=== PATIENT | male | born 1985 | race Two or more races ===

== ENCOUNTER 2021-06-04 03:35 | Emergency (ER) | payer OTHER, SELFPAY ==
--- NOTE | ~2021-06-04 | XR_ITS ---
EXAMINATION: XR CHEST CLINICAL INFORMATION: Chest pain COMPARISON: None TECHNIQUE: Frontal view of the chest was obtained. FINDINGS: Cardiac leads overlie the chest. The lungs are well expanded. There is no focal consolidation, edema, or effusion. No pneumothorax. The cardiomediastinal silhouette is within normal limits. No acute osseous abnormality. XR/XR chest 1V IMPRESSION: No acute pulmonary finding.
[2021-06-04 03:38] VITALS: BP 154/82; PULSE 133; RESP 20; TEMP 37.2; O2SAT 97; BMI 27.8
--- NOTE | 2021-06-04 03:41 | ECG_ITS ---
Test Reason : CP Blood Pressure : / mmHG Vent. Rate : 127 BPM Atrial Rate : 127 BPM P-R Int : 154 ms QRS Dur : 088 ms QT Int : 320 ms P-R-T Axes : 044 023 021 degrees QTc Int : 465 ms Sinus tachycardia Otherwise normal ECG No previous ECGs available Referred By: Generic ED Physician Electronically Signed By:JOHN TANNER MD
[2021-06-04 03:57] VITALS: BP 133/86; PULSE 133; RESP 15; O2SAT 97
[2021-06-04 04:02] LABS: MANUAL DIFF FLAG NO
[2021-06-04 04:03] LABS: Basophils Percent Auto 0.3 % (0-2); Eosinophils Percent Auto 0.1 % (0-4); Hematocrit 36.7 % (42-52); Hemoglobin 12.4 g/dl (14.0-18.0); Imm Gran Abs Auto 0.03 X10*3/uL (0.00-0.03); Imm Gran Pct Auto 0.3 % (0.0-0.4); Lymphocytes Absolute Auto 1.1 X10*3/uL (1.2-4.9); Lymphocytes Percent Auto 9.3 % (20-40); Mean Corpuscular HGB Conc 33.8 g/dl (31.0-36.0); Mean Corpuscular Volume 88.6 fL (80-98); Mean Platelet Volume 8.9 fL (9.4-12.4); Monocytes Absolute Auto 0.9 X10*3/uL (0.1-1.2); Monocytes Percent Auto 7.6 % (2-11); Neutrophils Absolute Auto 9.6 X10*3/uL (2.0-8.3); Neutrophils Percent Auto 82.4 % (45-73); Platelet Count 255 X10*3/uL (160-400); Red Blood Count 4.14 X10*6/uL (4.60-5.80); Red Cell Distribution Width 13.1 % (11.0-16.0); White Blood Count 11.6 X10*3/uL (4.8-10.8)
--- NOTE | 2021-06-04 04:11 | ED.CHESTPAIN ---
HPI - Chest Pain General Chief Complaint: Chest Pain Stated Complaint: Sharp pain when inhaling Time Seen by Provider: 06/04/21 03:55 Source: patient Mode of arrival: ambulatory Limitations: no limitations History of Present Illness HPI narrative: Patient no significant past medical history use cocaine occasionally notice pain in the left chest since 22:00 which is sharp in character get worse with movement use cocaine and midnight pain states same the secured to the hospital Related Data Allergies Allergy/AdvReac Type Severity Reaction Status Date / Time No Known Allergies Allergy Verified 06/04/21 03:41 [facility] Past Medical History Medical History (Updated 06/04/21 @ 04:52 by Mitch Ambriz MD) Asthma Social History Social History Advance Directives: No Advance Directives Information Provided: No Physical Exam Vital Signs: Vital Signs: Last Vital Signs Temp 98.9 F 06/04/21 03:38 Pulse 109 H 06/04/21 05:04 Resp 16 06/04/21 05:04 BP 137/77 06/04/21 05:04 Pulse Ox 98 06/04/21 05:04 Body Mass Index 27.8 Appearance: Alert. Oriented X3. No acute distress. Eyes: No pallor or icterus ENT: Pharynx normal. Oral Mucosa moist Neck: Normal inspection. Neck supple. CVS: Sinus tachycardia no murmur or gallop Pulses normal. Respiratory: No respiratory distress. Equal air entry bilateral, no wheezing/rales/rhonchi Abdomen: Soft and nontender. Bowel sounds are present, no mass palpable, no CVA tenderness Skin: Skin warm and dry. Normal skin color. Normal skin turgor. Extremities: No lower extremity edema. No calf tenderness Neuro: Oriented X 3 MDM - Chest Pain MDM Narrative Medical decision making narrative: Patient has atypical sharp pain for more than few hours with history of cocaine use no chest pain at this time EKG without any acute ischemic changes high sensitive troponin negative will discharge patient home Lab Data Attestation: I reviewed the patient's lab results. Result diagrams: 06/04/21 03:56 06/04/21 03:56 Labs: Lab Results 06/04/21 06/04/21 06/04/21 Range/Units 03:56 03:56 03:56 WBC 11.6 H (4.8-10.8) X10*3/uL RBC 4.14 L (4.60-5.80) X10*6/uL Hgb 12.4 L (14.0-18.0) g/dl Hct 36.7 L (42-52) % MCV 88.6 (80-98) fL MCH 30.0 (27.0-33.0) pg MCHC 33.8 (31.0-36.0) g/dl RDW 13.1 (11.0-16.0) % Plt Count 255 (160-400) X10*3/uL MPV 8.9 L (9.4-12.4) fL Immature Gran % (Auto) 0.3 (0.0-0.4) % Neut % (Auto) 82.4 H (45-73) % Lymph % (Auto) 9.3 L (20-40) % [place] % (Auto) 7.6 (2-11) % Eos % (Auto) 0.1 (0-4) % Baso % (Auto) 0.3 (0-2) % Lymph # (Auto) 1.1 L (1.2-4.9) X10*3/uL [place] # (Auto) 0.9 (0.1-1.2) X10*3/uL Eos # (Auto) 0.0 (0.0-0.4) X10*3/uL Baso # (Auto) 0.0 (0.0-0.2) X10*3/uL Abs Immat Gran (auto) 0.03 (0.00-0.03) X10*3/uL Absolute Neuts (auto) 9.6 H (2.0-8.3) X10*3/uL Absolute Nucleated RBC 0.000 (0.0-0.012) X10*3/uL Nucleated RBC % (auto) 0.0 (0.0-0.2) /100WBC Sodium 142 (135-145) mmol/L Potassium 4.1 (3.3-5.1) mmol/L Chloride 106 (96-108) mmol/L Carbon Dioxide 27 (22-29) mmol/L Anion Gap 13 (12-20) BUN 15 (9-16) mg/dL Creatinine 1.13 (0.5-1.4) mg/dL Estim Creat Clear Calc 98.2 Estimated GFR > 60 Random Glucose 121 H (60-115) mg/dL Calcium 9.4 (8.4-10.2) mg/dL Troponin I High Sens < 3.5 (<3.5-35.0) ng/L ECG Data ECG #1: Attestation: I personally reviewed and interpreted this ECG as follows: Interpretation: Sinus tachycardia with heart rate 127 beats per minute normal intervals normal axis no acute ST-T vision no acute ischemia Discharge Plan Discharge Clinical Impression: Chest pain Qualifiers: Chest pain type: chest pain on breathing Qualified Code(s): R07.1 - Chest pain on breathing Patient Disposition: Home, Self-Care Instructions: Chest Pain (ED) Additional Instructions: Your pain is likely musculoskeletal pain not from the heart. Do not use cocaine. Follow-up with PCP if chest pain continues or come to the ER Stand Alone Forms: Work/School Release Interventions: ED Discharge Assessment Last Done: 06/04/21 05:21 Discharge Date/Time: 06/04/21 05:22
[2021-06-04] MEDS: 0.9 % Sodium Chloride 1,000 ML 999 ML IVCONT (04:20)
[2021-06-04 04:26] LABS: Anion Gap 13 (12-20); Blood Urea Nitrogen 15 mg/dL (9-16); Calcium 9.4 mg/dL (8.4-10.2); Carbon Dioxide 27 mmol/L (22-29); Chloride 106 mmol/L (96-108); Creatinine Clr Calc Pharmacy 98.2; Estimated Glomerular Filt Rate > 60; Glucose Random 121 mg/dL (60-115); Potassium 4.1 mmol/L (3.3-5.1); Sodium 142 mmol/L (135-145)
[2021-06-04 04:27] LABS: Troponin-I High Sensitivity < 3.5 ng/L (<3.5-35.0)
[2021-06-04 05:04] VITALS: BP 137/77; PULSE 109; RESP 16; O2SAT 98
== END 2021-06-04 05:22 | disposition home or self-care (01) ==
PROVIDERS: Emergency Provider Internal Medicine; PCP Internal Medicine
DX: R07.1 Chest pain on breathing (principal); R00.0 Tachycardia, unspecified; F14.90 Cocaine use, unspecified, uncomplicated
CPT/HCPCS: 36415; 71045; 80048; 84484; 85025; 93005; 96360; 99284

== ENCOUNTER 2022-11-11 13:26 | Emergency (ER) | payer OTHER, SELFPAY ==
--- NOTE | ~2022-11-11 | XR_ITS ---
EXAMINATION: XR CHEST CLINICAL INFORMATION: Nausea and vomiting with cough and sputum. Exposed to fluid. COMPARISON: June 04, 2021 TECHNIQUE: 2 views of the chest were obtained. FINDINGS: No significant abnormality is noted involving the heart, lungs, mediastinum, bony thorax or soft tissues. XR/XR chest 2V IMPRESSION: No acute disease.
[2022-11-11 13:59] VITALS: BP 100/72; PULSE 78; RESP 19; TEMP 36.6; O2SAT 98; BMI 29.9
--- NOTE | 2022-11-11 13:59 | ED.GENADULT ---
HPI - General Adult General Chief complaint: Nausea/Vomiting/Diarrhea <AARON Vazquez - Last Filed: 11/11/22 14:01> Stated complaint: fever, coughing, chills ,not feeling well <AARON Vazquez - Last Filed: 11/11/22 14:01> Time Seen by Provider: 11/11/22 15:08 <AARON Vazquez - Last Filed: 11/11/22 14:01> Source: patient <AARON Sun - Last Filed: 11/11/22 17:17> Mode of arrival: ambulatory <AARON Sun Last Filed: 11/11/22 17:17> Limitations: no limitations <AARON Sun Last Filed: 11/11/22 17:17> History of Present Illness HPI narrative: 37-year-old male presents the ER for evaluation of 4 days of not feeling well. He states he has had body aches, chills, coughing, nausea and vomiting for the last few days. He has filled weak and tired. He reports his kids have similar symptoms. He has been unable to work this week. He states his kids had similar symptoms. He denies any chest pain, difficulty breathing, abdominal pain. He reports upset stomach and decreased appetite but no abdominal pain per se. No known COVID or flu exposures. <AARON Sun - Last Filed: 11/11/22 17:17> MD complaint: Chills, vomiting, body aches <AARON Sun Last Filed: 11/11/22 17:17> Onset (ago): day(s) (4) <AARON Sun - Last Filed: 11/11/22 17:17> Radiation: non-radiation <AARON Sun Last Filed: 11/11/22 17:17> Severity: moderate <AARON Sun Last Filed: 11/11/22 17:17> Severity scale (1-10): 6 <AARON Sun Last Filed: 11/11/22 17:17> Quality: aching <AARON Sun Last Filed: 11/11/22 17:17> Pain Consistency: intermittent <AARON Sun - Last Filed: 11/11/22 17:17> Relieving factors: none <AARON Sun Last Filed: 11/11/22 17:17> Exacerbating factors: none <AARON Sun - Last Filed: 11/11/22 17:17> Associated symptoms: cough, fever/chills, headaches, loss of appetite, malaise, nausea/vomiting and weakness <AARON Sun - Last Filed: 11/11/22 17:17> Treatments prior to arrival: none <AARON Sun - Last Filed: 11/11/22 17:17> Related Data Home medications: Previous Rx's Medication Instructions Recorded benzonatate 100 mg capsule 100 mg PO TID PRN cough #30 caps 11/11/22 ondansetron 4 mg disintegrating 4 mg PO Q8H PRN nausea and 11/11/22 tablet vomiting #7 tabs <AARON Vazquez - Last Filed: 11/11/22 14:01> Allergies/adverse reactions: Allergies Allergy/AdvReac Type Severity Reaction Status Date / Time No Known Allergies Allergy Verified 06/04/21 03:41 <AARON Vazquez - Last Filed: 11/11/22 14:01> Review of Systems Review of Systems: Yes all other systems are reviewed and are negative <AARON Sun - Last Filed: 11/11/22 17:17> [facility] Past Medical History Medical History: Medical History (Updated 11/11/22 @ 15:09 by AARON Sun) Asthma <AARON Vazquez - Last Filed: 11/11/22 14:01> Social History Social History: Social History Advance Directives: No <AARON Vazquez Last Filed: 11/11/22 14:01> Physical Exam ED Vital Signs: Vital Signs - 24 hr 11/11/22 13:59 11/11/22 14:58 Temperature 98 F 98.0 F Pulse Rate 78 101 H Respiratory Rate 19 20 Blood Pressure 100/72 103/74 Pulse Oximetry 98 96 Oxygen Delivery Method Room Air Room Air BMI result Body Mass Index 29.9 <AARON Vazquez Last Filed: 11/11/22 14:01> Vital Signs - 24 hr 11/11/22 13:59 11/11/22 14:58 Temperature 98 F 98.0 F Pulse Rate 78 101 H Respiratory Rate 19 20 Blood Pressure 100/72 103/74 Pulse Oximetry 98 96 Oxygen Delivery Method Room Air Room Air BMI result Body Mass Index 29.9 <AARON Sun Last Filed: 11/11/22 17:17> Appearance: Alert. Oriented X3. Pale Eyes: Pupils equal, round and reactive to light. ENT: Pharynx normal. Moist mucus membranes Neck: Normal inspection. Neck supple. CVS: Normal heart rate and rhythm. Pulses normal. Respiratory: No respiratory distress. Breath sounds normal. Abdomen: Soft and nontender. +BS x4 Skin: Skin warm and dry. Normal skin color. Normal skin turgor. No rashes. Extremities: No lower extremity edema. Neuro: Oriented X 3. Grossly normal, nonfocal, steady gait <AARON Sun Last Filed: 11/11/22 17:17> Course Course Course Narrative: RME-14PM 37yoM presenting to the ER with URI complaints which include fevers, chills, fatigue, malaise, nasal congestion rhinorrhea, cough with sputum production, nausea/vomiting since Tuesday worse today. Reports his kids also has similar symptoms or diagnosed with the flu negative for RSV and COVID. 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 Denies recent travel or any other symptoms complaints or concerns at this time. Plan: Will obtain labs, chest x-ray and COVID/RSV/flu swab. Patient will be seen in the ER. <AARON Vazquez - Last Filed: 11/11/22 14:01> Reevaluation(s) Reevaluation #1: Labs are unremarkable. Viral swabs are negative. Chest x-ray without pneumonia. Patient tolerating ice chips. Will discharge with Zofran and antitussive agent. Discussed management of viral illnesses. Stable for discharge home. <AARON Sun Last Filed: 11/11/22 17:17> Medical Decision Making Differential Diagnosis Differential Diagnoses: The differential diagnosis associated with the presentation includes <AARON Sun Last Filed: 11/11/22 17:17> Viral syndrome, COVID, flu, RSV, gastroenteritis, less likely UTI, appendicitis, cholecystitis, diverticulitis, rhabdomyolysis, bacterial infection <AARON Sun - Last Filed: 11/11/22 17:17> Lab Data [facility] Lab Attestation statement: I reviewed the patient's lab results. <AARON Sun - Last Filed: 11/11/22 17:17> Result Diagrams: 11/11/22 14:05 11/11/22 14:05 <AARON Vazquez - Last Filed: 11/11/22 14:01> Labs: Lab Results 11/11/22 11/11/22 11/11/22 Range/Units 14:03 14:05 14:05 WBC 9.7 (4.8-10.8) X10*3/uL RBC 4.67 (4.60-5.80) X10*6/uL Hgb 13.9 L (14.0-18.0) g/dl Hct 40.4 L (42.0-52.0) % MCV 86.5 (80.0-98.0) fL MCH 29.8 (27.0-33.0) pg MCHC 34.4 (31.0-36.0) g/dl RDW 13.2 (11.0-16.0) % Plt Count 379 (160-400) X10*3/uL MPV 8.8 L (9.4-12.4) fL Immature Gran % (Auto) 0.3 (0.0-0.4) % Neut % (Auto) 68.9 (45-73) % Lymph % (Auto) 22.1 (20-40) % [place] % (Auto) 8.4 (2-11) % Eos % (Auto) 0.1 (0-4) % Baso % (Auto) 0.2 (0-2) % Lymph # (Auto) 2.2 (1.2-4.9) X10*3/uL [place] # (Auto) 0.8 (0.1-1.2) X10*3/uL Eos # (Auto) 0.0 (0.0-0.4) X10*3/uL Baso # (Auto) 0.0 (0.0-0.2) X10*3/uL Abs Immat Gran (auto) 0.03 (0.00-0.03) X10*3/uL Absolute Neuts (auto) 6.7 (2.0-8.3) x10*3/uL Absolute Nucleated RBC 0.000 (0.0-0.012) X10*3/uL Nucleated RBC % (auto) 0.0 (0.0-0.2) /100WBC PT (10.0-13.1) SEC INR (0.9-1.1) Sodium 138 (135-145) mmol/L Potassium 3.3 (3.3-5.1) mmol/L Chloride 103 (96-108) mmol/L Carbon Dioxide 24 (22-29) mmol/L Anion Gap 14 (12-20) BUN 17 H (9-16) mg/dL Creatinine 1.02 (0.5-1.4) mg/dL Estim Creat Clear Calc 119.0 Estimated GFR > 60 Random Glucose 115 (60-115) mg/dL Calcium 9.5 (8.4-10.2) mg/dL Magnesium 2.2 (1.6-2.6) mg/dL Total Bilirubin 0.4 (0.0-1.0) mg/dL AST 13 (5-37) U/L ALT 16 (0-40) U/L Alkaline Phosphatase 103 (39-117) U/L Total Protein 8.5 H (6.5-8.0) g/dL Albumin 4.5 (3.5-5.0) g/dL Urine Color Urine Appearance Urine pH (5.0-9.0) Ur Specific [place] (1.005-1.025) Urine Protein (Neg-Trace) mg/dL Urine Glucose (UA) (Negative) mg/dL Urine Ketones (Negative) mg/dL Urine Blood (Negative) Urine Nitrite (Negative) Ur Leukocyte Esterase (Negative) Urine RBC (0-2) /HPF Urine WBC (0-5) /HPF Ur Squamous Epith Cells (0-2) /HPF Urine Bacteria (None Seen) Hyaline Casts (0-2) /LPF Influenza Type A (PCR) NEGATIVE (Negative) Influenza Type B (PCR) NEGATIVE (Negative) RSV RNA Qual (PCR) NEGATIVE (Negative) SARS-CoV-2 RNA (RT-PCR) NEGATIVE (Negative) 11/11/22 11/11/22 11/11/22 Range/Units 14:05 14:05 15:05 WBC (4.8-10.8) X10*3/uL RBC (4.60-5.80) X10*6/uL Hgb (14.0-18.0) g/dl Hct (42.0-52.0) % MCV (80.0-98.0) fL MCH (27.0-33.0) pg MCHC (31.0-36.0) g/dl RDW (11.0-16.0) % Plt Count (160-400) X10*3/uL MPV (9.4-12.4) fL Immature Gran % (Auto) (0.0-0.4) % Neut % (Auto) (45-73) % Lymph % (Auto) (20-40) % [place] % (Auto) (2-11) % Eos % (Auto) (0-4) % Baso % (Auto) (0-2) % Lymph # (Auto) (1.2-4.9) X10*3/uL [place] # (Auto) (0.1-1.2) X10*3/uL Eos # (Auto) (0.0-0.4) X10*3/uL Baso # (Auto) (0.0-0.2) X10*3/uL Abs Immat Gran (auto) (0.00-0.03) X10*3/uL Absolute Neuts (auto) (2.0-8.3) x10*3/uL Absolute Nucleated RBC (0.0-0.012) X10*3/uL Nucleated RBC % (auto) (0.0-0.2) /100WBC PT 14.7 H (10.0-13.1) SEC INR 1.3 H (0.9-1.1) Sodium (135-145) mmol/L Potassium (3.3-5.1) mmol/L Chloride (96-108) mmol/L Carbon Dioxide (22-29) mmol/L Anion Gap (12-20) BUN (9-16) mg/dL Creatinine (0.5-1.4) mg/dL Estim Creat Clear Calc Estimated GFR Random Glucose (60-115) mg/dL Calcium (8.4-10.2) mg/dL Magnesium Cancelled (1.6-2.6) mg/dL Total Bilirubin (0.0-1.0) mg/dL AST (5-37) U/L ALT (0-40) U/L Alkaline Phosphatase (39-117) U/L Total Protein (6.5-8.0) g/dL Albumin (3.5-5.0) g/dL Urine Color Dark Yellow Urine Appearance Cloudy Urine pH 6.0 (5.0-9.0) Ur Specific [place] >= 1.030 H (1.005-1.025) Urine Protein 100 (2+) H (Neg-Trace) mg/dL Urine Glucose (UA) Negative (Negative) mg/dL Urine Ketones 15 (Negative) mg/dL Urine Blood Negative (Negative) Urine Nitrite Negative (Negative) Ur Leukocyte Esterase Negative (Negative) Urine RBC 0-2 (0-2) /HPF Urine WBC 0-5 (0-5) /HPF Ur Squamous Epith Cells 6-10 (0-2) /HPF Urine Bacteria None Seen (None Seen) Hyaline Casts >20 (0-2) /LPF Influenza Type A (PCR) (Negative) Influenza Type B (PCR) (Negative) RSV RNA Qual (PCR) (Negative) SARS-CoV-2 RNA (RT-PCR) (Negative) <AARON Vazquez - Last Filed: 11/11/22 14:01> Lab Results 11/11/22 11/11/22 11/11/22 Range/Units 14:03 14:05 14:05 WBC 9.7 (4.8-10.8) X10*3/uL RBC 4.67 (4.60-5.80) X10*6/uL Hgb 13.9 L (14.0-18.0) g/dl Hct 40.4 L (42.0-52.0) % MCV 86.5 (80.0-98.0) fL MCH 29.8 (27.0-33.0) pg MCHC 34.4 (31.0-36.0) g/dl RDW 13.2 (11.0-16.0) % Plt Count 379 (160-400) X10*3/uL MPV 8.8 L (9.4-12.4) fL Immature Gran % (Auto) 0.3 (0.0-0.4) % Neut % (Auto) 68.9 (45-73) % Lymph % (Auto) 22.1 (20-40) % [place] % (Auto) 8.4 (2-11) % Eos % (Auto) 0.1 (0-4) % Baso % (Auto) 0.2 (0-2) % Lymph # (Auto) 2.2 (1.2-4.9) X10*3/uL [place] # (Auto) 0.8 (0.1-1.2) X10*3/uL Eos # (Auto) 0.0 (0.0-0.4) X10*3/uL Baso # (Auto) 0.0 (0.0-0.2) X10*3/uL Abs Immat Gran (auto) 0.03 (0.00-0.03) X10*3/uL Absolute Neuts (auto) 6.7 (2.0-8.3) x10*3/uL Absolute Nucleated RBC 0.000 (0.0-0.012) X10*3/uL Nucleated RBC % (auto) 0.0 (0.0-0.2) /100WBC PT (10.0-13.1) SEC INR (0.9-1.1) Sodium 138 (135-145) mmol/L Potassium 3.3 (3.3-5.1) mmol/L Chloride 103 (96-108) mmol/L Carbon Dioxide 24 (22-29) mmol/L Anion Gap 14 (12-20) BUN 17 H (9-16) mg/dL Creatinine 1.02 (0.5-1.4) mg/dL Estim Creat Clear Calc 119.0 Estimated GFR > 60 Random Glucose 115 (60-115) mg/dL Calcium 9.5 (8.4-10.2) mg/dL Magnesium 2.2 (1.6-2.6) mg/dL Total Bilirubin 0.4 (0.0-1.0) mg/dL AST 13 (5-37) U/L ALT 16 (0-40) U/L Alkaline Phosphatase 103 (39-117) U/L Total Protein 8.5 H (6.5-8.0) g/dL Albumin 4.5 (3.5-5.0) g/dL Urine Color Urine Appearance Urine pH (5.0-9.0) Ur Specific [place] (1.005-1.025) Urine Protein (Neg-Trace) mg/dL Urine Glucose (UA) (Negative) mg/dL Urine Ketones (Negative) mg/dL Urine Blood (Negative) Urine Nitrite (Negative) Ur Leukocyte Esterase (Negative) Urine RBC (0-2) /HPF Urine WBC (0-5) /HPF Ur Squamous Epith Cells (0-2) /HPF Urine Bacteria (None Seen) Hyaline Casts (0-2) /LPF Influenza Type A (PCR) NEGATIVE (Negative) Influenza Type B (PCR) NEGATIVE (Negative) RSV RNA Qual (PCR) NEGATIVE (Negative) SARS-CoV-2 RNA (RT-PCR) NEGATIVE (Negative) 11/11/22 11/11/22 11/11/22 Range/Units 14:05 14:05 15:05 WBC (4.8-10.8) X10*3/uL RBC (4.60-5.80) X10*6/uL Hgb (14.0-18.0) g/dl Hct (42.0-52.0) % MCV (80.0-98.0) fL MCH (27.0-33.0) pg MCHC (31.0-36.0) g/dl RDW (11.0-16.0) % Plt Count (160-400) X10*3/uL MPV (9.4-12.4) fL Immature Gran % (Auto) (0.0-0.4) % Neut % (Auto) (45-73) % Lymph % (Auto) (20-40) % [place] % (Auto) (2-11) % Eos % (Auto) (0-4) % Baso % (Auto) (0-2) % Lymph # (Auto) (1.2-4.9) X10*3/uL [place] # (Auto) (0.1-1.2) X10*3/uL Eos # (Auto) (0.0-0.4) X10*3/uL Baso # (Auto) (0.0-0.2) X10*3/uL Abs Immat Gran (auto) (0.00-0.03) X10*3/uL Absolute Neuts (auto) (2.0-8.3) x10*3/uL Absolute Nucleated RBC (0.0-0.012) X10*3/uL Nucleated RBC % (auto) (0.0-0.2) /100WBC PT 14.7 H (10.0-13.1) SEC INR 1.3 H (0.9-1.1) Sodium (135-145) mmol/L Potassium (3.3-5.1) mmol/L Chloride (96-108) mmol/L Carbon Dioxide (22-29) mmol/L Anion Gap (12-20) BUN (9-16) mg/dL Creatinine (0.5-1.4) mg/dL Estim Creat Clear Calc Estimated GFR Random Glucose (60-115) mg/dL Calcium (8.4-10.2) mg/dL Magnesium Cancelled (1.6-2.6) mg/dL Total Bilirubin (0.0-1.0) mg/dL AST (5-37) U/L ALT (0-40) U/L Alkaline Phosphatase (39-117) U/L Total Protein (6.5-8.0) g/dL Albumin (3.5-5.0) g/dL Urine Color Dark Yellow Urine Appearance Cloudy Urine pH 6.0 (5.0-9.0) Ur Specific [place] >= 1.030 H (1.005-1.025) Urine Protein 100 (2+) H (Neg-Trace) mg/dL Urine Glucose (UA) Negative (Negative) mg/dL Urine Ketones 15 (Negative) mg/dL Urine Blood Negative (Negative) Urine Nitrite Negative (Negative) Ur Leukocyte Esterase Negative (Negative) Urine RBC 0-2 (0-2) /HPF Urine WBC 0-5 (0-5) /HPF Ur Squamous Epith Cells 6-10 (0-2) /HPF Urine Bacteria None Seen (None Seen) Hyaline Casts >20 (0-2) /LPF Influenza Type A (PCR) (Negative) Influenza Type B (PCR) (Negative) RSV RNA Qual (PCR) (Negative) SARS-CoV-2 RNA (RT-PCR) (Negative) <AARON Sun - Last Filed: 11/11/22 17:17> Independent Interpretation I performed an independent interpretation of an: Plain X-Ray <AARON Sun - Last Filed: 11/11/22 17:17> Interpretation: Chest x-ray reviewed, no pneumonia, no effusion <AARON Sun - Last Filed: 11/11/22 17:17> Radiology Impression Discussion of test interpretation with radiology: I have reviewed the radiologist's reading. <AARON Sun - Last Filed: 11/11/22 17:17> Radiologist Impression: MPRESSION: No acute disease. <AARON Sun - Last Filed: 11/11/22 17:17> External Record Review External record reviewed: Outpatient record, Prior outpatient labs and Prior outpatient radiology <AARON Sun - Last Filed: 11/11/22 17:17> Prescription Management I considered prescription management with: Antibiotic <ARAON Sun - Last Filed: 11/11/22 17:17> no bacterial infection <AARON Sun - Last Filed: 11/11/22 17:17> Critical Care Time Critical Care Time Critical Care Time: No <AARON Sun - Last Filed: 11/11/22 17:17> Discharge Plan Discharge Clinical Impression: Acute viral syndrome <AARON Vazquez - Last Filed: 11/11/22 14:01> Patient Disposition: Home, Self-Care <AARON Vazquez - Last Filed: 11/11/22 14:01> Instructions: Viral Syndrome (ED) <AARON Vazquez Last Filed: 11/11/22 14:01> Additional Instructions: Your lab workup today was unremarkable. Your chest x-ray was normal. Your symptoms are most likely due to another viral illness. Treatment is rest and supportive care. Drink plenty of fluids. Rest. Drink plenty of fluids. Take over the counter cold/flu medications as needed for your symptoms. Take Tylenol and/or Motrin as needed for fevers and body aches. Follow up with your doctor next week. If you develop new or worsening symptoms call 911 or come back to the ER for further evaluation. <AARON Vazquez Last Filed: 11/11/22 14:01> Prescriptions: New ondansetron 4 mg tablet,disintegrating 4 mg PO Q8H PRN (Reason: nausea and vomiting) Qty: 7 0RF benzonatate 100 mg capsule 100 mg PO TID PRN (Reason: cough) Qty: 30 0RF <AARON Vazquez - Last Filed: 11/11/22 14:01> Stand Alone Forms: Work/School Release <AARON Vazquez - Last Filed: 11/11/22 14:01> Interventions: ED Discharge Assessment Last Done: 11/11/22 15:24 <AARON Vazquez - Last Filed: 11/11/22 14:01> Discharge Date/Time: 11/11/22 15:26 <AARON Vazquez - Last Filed: 11/11/22 14:01>
[2022-11-11 14:11] LABS: MANUAL DIFF FLAG NO
[2022-11-11 14:15] LABS: Basophils Percent Auto 0.2 % (0-2); Eosinophils Percent Auto 0.1 % (0-4); Hematocrit 40.4 % (42.0-52.0); Hemoglobin 13.9 g/dl (14.0-18.0); Imm Gran Abs Auto 0.03 X10*3/uL (0.00-0.03); Imm Gran Pct Auto 0.3 % (0.0-0.4); Lymphocytes Absolute Auto 2.2 X10*3/uL (1.2-4.9); Lymphocytes Percent Auto 22.1 % (20-40); Mean Corpuscular HGB Conc 34.4 g/dl (31.0-36.0); Mean Corpuscular Hemoglobin 29.8 pg (27.0-33.0); Mean Corpuscular Volume 86.5 fL (80.0-98.0); Mean Platelet Volume 8.8 fL (9.4-12.4); Monocytes Absolute Auto 0.8 X10*3/uL (0.1-1.2); Monocytes Percent Auto 8.4 % (2-11); Neutrophils Absolute Auto 6.7 x10*3/uL (2.0-8.3); Neutrophils Percent Auto 68.9 % (45-73); Platelet Count 379 X10*3/uL (160-400); Red Blood Count 4.67 X10*6/uL (4.60-5.80); Red Cell Distribution Width 13.2 % (11.0-16.0); White Blood Count 9.7 X10*3/uL (4.8-10.8)
[2022-11-11 14:32] LABS: INTERNATIONAL NORM RATIO 1.3 (0.9-1.1); Prothrombin Time 14.7 SEC (10.0-13.1)
[2022-11-11 14:36] LABS: Alanine Aminotransferase 16 U/L (0-40); Albumin Level 4.5 g/dL (3.5-5.0); Alkaline Phosphatase 103 U/L (39-117); Anion Gap 14 (12-20); Aspartate Amino Transferase 13 U/L (5-37); Bilirubin Total 0.4 mg/dL (0.0-1.0); Blood Urea Nitrogen 17 mg/dL (9-16); Calcium 9.5 mg/dL (8.4-10.2); Carbon Dioxide 24 mmol/L (22-29); Chloride 103 mmol/L (96-108); Estimated Glomerular Filt Rate > 60; Glucose Random 115 mg/dL (60-115); Magnesium 2.2 mg/dL (1.6-2.6); Potassium 3.3 mmol/L (3.3-5.1); Sodium 138 mmol/L (135-145); Total Protein 8.5 g/dL (6.5-8.0)
[2022-11-11 14:55] LABS: Influenza A PCR NEGATIVE (Negative); Influenza B PCR NEGATIVE (Negative); Resp Syncy Virus RNA Qual PCR NEGATIVE (Negative); SARS COV2 PCR INHOUSE NEGATIVE (Negative)
[2022-11-11 14:58] VITALS: BP 103/74; PULSE 101; RESP 20; TEMP 36.7; O2SAT 96
[2022-11-11 15:20] LABS: Appearance Urine Cloudy; Color Urine Dark Yellow; Glucose Urine UA Negative (Negative); Leukocyte Esterase Urine Negative (Negative); Nitrite Urine Negative (Negative); Specific Gravity - Urine >= 1.030 (1.005-1.025); UMIC TRIGGER UACC YES; Urine Blood Negative (Negative); Urine Ketones 15 mg/dL (Negative); Urine Protein 100 (2+) mg/dL (Neg-Trace)
[2022-11-11 15:32] LABS: Bacteria Urine None Seen (None Seen); Hyaline Casts Urine >20 /LPF (0-2); RBC Urine 0-2 /HPF (0-2); WBC Urine 0-5 /HPF (0-5)
== END 2022-11-11 15:26 | disposition home or self-care (01) ==
PROVIDERS: Physician Assistant Medical; Emergency Provider Emergency Medicine Emergency Medical Services; PCP Internal Medicine
DX: B34.9 Viral infection, unspecified (principal); R11.2 Nausea with vomiting, unspecified; M79.10 Myalgia, unspecified site; R05.9 Cough, unspecified; Z20.822 Contact with and (suspected) exposure to COVID-19; Z20.828 Contact with and (suspected) exposure to other viral communicable diseases; Z79.899 Other long term (current) drug therapy
CPT/HCPCS: 0241U; 36415; 71046; 80053; 81001; 83735; 85025; 85610; 99283

== ENCOUNTER 2022-11-15 16:12 | Emergency (ER) | payer OTHER, SELFPAY ==
--- NOTE | ~2022-11-15 | XR_ITS ---
EXAMINATION: XR CHEST CLINICAL INFORMATION: Syncope COMPARISON: Chest x-ray 11/11/2022 TECHNIQUE: Frontal view of the chest was obtained. FINDINGS: The lungs are clear. No airspace consolidation, pleural effusion, or pneumothorax. The cardiomediastinal silhouette is within normal limits. No acute osseous injury. XR/XR chest 1V IMPRESSION: No acute pulmonary process.
--- NOTE | ~2022-11-15 | CT_ITS ---
EXAMINATION: CT HEAD WITHOUT CONTRAST CLINICAL INFORMATION: Syncope and head strike COMPARISON: Head CT 08/14/2019 TECHNIQUE: Imaging was performed from the skull base to vertex without intravenous administration of contrast. This CT examination was performed using dose optimization techniques as appropriate, variously including the following: *Automated exposure control *Adjustment of mA and/or kV according to patient size (this includes techniques or standardized protocols for targeted exams where dose is matched to indication/reason for exam; i.e. extremities or head) *Use of iterative reconstruction technique Total exam dose length product: 746 mGy-cm FINDINGS: No intra or extra-axial fluid collection, hemorrhage, or mass. No ventriculomegaly. No midline shift or herniation. Basal cisterns are patent. Pappas-white matter differentiation is maintained. No territorial encephalomalacia. No significant volume loss. There is no abnormal attenuation within the brain parenchyma. No calvarial fracture or soft tissue abnormality. Prominent mucosal thickening of the right maxillary, right sphenoid and right greater than left ethmoid sinuses as well as along the right frontal sinus drainage pathway. No air-fluid levels. Mastoid air cells are normally aerated. CT/CT head/brain wo IV con IMPRESSION: 1. No acute intracranial pathology. 2. No calvarial fracture. 3. Paranasal sinus disease, as above.
--- NOTE | ~2022-11-15 | US_ITS ---
EXAMINATION: US VENOUS WITH DOPPLER UPPER EXTREMITY, LEFT CLINICAL INFORMATION: Left arm swelling and pain with syncope COMPARISON: None TECHNIQUE: Ultrasound of the upper extremity is performed using compression sonography and color and pulse Doppler flow with assessment of augmentation of flow. There is also imaging and Doppler assessment of the jugular and subclavian veins. Spectral analysis with color-flow imaging is performed. FINDINGS: Respiratory variation, normal compression, and augmented flow are noted throughout the upper extremity including the axillary, brachial, cubital, and radial and ulnar veins. There is normal flow in the internal jugular and subclavian veins. There is no visible deep or superficial thrombophlebitis. If the patient's symptoms progress, a followup ultrasound in 5 -7 days might be of value to exclude proximal propagation from a nonvisualized distal arm vein. US/US venous duplex UE LT IMPRESSION: No DVT demonstrated in the left upper extremity.
[2022-11-15 16:34] VITALS: BP 126/70; PULSE 84; RESP 16; TEMP 36.9; O2SAT 98; BMI 19.2
--- NOTE | 2022-11-15 16:35 | ECG_ITS ---
Test Reason : syncopee Blood Pressure : / mmHG Vent. Rate : 072 BPM Atrial Rate : 072 BPM P-R Int : 168 ms QRS Dur : 090 ms QT Int : 408 ms P-R-T Axes : 058 020 010 degrees QTc Int : 446 ms Normal sinus rhythm with sinus arrhythmia Normal ECG When compared with ECG of 04-JUN-2021 03:47, Vent. rate has decreased BY 55 BPM Referred By: Ana León Electronically Signed By:FALGUNI FERRIS
--- NOTE | 2022-11-15 16:35 | ED_ITS ---
HPI - Syncope General Chief Complaint: Syncope <AARON Sun - Last Filed: 11/15/22 16:38> Stated Complaint: swelling and pain in hands <AARON Sun - Last Filed: 11/15/22 16:38> Time Seen by Provider: 11/15/22 19:12 <AARON Sun - Last Filed: 11/15/22 16:38> Source: patient <Marcus Mitchell MD - Last Filed: 11/15/22 22:20> Limitations: no limitations <Marcus Mitchell MD - Last Filed: 11/15/22 22:20> History of Present Illness HPI narrative: This is a 37-year-old male who had been playing with his son today, when he had sudden loss of consciousness and he came to with his cradling his head. Patient denies any preceding symptoms. He does have a headache now, denies any history of a similar episode, denies any history of seizures. Patient has noted some swelling to his left hand for a few days with some throbbing pain but denies any trauma. He had been seen in the ED recently for viral syndrome but states the blood draw had been on his right arm not his left he did not have an IV in his left arm. He denies any chest pain or shortness of breath. Denies abdominal pain. Denies any black or bloody stool. He denies any other extremity swelling. <Marcus Mitchell MD - Last Filed: 11/15/22 22:20> Related Data Home Medications: Previous Rx's Medication Instructions Recorded benzonatate 100 mg capsule 100 mg PO TID PRN cough #30 caps 11/11/22 ondansetron 4 mg disintegrating 4 mg PO Q8H PRN nausea and 11/11/22 tablet vomiting #7 tabs <AARON Sun - Last Filed: 11/15/22 16:38> Allergies/Adverse Reactions: Allergies Allergy/AdvReac Type Severity Reaction Status Date / Time No Known Allergies Allergy Verified 11/15/22 16:36 <AARNO Sun - Last Filed: 11/15/22 16:38> Review of Systems Review of Systems: As per HPI <Marcus Mitchell MD - Last Filed: 11/15/22 22:20> [facility] Past Medical History Medical History: Medical History (Updated 11/15/22 @ 20:42 by Marcus Mitchell MD) Asthma <AARON Sun - Last Filed: 11/15/22 16:38> Social History Social History: Social History Smoked in Last 30 Days: No Use of substances other than those prescribed or required for medical reasons: Yes Substance Use Type: Marijuana Advance Directives: No Advance Directives Information Provided: No <AARON Sun - Last Filed: 11/15/22 16:38> Physical Exam Vital Signs: Vital Signs: Last Vital Signs Temp 97.7 F 11/15/22 21:20 Pulse 71 11/15/22 21:20 Resp 15 11/15/22 21:20 BP 135/72 11/15/22 21:20 Pulse Ox 95 11/15/22 21:38 O2 Del Method 11/15/22 21:38 BMI result Body Mass Index 19.2 <AARON Sun - Last Filed: 11/15/22 16:38> Vital Signs: Last Vital Signs Temp 97.7 F 11/15/22 21:20 Pulse 71 11/15/22 21:20 Resp 15 11/15/22 21:20 BP 135/72 11/15/22 21:20 Pulse Ox 95 11/15/22 21:38 O2 Del Method 11/15/22 21:38 BMI result Body Mass Index 19.2 <Marcus Mitchell MD - Last Filed: 11/15/22 22:20> Const: Other: PERRLA Conj [place] Mucous membranes moist Throat clear Neck supple Lungs CTA Heart RRR no murmurs rubs or gallops Abd soft, non tender, non distended. Rectal exam normal tone, scant material, heme-negative Extremities no pitting edema. Mild left hand swelling, note general swelling of the left arm, no erythema or ecchymosis Neuro alert and oriented x 3, non focal <Marcus Mitchell MD - Last Filed: 11/15/22 22:20> GI: Rectal Exam - Male: Yes visual inspection normal, Yes normal sphincter tone, Yes heme negative stool and No External hemorrhoid(s) present <Marcus Mitchell MD - Last Filed: 11/15/22 22:20> Course Course Course Narrative: RME - 37 y/o male hx cholecystectomy, no known medical problems who presents to the ER for evaluation after he had an unwitnessed syncopal episode at home 1 hour ago while playing with his 18 y/o son. No prodromal symptoms. Woke up with his partner holding up his head, unknown down time. Reports diffuse body aches, headache. He also reports bilateral hand swelling and numbness for the last 2 days. No history of syncope in the past. VSS in triage. CT scan, EKG and labs ordered. <AARON Sun - Last Filed: 11/15/22 16:38> Medical Decision Making Medical Decision Making [facility] Narrative: Patient with syncopal episode today, does have anemia compared to his previous values, had been here last week for a viral syndrome. Patient denied any other symptoms except swelling in his left hand. Stool was heme negative. Ultrasound was done to rule out DVT of the left upper extremity and was negative. D-dimer was negative. Patient did have a urine drug screen positive for cocaine as well as fentanyl, and marijuana. EKG did not show any concerning findings. Syncope of unclear etiology, possibly drug related. Anemia without evidence of acute blood loss. Left hand swelling of unclear etiology, no evidence of DVT, no trauma reported <Marcus Mitchell MD - Last Filed: 11/15/22 22:20> Differential Diagnosis Differential Diagnoses: The differential diagnosis associated with the presentation includes <Marcus Mitchell MD - Last Filed: 11/15/22 22:20> Lab Data [facility] Lab Attestation statement: I reviewed the patient's lab results. <Marcus Mitchell MD - Last Filed: 11/15/22 22:20> Result Diagrams: 11/15/22 16:51 11/15/22 16:51 <AARON Sun - Last Filed: 11/15/22 16:38> Labs: Lab Results 11/15/22 11/15/22 11/15/22 Range/Units 16:51 16:51 16:51 WBC 6.9 (4.8-10.8) X10*3/uL RBC 3.54 L D (4.60-5.80) X10*6/uL Hgb 10.6 L D (14.0-18.0) g/dl Hct 32.5 L (42.0-52.0) % MCV 91.8 D (80.0-98.0) fL MCH 29.9 (27.0-33.0) pg MCHC 32.6 (31.0-36.0) g/dl RDW 13.5 (11.0-16.0) % Plt Count 288 (160-400) X10*3/uL MPV 8.8 L (9.4-12.4) fL Immature Gran % (Auto) 0.1 (0.0-0.4) % Neut % (Auto) 55.0 (45-73) % Lymph % (Auto) 31.4 (20-40) % Mer[place] % (Auto) 10.4 (2-11) % Eos % (Auto) 2.7 (0-4) % Baso % (Auto) 0.4 (0-2) % Lymph # (Auto) 2.2 (1.2-4.9) X10*3/uL Merrick # (Auto) 0.7 (0.1-1.2) X10*3/uL Eos # (Auto) 0.2 (0.0-0.4) X10*3/uL Baso # (Auto) 0.0 (0.0-0.2) X10*3/uL Abs Immat Gran (auto) 0.01 (0.00-0.03) X10*3/uL Absolute Neuts (auto) 3.8 (2.0-8.3) x10*3/uL Absolute Nucleated RBC 0.000 (0.0-0.012) X10*3/uL Nucleated RBC % (auto) 0.0 (0.0-0.2) /100WBC D-Dimer High Sensitivty NG/ML Sodium 140 (135-145) mmol/L Potassium 3.7 (3.3-5.1) mmol/L Chloride 103 (96-108) mmol/L Carbon Dioxide 31 H (22-29) mmol/L Anion Gap 10 L (12-20) BUN 11 (9-16) mg/dL Creatinine 0.73 (0.5-1.4) mg/dL Estim Creat Clear Calc 113.3 Estimated GFR > 60 Random Glucose 90 (60-115) mg/dL Calcium 8.5 D (8.4-10.2) mg/dL Magnesium 1.9 (1.6-2.6) mg/dL Total Bilirubin 0.2 (0.0-1.0) mg/dL Direct Bilirubin < 0.2 (0.0-0.5) mg/dL AST 12 (5-37) U/L ALT 11 (0-40) U/L Alkaline Phosphatase 66 (39-117) U/L Troponin I High Sens < 3.5 (<3.5-35.0) ng/L Total Protein 6.5 (6.5-8.0) g/dL Albumin 3.7 (3.5-5.0) g/dL Urine Color Urine Appearance Urine pH (5.0-9.0) Ur Specific [place] (1.005-1.025) Urine Protein (Neg-Trace) mg/dL Urine Glucose (UA) (Negative) mg/dL Urine Ketones (Negative) mg/dL Urine Blood (Negative) Urine Nitrite (Negative) Ur Leukocyte Esterase (Negative) Stool Occult Blood (NEGATIVE) Urine Opiates Screen (Not Detect) Urine Fentanyl Screen (Not Detect) Ur Barbiturates Screen (Not Detect) Ur Phencyclidine Scrn (Not Detect) Ur Amphetamines Screen (Not Detect) U Benzodiazepines Scrn (Not Detect) Urine Cocaine Screen (Not Detect) U Marijuana (THC) Screen (Not Detect) 11/15/22 11/15/22 11/15/22 Range/Units 20:02 20:02 20:02 WBC (4.8-10.8) X10*3/uL RBC (4.60-5.80) X10*6/uL Hgb (14.0-18.0) g/dl Hct (42.0-52.0) % MCV (80.0-98.0) fL MCH (27.0-33.0) pg MCHC (31.0-36.0) g/dl RDW (11.0-16.0) % Plt Count (160-400) X10*3/uL MPV (9.4-12.4) fL Immature Gran % (Auto) (0.0-0.4) % Neut % (Auto) (45-73) % Lymph % (Auto) (20-40) % Merrick % (Auto) (2-11) % Eos % (Auto) (0-4) % Baso % (Auto) (0-2) % Lymph # (Auto) (1.2-4.9) X10*3/uL [place] # (Auto) (0.1-1.2) X10*3/uL Eos # (Auto) (0.0-0.4) X10*3/uL Baso # (Auto) (0.0-0.2) X10*3/uL Abs Immat Gran (auto) (0.00-0.03) X10*3/uL Absolute Neuts (auto) (2.0-8.3) x10*3/uL Absolute Nucleated RBC (0.0-0.012) X10*3/uL Nucleated RBC % (auto) (0.0-0.2) /100WBC D-Dimer High Sensitivty NG/ML Sodium (135-145) mmol/L Potassium (3.3-5.1) mmol/L Chloride (96-108) mmol/L Carbon Dioxide (22-29) mmol/L Anion Gap (12-20) BUN (9-16) mg/dL Creatinine (0.5-1.4) mg/dL Estim Creat Clear Calc Estimated GFR Random Glucose (60-115) mg/dL Calcium (8.4-10.2) mg/dL Magnesium (1.6-2.6) mg/dL Total Bilirubin (0.0-1.0) mg/dL Direct Bilirubin (0.0-0.5) mg/dL AST (5-37) U/L ALT (0-40) U/L Alkaline Phosphatase (39-117) U/L Troponin I High Sens (<3.5-35.0) ng/L Total Protein (6.5-8.0) g/dL Albumin (3.5-5.0) g/dL Urine Color Yellow Urine Appearance Clear Urine pH 5.5 (5.0-9.0) Ur Specific [place] 1.020 (1.005-1.025) Urine Protein Negative (Neg-Trace) mg/dL Urine Glucose (UA) Negative (Negative) mg/dL Urine Ketones Trace (Negative) mg/dL Urine Blood Negative (Negative) Urine Nitrite Negative (Negative) Ur Leukocyte Esterase Negative (Negative) Stool Occult Blood NEGATIVE (NEGATIVE) Urine Opiates Screen POSITIVE H (Not Detect) Urine Fentanyl Screen POSITIVE H (Not Detect) Ur Barbiturates Screen Not Detected (Not Detect) Ur Phencyclidine Scrn Not Detected (Not Detect) Ur Amphetamines Screen Not Detected (Not Detect) U Benzodiazepines Scrn Not Detected (Not Detect) Urine Cocaine Screen POSITIVE H (Not Detect) U Marijuana (THC) Screen POSITIVE H (Not Detect) 11/15/22 Range/Units 20:06 WBC (4.8-10.8) X10*3/uL RBC (4.60-5.80) X10*6/uL Hgb (14.0-18.0) g/dl Hct (42.0-52.0) % MCV (80.0-98.0) fL MCH (27.0-33.0) pg MCHC (31.0-36.0) g/dl RDW (11.0-16.0) % Plt Count (160-400) X10*3/uL MPV (9.4-12.4) fL Immature Gran % (Auto) (0.0-0.4) % Neut % (Auto) (45-73) % Lymph % (Auto) (20-40) % Merrick % (Auto) (2-11) % Eos % (Auto) (0-4) % Baso % (Auto) (0-2) % Lymph # (Auto) (1.2-4.9) X10*3/uL [place] # (Auto) (0.1-1.2) X10*3/uL Eos # (Auto) (0.0-0.4) X10*3/uL Baso # (Auto) (0.0-0.2) X10*3/uL Abs Immat Gran (auto) (0.00-0.03) X10*3/uL Absolute Neuts (auto) (2.0-8.3) x10*3/uL Absolute Nucleated RBC (0.0-0.012) X10*3/uL Nucleated RBC % (auto) (0.0-0.2) /100WBC D-Dimer High Sensitivty < 150 NG/ML Sodium (135-145) mmol/L Potassium (3.3-5.1) mmol/L Chloride (96-108) mmol/L Carbon Dioxide (22-29) mmol/L Anion Gap (12-20) BUN (9-16) mg/dL Creatinine (0.5-1.4) mg/dL Estim Creat Clear Calc Estimated GFR Random Glucose (60-115) mg/dL Calcium (8.4-10.2) mg/dL Magnesium (1.6-2.6) mg/dL Total Bilirubin (0.0-1.0) mg/dL Direct Bilirubin (0.0-0.5) mg/dL AST (5-37) U/L ALT (0-40) U/L Alkaline Phosphatase (39-117) U/L Troponin I High Sens (<3.5-35.0) ng/L Total Protein (6.5-8.0) g/dL Albumin (3.5-5.0) g/dL Urine Color Urine Appearance Urine pH (5.0-9.0) Ur Specific [place] (1.005-1.025) Urine Protein (Neg-Trace) mg/dL Urine Glucose (UA) (Negative) mg/dL Urine Ketones (Negative) mg/dL Urine Blood (Negative) Urine Nitrite (Negative) Ur Leukocyte Esterase (Negative) Stool Occult Blood (NEGATIVE) Urine Opiates Screen (Not Detect) Urine Fentanyl Screen (Not Detect) Ur Barbiturates Screen (Not Detect) Ur Phencyclidine Scrn (Not Detect) Ur Amphetamines Screen (Not Detect) U Benzodiazepines Scrn (Not Detect) Urine Cocaine Screen (Not Detect) U Marijuana (THC) Screen (Not Detect) <AARON Sun - Last Filed: 11/15/22 16:38> Lab Results 11/15/22 11/15/22 11/15/22 Range/Units 16:51 16:51 16:51 WBC 6.9 (4.8-10.8) X10*3/uL RBC 3.54 L D (4.60-5.80) X10*6/uL Hgb 10.6 L D (14.0-18.0) g/dl Hct 32.5 L (42.0-52.0) % MCV 91.8 D (80.0-98.0) fL MCH 29.9 (27.0-33.0) pg MCHC 32.6 (31.0-36.0) g/dl RDW 13.5 (11.0-16.0) % Plt Count 288 (160-400) X10*3/uL MPV 8.8 L (9.4-12.4) fL Immature Gran % (Auto) 0.1 (0.0-0.4) % Neut % (Auto) 55.0 (45-73) % Lymph % (Auto) 31.4 (20-40) % [place] % (Auto) 10.4 (2-11) % Eos % (Auto) 2.7 (0-4) % Baso % (Auto) 0.4 (0-2) % Lymph # (Auto) 2.2 (1.2-4.9) X10*3/uL [place] # (Auto) 0.7 (0.1-1.2) X10*3/uL Eos # (Auto) 0.2 (0.0-0.4) X10*3/uL Baso # (Auto) 0.0 (0.0-0.2) X10*3/uL Abs Immat Gran (auto) 0.01 (0.00-0.03) X10*3/uL Absolute Neuts (auto) 3.8 (2.0-8.3) x10*3/uL Absolute Nucleated RBC 0.000 (0.0-0.012) X10*3/uL Nucleated RBC % (auto) 0.0 (0.0-0.2) /100WBC D-Dimer High Sensitivty NG/ML Sodium 140 (135-145) mmol/L Potassium 3.7 (3.3-5.1) mmol/L Chloride 103 (96-108) mmol/L Carbon Dioxide 31 H (22-29) mmol/L Anion Gap 10 L (12-20) BUN 11 (9-16) mg/dL Creatinine 0.73 (0.5-1.4) mg/dL Estim Creat Clear Calc 113.3 Estimated GFR > 60 Random Glucose 90 (60-115) mg/dL Calcium 8.5 D (8.4-10.2) mg/dL Magnesium 1.9 (1.6-2.6) mg/dL Total Bilirubin 0.2 (0.0-1.0) mg/dL Direct Bilirubin < 0.2 (0.0-0.5) mg/dL AST 12 (5-37) U/L ALT 11 (0-40) U/L Alkaline Phosphatase 66 (39-117) U/L Troponin I High Sens < 3.5 (<3.5-35.0) ng/L Total Protein 6.5 (6.5-8.0) g/dL Albumin 3.7 (3.5-5.0) g/dL Urine Color Urine Appearance Urine pH (5.0-9.0) Ur Specific [place] (1.005-1.025) Urine Protein (Neg-Trace) mg/dL Urine Glucose (UA) (Negative) mg/dL Urine Ketones (Negative) mg/dL Urine Blood (Negative) Urine Nitrite (Negative) Ur Leukocyte Esterase (Negative) Stool Occult Blood (NEGATIVE) Urine Opiates Screen (Not Detect) Urine Fentanyl Screen (Not Detect) Ur Barbiturates Screen (Not Detect) Ur Phencyclidine Scrn (Not Detect) Ur Amphetamines Screen (Not Detect) U Benzodiazepines Scrn (Not Detect) Urine Cocaine Screen (Not Detect) U Marijuana (THC) Screen (Not Detect) 11/15/22 11/15/22 11/15/22 Range/Units 20:02 20:02 20:02 WBC (4.8-10.8) X10*3/uL RBC (4.60-5.80) X10*6/uL Hgb (14.0-18.0) g/dl Hct (42.0-52.0) % MCV (80.0-98.0) fL MCH (27.0-33.0) pg MCHC (31.0-36.0) g/dl RDW (11.0-16.0) % Plt Count (160-400) X10*3/uL MPV (9.4-12.4) fL Immature Gran % (Auto) (0.0-0.4) % Neut % (Auto) (45-73) % Lymph % (Auto) (20-40) % [place] % (Auto) (2-11) % Eos % (Auto) (0-4) % Baso % (Auto) (0-2) % Lymph # (Auto) (1.2-4.9) X10*3/uL [place] # (Auto) (0.1-1.2) X10*3/uL Eos # (Auto) (0.0-0.4) X10*3/uL Baso # (Auto) (0.0-0.2) X10*3/uL Abs Immat Gran (auto) (0.00-0.03) X10*3/uL Absolute Neuts (auto) (2.0-8.3) x10*3/uL Absolute Nucleated RBC (0.0-0.012) X10*3/uL Nucleated RBC % (auto) (0.0-0.2) /100WBC D-Dimer High Sensitivty NG/ML Sodium (135-145) mmol/L Potassium (3.3-5.1) mmol/L Chloride (96-108) mmol/L Carbon Dioxide (22-29) mmol/L Anion Gap (12-20) BUN (9-16) mg/dL Creatinine (0.5-1.4) mg/dL Estim Creat Clear Calc Estimated GFR Random Glucose (60-115) mg/dL Calcium (8.4-10.2) mg/dL Magnesium (1.6-2.6) mg/dL Total Bilirubin (0.0-1.0) mg/dL Direct Bilirubin (0.0-0.5) mg/dL AST (5-37) U/L ALT (0-40) U/L Alkaline Phosphatase (39-117) U/L Troponin I High Sens (<3.5-35.0) ng/L Total Protein (6.5-8.0) g/dL Albumin (3.5-5.0) g/dL Urine Color Yellow Urine Appearance Clear Urine pH 5.5 (5.0-9.0) Ur Specific [place] 1.020 (1.005-1.025) Urine Protein Negative (Neg-Trace) mg/dL Urine Glucose (UA) Negative (Negative) mg/dL Urine Ketones Trace (Negative) mg/dL Urine Blood Negative (Negative) Urine Nitrite Negative (Negative) Ur Leukocyte Esterase Negative (Negative) Stool Occult Blood NEGATIVE (NEGATIVE) Urine Opiates Screen POSITIVE H (Not Detect) Urine Fentanyl Screen POSITIVE H (Not Detect) Ur Barbiturates Screen Not Detected (Not Detect) Ur Phencyclidine Scrn Not Detected (Not Detect) Ur Amphetamines Screen Not Detected (Not Detect) U Benzodiazepines Scrn Not Detected (Not Detect) Urine Cocaine Screen POSITIVE H (Not Detect) U Marijuana (THC) Screen POSITIVE H (Not Detect) 11/15/22 Range/Units 20:06 WBC (4.8-10.8) X10*3/uL RBC (4.60-5.80) X10*6/uL Hgb (14.0-18.0) g/dl Hct (42.0-52.0) % MCV (80.0-98.0) fL MCH (27.0-33.0) pg MCHC (31.0-36.0) g/dl RDW (11.0-16.0) % Plt Count (160-400) X10*3/uL MPV (9.4-12.4) fL Immature Gran % (Auto) (0.0-0.4) % Neut % (Auto) (45-73) % Lymph % (Auto) (20-40) % [place] % (Auto) (2-11) % Eos % (Auto) (0-4) % Baso % (Auto) (0-2) % Lymph # (Auto) (1.2-4.9) X10*3/uL [place] # (Auto) (0.1-1.2) X10*3/uL Eos # (Auto) (0.0-0.4) X10*3/uL Baso # (Auto) (0.0-0.2) X10*3/uL Abs Immat Gran (auto) (0.00-0.03) X10*3/uL Absolute Neuts (auto) (2.0-8.3) x10*3/uL Absolute Nucleated RBC (0.0-0.012) X10*3/uL Nucleated RBC % (auto) (0.0-0.2) /100WBC D-Dimer High Sensitivty < 150 NG/ML Sodium (135-145) mmol/L Potassium (3.3-5.1) mmol/L Chloride (96-108) mmol/L Carbon Dioxide (22-29) mmol/L Anion Gap (12-20) BUN (9-16) mg/dL Creatinine (0.5-1.4) mg/dL Estim Creat Clear Calc Estimated GFR Random Glucose (60-115) mg/dL Calcium (8.4-10.2) mg/dL Magnesium (1.6-2.6) mg/dL Total Bilirubin (0.0-1.0) mg/dL Direct Bilirubin (0.0-0.5) mg/dL AST (5-37) U/L ALT (0-40) U/L Alkaline Phosphatase (39-117) U/L Troponin I High Sens (<3.5-35.0) ng/L Total Protein (6.5-8.0) g/dL Albumin (3.5-5.0) g/dL Urine Color Urine Appearance Urine pH (5.0-9.0) Ur Specific [place] (1.005-1.025) Urine Protein (Neg-Trace) mg/dL Urine Glucose (UA) (Negative) mg/dL Urine Ketones (Negative) mg/dL Urine Blood (Negative) Urine Nitrite (Negative) Ur Leukocyte Esterase (Negative) Stool Occult Blood (NEGATIVE) Urine Opiates Screen (Not Detect) Urine Fentanyl Screen (Not Detect) Ur Barbiturates Screen (Not Detect) Ur Phencyclidine Scrn (Not Detect) Ur Amphetamines Screen (Not Detect) U Benzodiazepines Scrn (Not Detect) Urine Cocaine Screen (Not Detect) U Marijuana (THC) Screen (Not Detect) <Marcus Mitchell MD - Last Filed: 11/15/22 22:20> Independent Interpretation I performed an independent interpretation of an: EKG <Marcus Mitchell MD - Last Filed: 11/15/22 22:20> Interpretation: Normal sinus rhythm with sinus arrhythmia, overall rate of 72. No ST el evation or depression. Normal QRS axis. <Marcus Mitchell MD - Last Filed: 0 11/15/22 22:20> Radiology Impression Discussion of test interpretation with radiology: I have reviewed the radiologist's reading. <Marcus Mitchell MD - Last Filed: 11/15/22 22:20> Radiologist Impression: CT brain: IMPRESSION: 1.? No acute intracranial pathology. 2.? No calvarial fracture. 3.? Paranasal sinus disease, as above. Chest x-ray: No acute pulmonary process Ultrasound left upper extremity: IMPRESSION: No DVT demonstrated in the left upper extremity. <Marcus Mitchell MD - Last Filed: 11/15/22 22:20> Discharge Plan Discharge Clinical Impression: Syncope, Anemia <AARON Snu - Last Filed: 11/15/22 16:38> Patient Disposition: Home, Self-Care <AARON Sun - Last Filed: 11/15/22 16:38> Instructions: Syncope (ED), Anemia (ED) <AARON Sun - Last Filed: 11/15/22 16:38> Additional Instructions: Drink plenty of fluids. Follow up with your primary care physician. Return for any new or worsened symptoms. <AARON Sun - Last Filed: 11/15/22 16:38> Prescriptions: No Action ondansetron 4 mg tablet,disintegrating 4 mg PO Q8H PRN (Reason: nausea and vomiting) Qty: 7 0RF benzonatate 100 mg capsule 100 mg PO TID PRN (Reason: cough) Qty: 30 0RF <AARON Sun - Last Filed: 11/15/22 16:38> Discharge Date/Time: 11/15/22 21:46 <AARON Sun - Last Filed: 11/15/22 16:38>
[2022-11-15 16:59] LABS: MANUAL DIFF FLAG NO
[2022-11-15 17:01] LABS: Basophils Percent Auto 0.4 % (0-2); Eosinophils Absolute Auto 0.2 X10*3/uL (0.0-0.4); Eosinophils Percent Auto 2.7 % (0-4); Hematocrit 32.5 % (42.0-52.0); Hemoglobin 10.6 g/dl (14.0-18.0); Imm Gran Abs Auto 0.01 X10*3/uL (0.00-0.03); Imm Gran Pct Auto 0.1 % (0.0-0.4); Lymphocytes Absolute Auto 2.2 X10*3/uL (1.2-4.9); Lymphocytes Percent Auto 31.4 % (20-40); Mean Corpuscular HGB Conc 32.6 g/dl (31.0-36.0); Mean Corpuscular Hemoglobin 29.9 pg (27.0-33.0); Mean Corpuscular Volume 91.8 fL (80.0-98.0); Mean Platelet Volume 8.8 fL (9.4-12.4); Monocytes Absolute Auto 0.7 X10*3/uL (0.1-1.2); Monocytes Percent Auto 10.4 % (2-11); Neutrophils Absolute Auto 3.8 x10*3/uL (2.0-8.3); Platelet Count 288 X10*3/uL (160-400); Red Blood Count 3.54 X10*6/uL (4.60-5.80); Red Cell Distribution Width 13.5 % (11.0-16.0); White Blood Count 6.9 X10*3/uL (4.8-10.8)
[2022-11-15 17:16] LABS: Alanine Aminotransferase 11 U/L (0-40); Albumin Level 3.7 g/dL (3.5-5.0); Alkaline Phosphatase 66 U/L (39-117); Anion Gap 10 (12-20); Aspartate Amino Transferase 12 U/L (5-37); Bilirubin Direct < 0.2 mg/dL (0.0-0.5); Bilirubin Total 0.2 mg/dL (0.0-1.0); Blood Urea Nitrogen 11 mg/dL (9-16); Calcium 8.5 mg/dL (8.4-10.2); Carbon Dioxide 31 mmol/L (22-29); Chloride 103 mmol/L (96-108); Creatinine Clr Calc Pharmacy 113.3; Estimated Glomerular Filt Rate > 60; Glucose Random 90 mg/dL (60-115); Magnesium 1.9 mg/dL (1.6-2.6); Potassium 3.7 mmol/L (3.3-5.1); Sodium 140 mmol/L (135-145); Total Protein 6.5 g/dL (6.5-8.0)
[2022-11-15 17:37] LABS: Troponin-I High Sensitivity < 3.5 ng/L (<3.5-35.0)
--- NOTE | 2022-11-15 19:25 | PC.NURSE ---
this rn assumed care of pt @ 1900. pt provided with urine collection cup for when able to provide a urine. dr zamorano at bedside at this time
[2022-11-15 19:51] VITALS: BP 122/73; PULSE 73; RESP 16; O2SAT 99
[2022-11-15 20:11] LABS: OBS Int Ctl Valid YES; OBS1 NEGATIVE (NEGATIVE)
[2022-11-15 20:12] LABS: Appearance Urine Clear; Color Urine Yellow; Glucose Urine UA Negative (Negative); Leukocyte Esterase Urine Negative (Negative); Nitrite Urine Negative (Negative); PH 5.5 (5.0-9.0); Urine Blood Negative (Negative); Urine Ketones Trace mg/dL (Negative); Urine Protein Negative (Neg-Trace)
[2022-11-15 20:19] LABS: D Dimer High Sensitivity < 150 NG/ML
[2022-11-15 20:27] LABS: Amphetamine Screen Urine Not Detected (Not Detect); Barbiturates, Urine Not Detected (Not Detect); Benzodiazepines Screen Urine Not Detected (Not Detect); Cannabinoid Screen Urine POSITIVE (Not Detect); Cocaine Screen Urine POSITIVE (Not Detect); Fentanyl, urine POSITIVE (Not Detect); Opiate Screen Urine POSITIVE (Not Detect); Phencyclidine Screen Urine Not Detected (Not Detect)
--- NOTE | 2022-11-15 20:43 | PC.NURSE ---
pt resting on back on stretcher. US tech performing scan at bedside at this time
[2022-11-15 21:20] VITALS: BP 135/72; PULSE 71; RESP 15; TEMP 36.5; O2SAT 95
[2022-11-15 21:38] VITALS: O2SAT 95
--- NOTE | 2022-11-15 21:44 | PC.NURSE ---
pt ambulatory at time of discharge. pt denies discomfort with standing. pt provided with discharge packet at this time. skin pwd. pt verbalized understanding of discharge plan
== END 2022-11-15 21:46 | disposition home or self-care (01) ==
PROVIDERS: Physician Assistant; Emergency Provider Emergency Medicine; PCP Internal Medicine
DX: R55 Syncope and collapse (principal); D64.9 Anemia, unspecified; M79.642 Pain in left hand; M79.89 Other specified soft tissue disorders; R20.0 Anesthesia of skin; F12.90 Cannabis use, unspecified, uncomplicated
CPT/HCPCS: 36415; 70450; 71045; 80048; 80076; 80307; 81003; 82272; 83735; 84484; 85025; 85379; 93005; 93971; 99284; 99285

== ENCOUNTER 2022-11-17 09:30 | Outpatient (REF) | payer OTHER, SELFPAY ==
--- NOTE | ~2022-11-17 | XR_ITS ---
EXAMINATION: BILATERAL HAND CLINICAL INFORMATION: Swelling in both hands. COMPARISON: None TECHNIQUE: 3 views each hand. FINDINGS: Right hand: No visible acute fracture, dislocation or subluxation seen. The soft tissues are unremarkable.. Left hand: There is no visible acute fracture, dislocation or subluxation. The soft tissues are unremarkable. XR/XR hand LT min 3V IMPRESSION: Unremarkable bilateral hand exam.
--- NOTE | ~2022-11-17 | XR_ITS ---
EXAMINATION: BILATERAL HAND CLINICAL INFORMATION: Swelling in both hands. COMPARISON: None TECHNIQUE: 3 views each hand. FINDINGS: Right hand: No visible acute fracture, dislocation or subluxation seen. The soft tissues are unremarkable.. Left hand: There is no visible acute fracture, dislocation or subluxation. The soft tissues are unremarkable. XR/XR hand RT min 3V IMPRESSION: Unremarkable bilateral hand exam.
[2022-11-17 09:41] LABS: MANUAL DIFF FLAG NO
[2022-11-17 10:34] LABS: Basophils Percent Auto 0.7 % (0-2); Eosinophils Absolute Auto 0.2 X10*3/uL (0.0-0.4); Eosinophils Percent Auto 3.6 % (0-4); Hematocrit 36.2 % (42.0-52.0); Hemoglobin 11.6 g/dl (14.0-18.0); Imm Gran Abs Auto 0.01 X10*3/uL (0.00-0.03); Imm Gran Pct Auto 0.2 % (0.0-0.4); Mean Corpuscular Hemoglobin 29.7 pg (27.0-33.0); Mean Corpuscular Volume 92.8 fL (80.0-98.0); Monocytes Absolute Auto 0.5 X10*3/uL (0.1-1.2); Monocytes Percent Auto 8.5 % (2-11); Neutrophils Absolute Auto 3.3 x10*3/uL (2.0-8.3); Platelet Count 358 X10*3/uL (160-400); Red Cell Distribution Width 13.4 % (11.0-16.0); White Blood Count 6.1 X10*3/uL (4.8-10.8)
[2022-11-17 11:19] LABS: Erythrocyte Sedimentation Rate 36 MM/HR (0-15)
[2022-11-17 11:30] LABS: Ferritin 141 ng/mL (20-250)
[2022-11-17 11:31] LABS: C Reactive Protein 0.53 mg/dL (< or = 0.50); Iron 51 mcg/dL (45-160); Percent Iron Saturation 26 % (15-50); Rheumatoid Factor < 13.0 IU/mL (<15.0); Total Iron Binding Capacity 199 mcg/dL (228-428); Unsaturated Iron Binding 148 ug/dL
[2022-11-17 11:47] LABS: Folate 6.5 ng/mL (> or = 4.0); Vitamin B12 1113 pg/mL (200-900)
== END 2022-11-17 09:31 | disposition home or self-care (01) ==
LOC: HO.LAB 09:30
PROVIDERS: PCP Internal Medicine; Visit Provider Internal Medicine
DX: L03.818 Cellulitis of other sites (principal)
CPT/HCPCS: 36415; 73130; 82607; 82728; 82746; 83540; 85025; 85652; 86140; 86431

== ENCOUNTER → 2022-12-01 13:03 | Outpatient (REF) | payer OTHER, SELFPAY ==
--- NOTE | 2022-12-01 13:07 | CA_ITS ---
Transthoracic Echocardiogram Patient (Last, First, Middle): Landon Sharp A Gender: Male Date of : 1985 Age: 37 Procedure Date: 12/01/2022 Procedure Type: Transthoracic Echocardiogram Location: OP Height: 182.88 cm Weight: 83.92 kg BSA: 2.06 m2 Heart Rate: bpm BP: 124 / 80 mmHg Setter Out: Referring MD: Harley Abad DO Vp Product Management: Conrad Ruiz MD Symptoms: R60.9 EDEMA Study Quality: Good ECG Rhythm: Sinus Conclusions: - Normal study Findings Left Ventricle Normal left ventricular size, thickness, and systolic function. The visually estimated ejection fraction is between 60-65%. Diastolic function is normal for age. Right Ventricle Normal right ventricular cavity size and systolic function. Atria Both atria are normal in size. There is no evidence of interatrial shunt. Aortic Valve Normal aortic valve structure and function. There is no aortic valve stenosis. There is no aortic valve regurgitation. Mitral Valve Normal mitral valve structure and function. There is trace mitral valve regurgitation. There is no mitral valve stenosis. Pulmonic Valve The pulmonic valve is likely normal. Tricuspid Valve Normal tricuspid valve structure. There is trace tricuspid valve regurgitation. The right ventricular systolic pressure is normal. The right ventricular systolic pressure is 28 mmHg. Normal right atrial pressure. There is no evidence of pulmonary hypertension. Great Vessels All visible segments of the aorta are normal in size. The visualized portions of the pulmonary artery and branches are normal. Venous The inferior vena cava is normal in size and collapses greater than 50% with inspiration. Pericardium/Pleural There is no evidence of pericardial effusion. Prior Study Comparison No prior study available for comparison. Measurements 2D Linear Measurements IVSd: 0.92 0.6-0.9/0.6-1.0 cm LVIDd: 5.11 3.9-5.3/4.2-5.9 cm LVIDd Index: 2.48 2.4-3.2/2.2-3.1 cm/m2 LVIDs: 3.14 2.0-3.6 cm LVPWd: 0.99 0.7-1.1 cm Ao Root: 3.40 2.1-3.5 cm LA Diam: 3.70 2.7-3.8/3.0-4.0 cm LAIDs Index: 1.80 1.5-2.3 cm/m2 LV Mass: 220.25 67-162/88-224 g LV Mass Index: 106.92 43-95/49-115 g/m2 LVOT Diam: 2.30 3.0+(-)1.3 cm Mitral Valve MV Pk E: 0.64 MV PK A: 0.49 MV Decel Time: 236.00 E/A: 1.30 E'Lateral: 12.70 E'Medial: 11.30 E/E' Med: 5.70 E/E' Lat: 5.10 Aortic Valve AoV Pk Nico: 1.45 AoV Mn Nico: 1.00 AoV VTI: 0.32 AoV Pk Grad: 8.00 Aov Mn Grad: 5.00 MARCUS Cont.VTI: 2.98 LVOT LVOT Pk Nico: 1.13 LVOT Mn Nico: 0.71 LVOT VTI: 0.23 LVOT Pk Grad: 5.00 LVOT Mn Grad: 2.00 LVOT Diam: 2.30 LVOT Area: 4.15 Diastolic Function MV Pk E: 0.64 MV Pk A: 0.49 E/A: 1.30 E'Medial: 11.30 E/E' Med: 5.70 E' Laterial: 12.70 E/E' Lat: 5.10 Right Ventricle TAPSE (mm): 26.00 TVS' Nico: 15.00 Tricuspid Valve TR Pk Nico: 2.50 TR Pk Grad: 25.00 RA Press: 3.00 RVSP: 28.00 Great Vessels Aorta Ao Root-2D: 3.40 2.0-3.7 cm Ao Asc: 3.30 2.1-3.4 cm Pulmonary Valve PV Pk Nico: 0.98 Peak PV Grad: 4.00 Updated in Other Vendor System with Status of Final Conrad Ruiz MD electronically signed on 12/02/2022 4:50:45 PM with status of Final
== END ==
LOC: HO.CARD 13:03
PROVIDERS: PCP Internal Medicine; Visit Provider Internal Medicine
DX: R60.9 Edema, unspecified (principal)
CPT/HCPCS: 93306

== ENCOUNTER 2023-01-03 15:45 | Emergency (ER) | payer OTHER, SELFPAY ==
--- NOTE | ~2023-01-03 | CT_ITS ---
EXAMINATION: CT ABDOMEN AND PELVIS WITH CONTRAST CLINICAL INFORMATION: Abdominal pain and diarrhea COMPARISON: CT abdomen pelvis 06/11/2018 TECHNIQUE: Multidetector volumetric images were obtained from the superior aspect of the liver through the pubic symphysis following administration 85 mL of Omnipaque 350 intravenous contrast. Sagittal and coronal reformatted images were obtained on the technologist's workstation. Oral contrast: No This CT examination was performed using dose optimization techniques as appropriate, variously including the following: *Automated exposure control *Adjustment of mA and/or kV according to patient size (this includes techniques or standardized protocols for targeted exams where dose is matched to indication/reason for exam; i.e. extremities or head) *Use of iterative reconstruction technique DLP: 492 mGy-cm FINDINGS: LUNG BASES: The visualized lung bases are unremarkable. There is a 3 mm left lower lobe pleural-based nodule is unchanged when compared to 2018. LIVER, GALLBLADDER, AND BILIARY TREE: The liver is normal in size, shape, and attenuation. No focal hepatic lesion or biliary ductal dilatation is present. The gallbladder is is not present. PANCREAS: Unremarkable. SPLEEN: Unremarkable. ADRENAL GLANDS: Unremarkable. KIDNEYS AND URETERS: The kidneys are normal in size, shape, and attenuation. Tiny subcentimeter cyst noted in the lower pole of the right kidney which needs no additional imaging or follow-up. No solid renal masses. No hydronephrosis, hydroureter, or calculi seen. No perinephric stranding. BLADDER: Nearly empty but unremarkable. GASTROINTESTINAL TRACT: The small and large bowel are unremarkable aside from a few scattered colonic diverticula without diverticulitis. The appendix is unremarkable. ABDOMINAL WALL: No significant hernia is appreciated. LYMPH NODES: No retroperitoneal lymphadenopathy. VASCULAR: Unremarkable. PELVIC VISCERA: The prostate and seminal vesicles are unremarkable. OSSEOUS STRUCTURES: Unremarkable. CT/CT abdomen pelvis w IV con IMPRESSION: No significant abnormality. A cause for the patient's abdominal pain and diarrhea has not been found. Fleischner guidelines were followed.
[2023-01-03 15:53] VITALS: BP 120/72; PULSE 95; RESP 18; TEMP 36.6; O2SAT 98; BMI 28.5
--- NOTE | 2023-01-03 15:53 | ED.ABDPAIN ---
HPI - Abdominal Pain General Chief Complaint: Nausea/Vomiting/Diarrhea Stated Complaint: dehydration,vomiting Time Seen by Provider: 01/03/23 19:39 Related Data Previous Rx's Medication Instructions Recorded benzonatate 100 mg capsule 100 mg PO TID PRN cough #30 caps 11/11/22 ondansetron 4 mg disintegrating 4 mg PO Q8H PRN nausea and 11/11/22 tablet vomiting #7 tabs ondansetron 4 mg disintegrating 4 mg PO BEDTIME PRN nausea and 01/04/23 tablet vomiting 4 days #10 tabs Allergies Allergy/AdvReac Type Severity Reaction Status Date / Time No Known Allergies Allergy Verified 01/03/23 15:53 PMFSH Past Medical History Medical History Asthma Social History Social History Substance Use Type: Marijuana Advance Directives: No Advance Directives Information Provided: Yes Physical Exam ED Vital Signs: BMI result Body Mass Index 28.5 Course Course Course Narrative: RME-15:53PM - 37yoM presenting to the ER with complaints of nausea/vomiting, generalized abdominal pain and diarrhea for the past 2 days worse today. Reports unable to eat for the past 5 days. Even throwing up water. 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 Reports he did have a fever which has resolved. Also reports a productive cough. Denies smoking history. Denies any sore throat, nasal congestion, chest pain or shortness of breath, urinary symptoms or any other symptoms complaints or concerns at this time. Plan: Labs, UA, covid/rsv/flu swab ordered. Pt sent back to Waiting room to be seen in ED Medical Decision Making Lab Data 01/03/23 16:06 01/03/23 16:06 Labs: Lab Results 01/03/23 01/03/23 01/03/23 Range/Units 16:06 16:06 16:06 WBC 6.6 (4.8-10.8) X10*3/uL RBC 5.17 D (4.60-5.80) X10*6/uL Hgb 15.3 D (14.0-18.0) g/dl Hct 44.9 D (42.0-52.0) % MCV 86.8 (80.0-98.0) fL MCH 29.6 (27.0-33.0) pg MCHC 34.1 (31.0-36.0) g/dl RDW 13.3 (11.0-16.0) % Plt Count 314 (160-400) X10*3/uL MPV 9.1 L (9.4-12.4) fL Immature Gran % (Auto) 0.2 (0.0-0.4) % Neut % (Auto) 54.9 (45-73) % Lymph % (Auto) 34.9 (20-40) % [place] % (Auto) 9.5 (2-11) % Eos % (Auto) 0.2 (0-4) % Baso % (Auto) 0.3 (0-2) % Lymph # (Auto) 2.3 (1.2-4.9) X10*3/uL [place] # (Auto) 0.6 (0.1-1.2) X10*3/uL Eos # (Auto) 0.0 (0.0-0.4) X10*3/uL Baso # (Auto) 0.0 (0.0-0.2) X10*3/uL Abs Immat Gran (auto) 0.01 (0.00-0.03) X10*3/uL Absolute Neuts (auto) 3.7 (2.0-8.3) x10*3/uL Absolute Nucleated RBC 0.000 (0.0-0.012) X10*3/uL Nucleated RBC % (auto) 0.0 (0.0-0.2) /100WBC Smear Tech's Comments VERIFIED PT 14.0 H (10.0-13.1) SEC INR 1.2 H (0.9-1.1) Sodium 139 (135-145) mmol/L Potassium 3.4 (3.3-5.1) mmol/L Chloride 105 (96-108) mmol/L Carbon Dioxide 22 (22-29) mmol/L Anion Gap 15 (12-20) BUN 19 H (9-16) mg/dL Creatinine 1.01 (0.5-1.4) mg/dL Estim Creat Clear Calc 117.5 Estimated GFR > 60 Random Glucose 110 (60-115) mg/dL Calcium 9.4 D (8.4-10.2) mg/dL Magnesium 2.1 (1.6-2.6) mg/dL Total Bilirubin 0.6 (0.0-1.0) mg/dL AST 14 (5-37) U/L ALT 12 (0-40) U/L Alkaline Phosphatase 75 (39-117) U/L Total Protein 8.5 H (6.5-8.0) g/dL Albumin 4.6 (3.5-5.0) g/dL Lipase 12 (8-78) U/L Ethyl Alcohol mg/dL Influenza Type A (PCR) (Negative) Influenza Type B (PCR) (Negative) RSV RNA Qual (PCR) (Negative) SARS-CoV-2 RNA (RT-PCR) (Negative) 01/03/23 01/03/23 Range/Units 16:06 16:06 WBC (4.8-10.8) X10*3/uL RBC (4.60-5.80) X10*6/uL Hgb (14.0-18.0) g/dl Hct (42.0-52.0) % MCV (80.0-98.0) fL MCH (27.0-33.0) pg MCHC (31.0-36.0) g/dl RDW (11.0-16.0) % Plt Count (160-400) X10*3/uL MPV (9.4-12.4) fL Immature Gran % (Auto) (0.0-0.4) % Neut % (Auto) (45-73) % Lymph % (Auto) (20-40) % [place] % (Auto) (2-11) % Eos % (Auto) (0-4) % Baso % (Auto) (0-2) % Lymph # (Auto) (1.2-4.9) X10*3/uL [place] # (Auto) (0.1-1.2) X10*3/uL Eos # (Auto) (0.0-0.4) X10*3/uL Baso # (Auto) (0.0-0.2) X10*3/uL Abs Immat Gran (auto) (0.00-0.03) X10*3/uL Absolute Neuts (auto) (2.0-8.3) x10*3/uL Absolute Nucleated RBC (0.0-0.012) X10*3/uL Nucleated RBC % (auto) (0.0-0.2) /100WBC Smear Tech's Comments PT (10.0-13.1) SEC INR (0.9-1.1) Sodium (135-145) mmol/L Potassium (3.3-5.1) mmol/L Chloride (96-108) mmol/L Carbon Dioxide (22-29) mmol/L Anion Gap (12-20) BUN (9-16) mg/dL Creatinine (0.5-1.4) mg/dL Estim Creat Clear Calc Estimated GFR Random Glucose (60-115) mg/dL Calcium (8.4-10.2) mg/dL Magnesium (1.6-2.6) mg/dL Total Bilirubin (0.0-1.0) mg/dL AST (5-37) U/L ALT (0-40) U/L Alkaline Phosphatase (39-117) U/L Total Protein (6.5-8.0) g/dL Albumin (3.5-5.0) g/dL Lipase (8-78) U/L Ethyl Alcohol < 10 mg/dL Influenza Type A (PCR) NEGATIVE (Negative) Influenza Type B (PCR) NEGATIVE (Negative) RSV RNA Qual (PCR) NEGATIVE (Negative) SARS-CoV-2 RNA (RT-PCR) NEGATIVE (Negative) Medications Administered Discontinued Medications Generic Name Dose Route Start Last Admin Trade Name Rickq PRN Reason Stop Dose Admin Sodium Chloride 1,000 mls @ 999 mls/hr 01/03/23 21:30 01/04/23 00:27 Ns IV 01/03/23 22:30 Infused .Q1H1M MICHELLE Infusion Sodium Chloride 1,000 mls @ 999 mls/hr 01/03/23 21:30 01/04/23 00:27 Ns IV 01/03/23 22:30 Infused .Q1H1M MICHELLE Infusion Iohexol 85 ml 01/03/23 23:14 01/03/23 23:15 Iohexol 350 Mg/Ml 100 Ml Infus..Btl IV 01/03/23 23:15 85 ml ONCE ONE Administration Discharge Plan Discharge Clinical Impression: Gastroenteritis Patient Disposition: Home, Self-Care Instructions: Gastroenteritis (ED) Prescriptions: New ondansetron 4 mg tablet,disintegrating 4 mg PO BEDTIME PRN (Reason: nausea and vomiting) 4 Days Qty: 10 0RF No Action ondansetron 4 mg tablet,disintegrating 4 mg PO Q8H PRN (Reason: nausea and vomiting) Qty: 7 0RF benzonatate 100 mg capsule 100 mg PO TID PRN (Reason: cough) Qty: 30 0RF Referrals: Harley Abad DO [Primary Care Provider] - Interventions: ED Discharge Assessment Last Done: 01/04/23 00:37 Discharge Date/Time: 01/04/23 00:37
[2023-01-03 16:15] LABS: Basophils Percent Auto 0.3 % (0-2); Hemoglobin 15.3 g/dl (14.0-18.0); SCAN SMEAR FLAG 1
[2023-01-03 16:18] LABS: INTERNATIONAL NORM RATIO 1.2 (0.9-1.1)
[2023-01-03 16:28] LABS: Ethanol < 10 mg/dL
[2023-01-03 16:30] LABS: Alanine Aminotransferase 12 U/L (0-40); Albumin Level 4.6 g/dL (3.5-5.0); Alkaline Phosphatase 75 U/L (39-117); Anion Gap 15 (12-20); Aspartate Amino Transferase 14 U/L (5-37); Bilirubin Total 0.6 mg/dL (0.0-1.0); Blood Urea Nitrogen 19 mg/dL (9-16); Calcium 9.4 mg/dL (8.4-10.2); Carbon Dioxide 22 mmol/L (22-29); Chloride 105 mmol/L (96-108); Creatinine Clr Calc Pharmacy 117.5; Estimated Glomerular Filt Rate > 60; Glucose Random 110 mg/dL (60-115); Lipase 12 U/L (8-78); Magnesium 2.1 mg/dL (1.6-2.6); Potassium 3.4 mmol/L (3.3-5.1); Sodium 139 mmol/L (135-145); Total Protein 8.5 g/dL (6.5-8.0)
[2023-01-03 16:39] LABS: Eosinophils Percent Auto 0.2 % (0-4); Hematocrit 44.9 % (42.0-52.0); Imm Gran Abs Auto 0.01 X10*3/uL (0.00-0.03); Imm Gran Pct Auto 0.2 % (0.0-0.4); Lymphocytes Absolute Auto 2.3 X10*3/uL (1.2-4.9); Lymphocytes Percent Auto 34.9 % (20-40); MANUAL DIFF FLAG SCAN; Mean Corpuscular HGB Conc 34.1 g/dl (31.0-36.0); Mean Corpuscular Hemoglobin 29.6 pg (27.0-33.0); Mean Corpuscular Volume 86.8 fL (80.0-98.0); Mean Platelet Volume 9.1 fL (9.4-12.4); Monocytes Absolute Auto 0.6 X10*3/uL (0.1-1.2); Monocytes Percent Auto 9.5 % (2-11); Neutrophils Absolute Auto 3.7 x10*3/uL (2.0-8.3); Neutrophils Percent Auto 54.9 % (45-73); Platelet Count 314 X10*3/uL (160-400); Red Blood Count 5.17 X10*6/uL (4.60-5.80); Red Cell Distribution Width 13.3 % (11.0-16.0); White Blood Count 6.6 X10*3/uL (4.8-10.8)
[2023-01-03 16:43] LABS: SLIDE REVIEW VERIFIED
[2023-01-03 16:51] LABS: Influenza A PCR NEGATIVE (Negative); Influenza B PCR NEGATIVE (Negative); Resp Syncy Virus RNA Qual PCR NEGATIVE (Negative); SARS COV2 PCR INHOUSE NEGATIVE (Negative)
--- NOTE | 2023-01-03 19:27 | PC.NURSE ---
AO x4. Pt reports while in the waiting bathroom feeling dizzy and lightheaded, falling and striking left side of head. No redness or swelling noted at this time. VSS. Pending physician evaluation. Will continue to monitor.
[2023-01-03 19:30] VITALS: BP 137/90; PULSE 89; RESP 14; TEMP 36.5; O2SAT 100
[2023-01-03 19:52] VITALS: BP 143/97; PULSE 82; RESP 17; TEMP 36.7; O2SAT 97
--- NOTE | 2023-01-03 19:52 | MHC.EDTECH ---
pt has a commode at the bedside he refused to do bedpan call french is at his side
--- NOTE | 2023-01-03 20:01 | MHC.EDTECH ---
pt used commode had large amount watery stool, and he vomited nuse aware
[2023-01-03] MEDS: 0.9 % Sodium Chloride 1,000 ML 999 ML IV ×2 (21:53→21:54)
[2023-01-03 22:00] VITALS: BP 137/90; PULSE 79; RESP 18; TEMP 36.7; O2SAT 94
--- NOTE | 2023-01-03 22:30 | MHC.EDTECH ---
pt vitals were taken and ice chips and saltines were also given to see if he can hold it down, he did eat a few crackers he said but did a little better with the ice chips
[2023-01-03] MEDS: iohexoL 350 MG/ML 100 ML INFUS..BTL 85 ML IV (23:15)
--- NOTE | 2023-01-04 00:18 | ED_ITS ---
HPI - Nausea/Vomiting/Diarrhea General Chief complaint: Nausea/Vomiting/Diarrhea Stated complaint: dehydration,vomiting Time Seen by Provider: 01/03/23 19:39 History of Present Illness HPI Narrative: Patient is a 37-year-old male presents today with having nausea vomiting diarrhea generalized malaise decreased p.o. intake. Vomiting mostly food. Diarrhea is brown in color. Cramping is diffuse over the entire abdomen. No history of abdominal surgery in the past. Patient unable to keep down any fluids. No recent antibiotics. No travel history. Related Data Previous Rx's Medication Instructions Recorded benzonatate 100 mg capsule 100 mg PO TID PRN cough #30 caps 11/11/22 ondansetron 4 mg disintegrating 4 mg PO Q8H PRN nausea and 11/11/22 tablet vomiting #7 tabs ondansetron 4 mg disintegrating 4 mg PO BEDTIME PRN nausea and 01/04/23 tablet vomiting 4 days #10 tabs Allergies Allergy/AdvReac Type Severity Reaction Status Date / Time No Known Allergies Allergy Verified 01/03/23 15:53 Review of Systems Review of Systems: Positive abdominal, nausea vomiting, diarrhea Yes all other systems are reviewed and are negative [facility] Past Medical History Attestation statement: The following information was validated with the patient. Medical History Asthma Social History Social History Substance Use Type: Marijuana Advance Directives: No Advance Directives Information Provided: Yes Physical Exam Vital Signs: Vital Signs: Last Vital Signs Temp 98.0 F 01/03/23 22:00 Pulse 79 01/03/23 22:00 Resp 18 01/03/23 22:00 BP 137/90 H 01/03/23 22:00 Pulse Ox 94 01/03/23 22:00 O2 Del Method 01/03/23 22:00 BMI result Body Mass Index 28.5 Appearance: Alert. Oriented X3. No acute distress. Eyes: Pupils equal, round and reactive to light. ENT: Pharynx normal. Neck: Normal inspection. Neck supple. No lymph nodes noted. No crepitus CVS: Normal heart rate and rhythm. Pulses normal. Normal S1 and S2 Respiratory: No respiratory distress. Breath sounds normal. No Wheezing. No rales Abdomen: Soft and nontender. No rigidity. No distention. good BS x4 Skin: Skin warm and dry. Normal skin color. Normal skin turgor. Extremities: No lower extremity edema. Neurovascular intact to all extremities. No Lacerations. No Rash Neuro: Oriented X 3. No motor deficit. No sensory deficit. Moving all ext ermities. No slurred speech Medications Administered Discontinued Medications Generic Name Dose Route Start Last Admin Trade Name Rickq PRN Reason Stop Dose Admin Sodium Chloride 1,000 mls @ 999 mls/hr 01/03/23 21:30 01/03/23 21:53 Ns IV 01/03/23 22:30 999 mls/hr .Q1H1M MICHELLE Administration Sodium Chloride 1,000 mls @ 999 mls/hr 01/03/23 21:30 01/03/23 21:54 Ns IV 01/03/23 22:30 999 mls/hr .Q1H1M MICHELLE Administration Iohexol 85 ml 01/03/23 23:14 01/03/23 23:15 Iohexol 350 Mg/Ml 100 Ml Infus..Btl IV 01/03/23 23:15 85 ml ONCE ONE Administration Medical Decision Making Medical Decision Making [facility] Narrative: Positive nausea vomiting diarrhea generalized malaise. Electrolytes are unr emarkable. Symptoms consistent with having gastroenteritis. CT scan of the abdomen pelvis ordered and rule out appendicitis, abscess, perforation, diverticulitis. CT scan of the abdomen was negative for any acute evidence of obstruction, diverticulitis, abscess. Patient's repeat abdominal exam is soft nontender. Will discharge patient home. Zofran for nausea in Differential Diagnosis Differential Diagnoses: The differential diagnosis associated with the presentation includes Appendicitis, diverticulitis, kidney stone, obstruction, abscess perforation, COVID/flu Lab Data [facility] Lab Attestation statement: I reviewed the patient's lab results. 01/03/23 16:06 01/03/23 16:06 Labs: Lab Results 01/03/23 01/03/23 01/03/23 Range/Units 16:06 16:06 16:06 WBC 6.6 (4.8-10.8) X10*3/uL RBC 5.17 D (4.60-5.80) X10*6/uL Hgb 15.3 D (14.0-18.0) g/dl Hct 44.9 D (42.0-52.0) % MCV 86.8 (80.0-98.0) fL MCH 29.6 (27.0-33.0) pg MCHC 34.1 (31.0-36.0) g/dl RDW 13.3 (11.0-16.0) % Plt Count 314 (160-400) X10*3/uL MPV 9.1 L (9.4-12.4) fL Immature Gran % (Auto) 0.2 (0.0-0.4) % Neut % (Auto) 54.9 (45-73) % Lymph % (Auto) 34.9 (20-40) % [place] % (Auto) 9.5 (2-11) % Eos % (Auto) 0.2 (0-4) % Baso % (Auto) 0.3 (0-2) % Lymph # (Auto) 2.3 (1.2-4.9) X10*3/uL [place] # (Auto) 0.6 (0.1-1.2) X10*3/uL Eos # (Auto) 0.0 (0.0-0.4) X10*3/uL Baso # (Auto) 0.0 (0.0-0.2) X10*3/uL Abs Immat Gran (auto) 0.01 (0.00-0.03) X10*3/uL Absolute Neuts (auto) 3.7 (2.0-8.3) x10*3/uL Absolute Nucleated RBC 0.000 (0.0-0.012) X10*3/uL Nucleated RBC % (auto) 0.0 (0.0-0.2) /100WBC Smear Tech's Comments VERIFIED PT 14.0 H (10.0-13.1) SEC INR 1.2 H (0.9-1.1) Sodium 139 (135-145) mmol/L Potassium 3.4 (3.3-5.1) mmol/L Chloride 105 (96-108) mmol/L Carbon Dioxide 22 (22-29) mmol/L Anion Gap 15 (12-20) BUN 19 H (9-16) mg/dL Creatinine 1.01 (0.5-1.4) mg/dL Estim Creat Clear Calc 117.5 Estimated GFR > 60 Random Glucose 110 (60-115) mg/dL Calcium 9.4 D (8.4-10.2) mg/dL Magnesium 2.1 (1.6-2.6) mg/dL Total Bilirubin 0.6 (0.0-1.0) mg/dL AST 14 (5-37) U/L ALT 12 (0-40) U/L Alkaline Phosphatase 75 (39-117) U/L Total Protein 8.5 H (6.5-8.0) g/dL Albumin 4.6 (3.5-5.0) g/dL Lipase 12 (8-78) U/L Ethyl Alcohol mg/dL Influenza Type A (PCR) (Negative) Influenza Type B (PCR) (Negative) RSV RNA Qual (PCR) (Negative) SARS-CoV-2 RNA (RT-PCR) (Negative) 01/03/23 01/03/23 Range/Units 16:06 16:06 WBC (4.8-10.8) X10*3/uL RBC (4.60-5.80) X10*6/uL Hgb (14.0-18.0) g/dl Hct (42.0-52.0) % MCV (80.0-98.0) fL MCH (27.0-33.0) pg MCHC (31.0-36.0) g/dl RDW (11.0-16.0) % Plt Count (160-400) X10*3/uL MPV (9.4-12.4) fL Immature Gran % (Auto) (0.0-0.4) % Neut % (Auto) (45-73) % Lymph % (Auto) (20-40) % [place] % (Auto) (2-11) % Eos % (Auto) (0-4) % Baso % (Auto) (0-2) % Lymph # (Auto) (1.2-4.9) X10*3/uL [place] # (Auto) (0.1-1.2) X10*3/uL Eos # (Auto) (0.0-0.4) X10*3/uL Baso # (Auto) (0.0-0.2) X10*3/uL Abs Immat Gran (auto) (0.00-0.03) X10*3/uL Absolute Neuts (auto) (2.0-8.3) x10*3/uL Absolute Nucleated RBC (0.0-0.012) X10*3/uL Nucleated RBC % (auto) (0.0-0.2) /100WBC Smear Tech's Comments PT (10.0-13.1) SEC INR (0.9-1.1) Sodium (135-145) mmol/L Potassium (3.3-5.1) mmol/L Chloride (96-108) mmol/L Carbon Dioxide (22-29) mmol/L Anion Gap (12-20) BUN (9-16) mg/dL Creatinine (0.5-1.4) mg/dL Estim Creat Clear Calc Estimated GFR Random Glucose (60-115) mg/dL Calcium (8.4-10.2) mg/dL Magnesium (1.6-2.6) mg/dL Total Bilirubin (0.0-1.0) mg/dL AST (5-37) U/L ALT (0-40) U/L Alkaline Phosphatase (39-117) U/L Total Protein (6.5-8.0) g/dL Albumin (3.5-5.0) g/dL Lipase (8-78) U/L Ethyl Alcohol < 10 mg/dL Influenza Type A (PCR) NEGATIVE (Negative) Influenza Type B (PCR) NEGATIVE (Negative) RSV RNA Qual (PCR) NEGATIVE (Negative) SARS-CoV-2 RNA (RT-PCR) NEGATIVE (Negative) Discharge Plan Discharge Clinical Impression: Gastroenteritis Patient Disposition: Home, Self-Care Instructions: Gastroenteritis (ED) Prescriptions: New ondansetron 4 mg tablet,disintegrating 4 mg PO BEDTIME PRN (Reason: nausea and vomiting) 4 Days Qty: 10 0RF No Action ondansetron 4 mg tablet,disintegrating 4 mg PO Q8H PRN (Reason: nausea and vomiting) Qty: 7 0RF benzonatate 100 mg capsule 100 mg PO TID PRN (Reason: cough) Qty: 30 0RF Referrals: Harley Abad DO [Primary Care Provider] -
[2023-01-04 00:32] VITALS: BP 136/91; PULSE 64; RESP 14; TEMP 36.6; O2SAT 98
--- NOTE | 2023-01-04 00:36 | PC.NURSE ---
IV line removed. Pt tolerated well. Discharge instructions reviewed with pt. Pt verbalizes understanding.
== END 2023-01-04 00:37 | disposition home or self-care (01) ==
PROVIDERS: Physician Assistant Medical; Emergency Provider Emergency Medicine Emergency Medical Services; PCP Internal Medicine
DX: K52.9 Noninfective gastroenteritis and colitis, unspecified (principal); R11.2 Nausea with vomiting, unspecified; E86.0 Dehydration; Z20.822 Contact with and (suspected) exposure to COVID-19; Z20.828 Contact with and (suspected) exposure to other viral communicable diseases; Z79.899 Other long term (current) drug therapy
CPT/HCPCS: 0241U; 36415; 74177; 80053; 82077; 83690; 83735; 85025; 85610; 96360; 96361; 99284; Q9967

== ENCOUNTER 2023-03-04 22:52 | Emergency (ER) | payer OTHER, SELFPAY ==
[2023-03-04 22:53] VITALS: BP 149/91; PULSE 103; RESP 18; TEMP 36.6; O2SAT 94; BMI 28.5
[2023-03-05 01:23] VITALS: BP 129/72; PULSE 85; RESP 14; TEMP 36.9; O2SAT 95
--- NOTE | 2023-03-05 02:56 | ED.WOUNDLAC ---
HPI - Wound/Laceration General Chief Complaint: Wound/Laceration Stated Complaint: r foot pain d/t wart Time Seen by Provider: 03/05/23 02:47 History of Present Illness HPI narrative: Patient is a 37-year-old male present today with having pain to the plantar surface of the right foot. Near the 4th metatarsal phalangeal area. There is a white spot there. Patient claimed initially was a black dot. He tried to use some wart medication. The spot cm of the bigger. Still has pain localized to the area. There is no discharge from the area. 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 Related Data Previous Rx's Medication Instructions Recorded benzonatate 100 mg capsule 100 mg PO TID PRN cough #30 caps 11/11/22 ondansetron 4 mg disintegrating 4 mg PO Q8H PRN nausea and 11/11/22 tablet vomiting #7 tabs ondansetron 4 mg disintegrating 4 mg PO BEDTIME PRN nausea and 01/04/23 tablet vomiting 4 days #10 tabs Allergies Allergy/AdvReac Type Severity Reaction Status Date / Time No Known Allergies Allergy Verified 03/04/23 22:56 Review of Systems Review of Systems: Positive pain to the right foot Yes all other systems are reviewed and are negative PMFSH Past Medical History Attestation statement: The following information was validated with the patient. Medical History Asthma Social History Social History Smoked in Last 30 Days: Yes Use of substances other than those prescribed or required for medical reasons: No Substance Use Type: Marijuana Advance Directives: No Advance Directives Information Provided: No Physical Exam Vital Signs: Vital Signs: Last Vital Signs Temp 98.4 F 03/05/23 01:23 Pulse 85 03/05/23 01:23 Resp 14 03/05/23 01:23 BP 129/72 03/05/23 01:23 Pulse Ox 95 03/05/23 01:23 O2 Del Method Room Air 03/05/23 01:23 BMI result Body Mass Index 28.5 Appearance: Alert. Oriented X3. No acute distress. Eyes: Pupils equal, round and reactive to light. ENT: Pharynx normal. Neck: Normal inspection. Neck supple. No lymph nodes noted. No crepitus CVS: Normal heart rate and rhythm. Pulses normal. Normal S1 and S2 Respiratory: No respiratory distress. Breath sounds normal. No Wheezing. No rales Abdomen: Soft and nontender. No rigidity. No distention. good BS x4 Skin: Examination of the sole of the right feet foot showed the lesion that is approximately 1 cm x 1 cm in size that is white. It is not fluctuant. Seems hard. Sensation over the foot intact. Pulse 2 +at dorsalis pedis. Capillary refill less than 2 seconds. Extremities: No lower extremity edema. Neurovascular intact to all extremities. No Lacerations. No Rash Neuro: Oriented X 3. No motor deficit. No sensory deficit. Moving all extermities. No slurred speech Medical Decision Making Medical Decision Making MDM Narrative: Patient had a what appears to be a callus type material at the plantar surface of his foot. An x-ray is going to be ordered to rule out the possibility of fracture. Tetanus is going to be updated. Considering given patient antibiotic. However patient eloped from the emergency department. He was in stable condition no distress. Discharge Plan Discharge Clinical Impression: Callus Patient Disposition: Elopement Prescriptions: No Action ondansetron 4 mg tablet,disintegrating 4 mg PO Q8H PRN (Reason: nausea and vomiting) Qty: 7 0RF benzonatate 100 mg capsule 100 mg PO TID PRN (Reason: cough) Qty: 30 0RF ondansetron 4 mg tablet,disintegrating 4 mg PO BEDTIME PRN (Reason: nausea and vomiting) 4 Days Qty: 10 0RF Discharge Date/Time: 03/05/23 03:07
--- NOTE | 2023-03-05 03:06 | PC.NURSE ---
Pt left without being seen. Not in the room.
== END 2023-03-05 03:07 | disposition left against medical advice (07) ==
PROVIDERS: Emergency Provider Emergency Medicine Emergency Medical Services; PCP Internal Medicine
DX: L84 Corns and callosities (principal); M79.671 Pain in right foot
CPT/HCPCS: 99282; 99284

== ENCOUNTER 2023-08-17 13:12 | Emergency (ER) | payer OTHER, SELFPAY ==
--- NOTE | ~2023-08-17 | XR_ITS ---
EXAMINATION: XR CHEST CLINICAL INFORMATION: Cough. COMPARISON: Chest x-ray November 15, 2022 TECHNIQUE: 2 views of the chest were obtained. FINDINGS: No significant abnormality is noted involving the heart, lungs, mediastinum, bony thorax or soft tissues. XR/XR chest 2V IMPRESSION: Unremarkable examination.
[2023-08-17 14:17] VITALS: BP 135/109; PULSE 98; RESP 18; TEMP 36.8; O2SAT 100; BMI 27.1
[2023-08-17 16:00] LABS: Influenza A PCR NEGATIVE (Negative); Influenza B PCR NEGATIVE (Negative); Resp Syncy Virus RNA Qual PCR NEGATIVE (Negative); SARS COV2 PCR INHOUSE NEGATIVE (Negative)
[2023-08-17] MEDS: Ondansetron ODT 4 MG TAB.RAPDIS TRANSLINGU (18:50)
--- NOTE | 2023-08-17 18:53 | ED_ITS ---
HPI - URI/Sore Throat General Chief Complaint: Upper Respiratory Symptoms Stated Complaint: Flu Like Symptoms Time Seen by Provider: 08/17/23 18:34 Source: patient Mode of arrival: ambulatory Limitations: no limitations History of Present Illness HPI Narrative: This is a 38-year-old male with no known medical history who presents to the ER with 3 days of cough, congestion, chills, nausea vomiting and diarrhea. No chest pain, shortness of breath, abdominal pain, fever, headache, neck pain or neck stiffness. No recent travel or sick contact. Related Data Previous Rx's Medication Instructions Recorded benzonatate 100 mg capsule 100 mg PO TID PRN cough #30 caps 11/11/22 ondansetron 4 mg disintegrating 4 mg PO Q8H PRN nausea and 11/11/22 tablet vomiting #7 tabs ondansetron 4 mg disintegrating 4 mg PO BEDTIME PRN nausea and 01/04/23 tablet vomiting 4 days #10 tabs benzonatate 200 mg capsule 200 mg PO TID PRN cough #20 caps 08/17/23 ondansetron 4 mg disintegrating 4 mg PO Q6H PRN nausea and 08/17/23 tablet vomiting #15 tabs Allergies Allergy/AdvReac Type Severity Reaction Status Date / Time No Known Allergies Allergy Verified 08/17/23 14:17 Review of Systems 2 Neurologic: Denies Abnormal speech present [facility] Past Medical History Medical History Asthma Social History Social History Substance Use Type: Marijuana Advance Directives: No Advance Directives Information Provided: No Physical Exam 2 Vital Signs: Vital Signs: Last Vital Signs Temp 98.2 F 08/17/23 14:17 Pulse 92 08/17/23 19:34 Resp 16 08/17/23 19:34 BP 135/109 H 08/17/23 14:17 Pulse Ox 98 08/17/23 19:34 O2 Del Method Room Air 08/17/23 19:34 BMI result Body Mass Index 27.1 Const: General: cooperative, healthy appearing, comfortable and no acute distress Orientation/consciousness: patient oriented x3 Limitations: no limitations HEENT: Head: Yes normal to inspection Ears: hearing grossly normal bilaterally and TM's normal bilaterally General nose exam: Normal external nose present Face and sinus: Yes normal facial exam Mouth: Normal oral and palatal mucosa present Throat: Yes posterior oropharynx normal, Yes tonsils normal and Yes uvula midline Eyes: General: appearance normal, both eyes and all related structures P upils: Equal, round and reactive pupils present Neck: Neck: Yes normal visual inspection, Yes full ROM, Yes no lymphadenopathy and Yes no meningeal signs Chest: Chest palpation & inspection: normal inspection of the chest Resp: Effort & Inspection: normal respiratory effort Auscultation: clear to auscultation bilaterally Cardio: Rate: regular rate Rhythm: regular rhythm Peripheral pulses: P eripheral pulses 2+ throughout GI: Inspection: Yes normal to inspection Palpation (GI): Soft to palpation and nontender Auscultation: normal bowel sounds Back/Spine/Pelvis: Thoracic/Lumbar Spine: thoracic and lumbar spine normal to inspection Skin: General skin exam: no rashes or lesions noted Neuro: General: patient oriented x3, no meningeal signs, no focal motor deficits and normal sensation to monofilament Cranial nerves: Yes Equal, round and reactive pupils present Cognition (Neuro): normal cognition S peech: No Abnormal speech present Gait exam (Neuro): Normal gait present M otor exam (neuro): 5/5 motor strength present throughout Extrem: General: Yes normal to inspection Course Course Course Narrative: 1939-patient unable to tolerate p.o.. Will place P IV and give IV fluids and antiemetic and reassess Reevaluation(s) Reevaluation #1: Patient now tolerating p.o.. Likely viral syndrome. Reviewed worrisome signs and symptoms of when to return to the emergency room. Comfortable plan for discharge home Medications Administered Generic Name Dose Route Start Last Admin Trade Name Freq PRN Reason Stop Dose Admin Sodium Chloride 2,000 mls @ 999 mls/hr 08/17/23 19:33 08/17/23 19:51 Ns IV 08/17/23 21:33 999 mls/hr .Q2H1M STA Administration Discontinued Medications Generic Name Dose Route Start Last Admin Trade Name Freq PRN Reason Stop Dose Admin Ondansetron HCl 4 mg 08/17/23 18:47 08/17/23 18:50 Ondansetron Odt 4 Mg Tab.Rapdis TRANSLINGU 08/17/23 18:48 4 mg ONCE ONE Administration Ondansetron HCl 4 mg 08/17/23 19:33 08/17/23 20:03 Ondansetron Hcl 4 Mg/2 Ml Vial IVPUSH 08/17/23 19:34 4 mg ONCE ONE Administration Medical Decision Making Medical Decision Making [facility] Narrative: This is a 38-year-old male with no known medical history who presents to the ER with 3 days of cough, congestion, chills, nausea vomiting and diarrhea. No chest pain, shortness of breath, abdominal pain, fever, headache, neck pain or neck stiffness. No recent travel or sick contact. Exam is benign. Vitals are stable. Patient reports unable to tolerate p.o. due to vomiting. He does not appear dehydrated. However we will give him sublingual Zofran and attempt a p.o. trial. Will review viral swabs, chest x-ray ordered from triage Differential Diagnosis Differential Diagnoses: The differential diagnosis associated with the presentation includes Low concern for pneumonia, PE with perc 0 Viral syndrome, gastroenteritis, influenza Admission/Observation Consideration of admission/observation: Escalation of care including admission/observation considered Lab Data [facility] Lab Attestation statement: I reviewed the patient's lab results. 08/17/23 19:50 08/17/23 19:50 Labs: Lab Results 08/17/23 08/17/23 Range/Units 14:40 19:50 WBC 8.4 (4.8-10.8) X10*3/uL RBC 4.79 (4.60-5.80) X10*6/uL Hgb 14.3 (14.0-18.0) g/dl Hct 43.1 (42.0-52.0) % MCV 90.0 (80.0-98.0) fL MCH 29.9 (27.0-33.0) pg MCHC 33.2 (31.0-36.0) g/dl RDW 13.4 (11.0-16.0) % Plt Count 331 (160-400) X10*3/uL MPV 8.6 L (9.4-12.4) fL Immature Gran % (Auto) 0.5 H (0.0-0.4) % Neut % (Auto) 73.6 H (45-73) % Lymph % (Auto) 18.4 L (20-40) % Delta % (Auto) 7.1 (2-11) % Eos % (Auto) 0.2 (0-4) % Baso % (Auto) 0.2 (0-2) % Lymph # (Auto) 1.5 (1.2-4.9) X10*3/uL Delta # (Auto) 0.6 (0.1-1.2) X10*3/uL Eos # (Auto) 0.0 (0.0-0.4) X10*3/uL Baso # (Auto) 0.0 (0.0-0.2) X10*3/uL Abs Immat Gran (auto) 0.04 H (0.00-0.03) X10*3/uL Absolute Neuts (auto) 6.2 (2.0-8.3) x10*3/uL Absolute Nucleated RBC 0.000 (0.0-0.012) X10*3/uL Nucleated RBC % (auto) 0.0 (0.0-0.2) /100WBC Sodium 138 (135-145) mmol/L Potassium 4.5 D (3.3-5.1) mmol/L Chloride 103 (96-108) mmol/L Carbon Dioxide 25 (22-29) mmol/L Anion Gap 15 (12-20) BUN 17 H (9-16) mg/dL Creatinine 0.83 (0.5-1.4) mg/dL Estim Creat Clear Calc 129.8 Estimated GFR > 60 Random Glucose 110 (60-115) mg/dL Calcium 10.1 D (8.4-10.2) mg/dL Total Bilirubin 0.4 (0.0-1.0) mg/dL Direct Bilirubin 0.1 (0.0-0.5) mg/dL AST 16 (5-37) U/L ALT 18 (0-40) U/L Alkaline Phosphatase 82 (39-117) U/L Total Protein 9.1 H (6.5-8.0) g/dL Albumin 4.6 (3.5-5.0) g/dL Influenza Type A (PCR) NEGATIVE (Negative) Influenza Type B (PCR) NEGATIVE (Negative) RSV RNA Qual (PCR) NEGATIVE (Negative) SARS-CoV-2 RNA (RT-PCR) NEGATIVE (Negative) Independent Interpretation I performed an independent interpretation of an: Plain X-Ray Interpretation: I independently reviewed the x-ray and agree with the radiology report Radiology Impression Discussion of test interpretation with radiology: I have reviewed the radiologist's reading. Radiologist Impression: [address] [address] XRay Report Signed Patient: Landon Sharp MR#: [id number] : 1985 Acct:[id number] Age/Sex: 38 / M ADM Date: 08/17/23 Loc: .ED Attending Dr: Ordering Physician: Generic ED Physician Date of Service: 08/17/23 Procedure(s): XR chest 2V Accession Number(s): [id number] cc: Harley Abad DO; Salomon ED Physician~ EXAMINATION: XR CHEST CLINICAL INFORMATION: Cough. COMPARISON: Chest x-ray November 15, 2022 TECHNIQUE: 2 views of the chest were obtained. FINDINGS: No significant abnormality is noted involving the heart, lungs, mediastinum, bony thorax or soft tissues. XR/XR chest 2V IMPRESSION: Unremarkable examination. Discharge Plan Discharge Clinical Impression: Viral infection Patient Disposition: Home, Self-Care Instructions: Viral Syndrome (ED) Additional Instructions: Your viral testing is negative. Your chest x-ray shows no signs of pneumonia. Please take medications as prescribed. Also alternate Motrin and Tylenol as needed for pain or fever Increase fluids, rest, return for any worsening symptoms Prescriptions: New benzonatate 200 mg capsule 200 mg PO TID PRN (Reason: cough) Qty: 20 0RF ondansetron 4 mg tablet,disintegrating 4 mg PO Q6H PRN (Reason: nausea and vomiting) Qty: 15 0RF No Action ondansetron 4 mg tablet,disintegrating 4 mg PO Q8H PRN (Reason: nausea and vomiting) Qty: 7 0RF benzonatate 100 mg capsule 100 mg PO TID PRN (Reason: cough) Qty: 30 0RF ondansetron 4 mg tablet,disintegrating 4 mg PO BEDTIME PRN (Reason: nausea and vomiting) 4 Days Qty: 10 0RF Referrals: Harley Abad DO [Primary Care Provider] - 1 week Stand Alone Forms: Work/School Release
--- NOTE | 2023-08-17 19:00 | PC.NURSE ---
Patient given Zofran PO as ordered for nausea/vomiting. To trial PO challenge per provider.
--- NOTE | 2023-08-17 19:30 | PC.NURSE ---
PO challenge unsuccessful. Pt vomited shortly after drinking small amount of jacques toan. Provider aware. Plan to insert IV and administer fluids and medications.
[2023-08-17 19:34] VITALS: PULSE 92; RESP 16; O2SAT 98
[2023-08-17] MEDS: 0.9 % Sodium Chloride 2,000 ML 999 ML IV (19:51)
[2023-08-17 19:58] LABS: MANUAL DIFF FLAG NO
[2023-08-17] MEDS: ondansetron HCL 4 MG/2 ML VIAL IVPUSH (20:03)
[2023-08-17 20:06] LABS: Basophils Percent Auto 0.2 % (0-2); Eosinophils Percent Auto 0.2 % (0-4); Hematocrit 43.1 % (42.0-52.0); Hemoglobin 14.3 g/dl (14.0-18.0); Imm Gran Abs Auto 0.04 X10*3/uL (0.00-0.03); Imm Gran Pct Auto 0.5 % (0.0-0.4); Lymphocytes Absolute Auto 1.5 X10*3/uL (1.2-4.9); Lymphocytes Percent Auto 18.4 % (20-40); Mean Corpuscular HGB Conc 33.2 g/dl (31.0-36.0); Mean Corpuscular Hemoglobin 29.9 pg (27.0-33.0); Mean Platelet Volume 8.6 fL (9.4-12.4); Monocytes Absolute Auto 0.6 X10*3/uL (0.1-1.2); Monocytes Percent Auto 7.1 % (2-11); Neutrophils Absolute Auto 6.2 x10*3/uL (2.0-8.3); Neutrophils Percent Auto 73.6 % (45-73); Platelet Count 331 X10*3/uL (160-400); Red Blood Count 4.79 X10*6/uL (4.60-5.80); Red Cell Distribution Width 13.4 % (11.0-16.0); White Blood Count 8.4 X10*3/uL (4.8-10.8)
--- NOTE | 2023-08-17 20:10 | PC.NURSE ---
pt medicated per MAR- 20G IV placed in R-AC
[2023-08-17 20:17] LABS: Alanine Aminotransferase 18 U/L (0-40); Albumin Level 4.6 g/dL (3.5-5.0); Alkaline Phosphatase 82 U/L (39-117); Anion Gap 15 (12-20); Aspartate Amino Transferase 16 U/L (5-37); Bilirubin Direct 0.1 mg/dL (0.0-0.5); Bilirubin Total 0.4 mg/dL (0.0-1.0); Blood Urea Nitrogen 17 mg/dL (9-16); Calcium 10.1 mg/dL (8.4-10.2); Carbon Dioxide 25 mmol/L (22-29); Chloride 103 mmol/L (96-108); Creatinine Clr Calc Pharmacy 129.8; Estimated Glomerular Filt Rate > 60; Glucose Random 110 mg/dL (60-115); Potassium 4.5 mmol/L (3.3-5.1); Sodium 138 mmol/L (135-145); Total Protein 9.1 g/dL (6.5-8.0)
== END 2023-08-17 22:05 | disposition home or self-care (01) ==
PROVIDERS: Nurse Practitioner Family; Emergency Provider Internal Medicine; PCP Internal Medicine
DX: B34.9 Viral infection, unspecified (principal); R05.9 Cough, unspecified; R11.2 Nausea with vomiting, unspecified; Z20.822 Contact with and (suspected) exposure to COVID-19; Z20.828 Contact with and (suspected) exposure to other viral communicable diseases; F12.90 Cannabis use, unspecified, uncomplicated; Z79.899 Other long term (current) drug therapy
CPT/HCPCS: 0241U; 36415; 71046; 80048; 80076; 85025; 96374; 99283; 99284; J2405

== ENCOUNTER 2023-10-30 08:12 | Emergency (ER) | payer OTHER, SELFPAY ==
[2023-10-30 08:15] VITALS: BP 142/91; PULSE 92; RESP 18; TEMP 36.2; O2SAT 97; BMI 27.1
--- NOTE | 2023-10-30 08:42 | ED.GENADULT ---
HPI - General Adult General Chief complaint: Extremity Injury, Lower Stated complaint: Swollen foot Time Seen by Provider: 10/30/23 08:26 Source: patient Mode of arrival: ambulatory Limitations: no limitations History of Present Illness HPI narrative: This is a 38 years old male presented to the emergency department complaining of right foot pain, he has duration in the plantar aspect right foot. Denies any injury denies any foreign body. To be noted he was seen on March 05 with the same complaints was diagnosed with a callus on the right foot Onset (ago): week(s) (1) Location: lower extremity (rt foot plantar aspect) Radiation: non-radiation Severity: mild Quality: burning Pain Consistency: constant Relieving factors: none Exacerbating factors: none Associated symptoms: denies other symptoms Related Data Previous Rx's Medication Instructions Recorded benzonatate 100 mg capsule 100 mg PO TID PRN cough #30 caps 11/11/22 ondansetron 4 mg disintegrating 4 mg PO Q8H PRN nausea and 11/11/22 tablet vomiting #7 tabs ondansetron 4 mg disintegrating 4 mg PO BEDTIME PRN nausea and 01/04/23 tablet vomiting 4 days #10 tabs benzonatate 200 mg capsule 200 mg PO TID PRN cough #20 caps 08/17/23 ondansetron 4 mg disintegrating 4 mg PO Q6H PRN nausea and 08/17/23 tablet vomiting #15 tabs cephalexin 500 mg capsule 500 mg PO Q8H 7 days #21 caps 10/30/23 naproxen 500 mg tablet (Naprosyn) 500 mg PO BID PRN PAIN #20 tabs 10/30/23 Allergies Allergy/AdvReac Type Severity Reaction Status Date / Time No Known Allergies Allergy Verified 10/30/23 08:17 Review of Systems Constitutional: Constitutional: Reports no additional constitutional complaints and Denies fever(s) Cardiovascular: Cardiovascular: Reports no additional cardiovascular complaints COUNTS INCLUDE 234 BEDS AT THE [facility] Past Medical History COUNTS INCLUDE 234 BEDS AT THE [facility] Narrative: substance abuse Onset Date is defined in the Problem List Problems that require an onset date and time if occurred within 24 hrs of arrival to the ED Aortic Dissection and Rupture; Neurologic impairment; Cardiopulmonary Arrest; Endotracheal Intubation; Insertion or Replacement of Mechanical Circulatory Assist Device Medical History Asthma Social History Social History Substance Use Type: Marijuana Advance Directives: No Advance Directives Information Provided: Yes Physical Exam ED Vital Signs: Vital Signs - 24 hr 10/30/23 08:15 Temperature 97.2 F Pulse Rate 92 Respiratory Rate 18 Blood Pressure 142/91 H Pulse Oximetry 97 Oxygen Delivery Method Room Air BMI result Body Mass Index 27.1 Const General: cooperative, comfortable, no acute distress, well developed, alert and awake Nutritional Appearance: well nourished Orientation/consciousness: patient oriented x3 Limitations: no limitations HENMT Head: Yes normal to inspection Ears: hearing grossly normal bilaterally General nose exam: Normal external nose present Face and sinus: Yes normal facial exam Mouth: Normal oral and palatal mucosa present Throat: Yes posterior oropharynx normal Neck Neck: Yes normal visual inspection and Yes full ROM Thyroid: Thyroid normal Chest Chest palpation & inspection: normal inspection of the chest Resp Effort & Inspection: normal respiratory effort Auscultation: clear to auscultation bilaterally Cardio Jugular venous distension: no JVD Rate: regular rate Rhythm: regular rhythm GI Inspection: Yes normal to inspection Skin Other: Neuro General: patient oriented x3 Extrem Other: plantar aspect rt foot there is a callus present (see picture) Medical Decision Making Medical Decision Making MDM Narrative: patient presented with right foot pain he has a Callus in the plantar aspect the of the right foot at the level of the 4th left 5th metatarsal head. Foot seems to be a little red wonder if he has superinfection. will get x-ray to rule out foreign body/stress fx's xray no foreign body no stress fx's ,I think pt can be d/c home on antiinflammatories I will give also AB for possible superinfection foot . I gave the number of manager management for follow up he will call in Am. He is comfortable with the plan of care. Differential Diagnosis Differential Diagnoses: The differential diagnosis associated with the presentation includes Callus/cellulitis/foreign body Admission/Observation Consideration of admission/observation: Escalation of care including admission/observation considered Independent Interpretation I performed an independent interpretation of an: Plain X-Ray Interpretation: Review and interpreted x-ray no foreign body no fracture Radiology Impression Discussion of test interpretation with radiology: I have reviewed the radiologist's reading. Radiologist Impression: CLINICAL INFORMATION: Foreign body COMPARISON: None available. TECHNIQUE: AP, lateral, and oblique views of the right foot. FINDINGS: The bones and soft tissues are normal. No fracture. Alignment is anatomic. Joint spaces are maintained. No radiopaque metallic foreign body seen. XR/XR foot RT min 3V IMPRESSION: No radiopaque metallic foreign body seen. There is small retrocalcaneal enthesophyte. Mild dorsal foot soft tissue swelling. Dictated By: Ambrose Singer MD Signed By: <Electronically signed by Ambrose Singer MD in OV> 10/30/23 0906 External Record Review External record reviewed: Inpatient record Prescription Management I considered prescription management with: Antibiotic Chronic Conditions Patient?s care impacted by: Other (substance abuse) Social Determinants Patient?s care significantly limited by Social Determinants of Health including: Other Social Determinant of Health substance abuse Discharge Plan Discharge Clinical Impression: Foot callus, Cellulitis of foot Patient Disposition: Home, Self-Care Instructions: Cellulitis (DC) Additional Instructions: Follow up with Professor Of Practice return if worse Prescriptions: New naproxen [Naprosyn] 500 mg tablet 500 mg PO BID PRN (Reason: PAIN) Qty: 20 0RF cephalexin 500 mg capsule 500 mg PO Q8H 7 Days Qty: 21 0RF No Action ondansetron 4 mg tablet,disintegrating 4 mg PO Q8H PRN (Reason: nausea and vomiting) Qty: 7 0RF benzonatate 100 mg capsule 100 mg PO TID PRN (Reason: cough) Qty: 30 0RF ondansetron 4 mg tablet,disintegrating 4 mg PO BEDTIME PRN (Reason: nausea and vomiting) 4 Days Qty: 10 0RF benzonatate 200 mg capsule 200 mg PO TID PRN (Reason: cough) Qty: 20 0RF ondansetron 4 mg tablet,disintegrating 4 mg PO Q6H PRN (Reason: nausea and vomiting) Qty: 15 0RF Referrals: Dante Sheffield DPM [Physician] - 2 days Discharge Date/Time: 10/30/23 09:15
== END 2023-10-30 09:15 | disposition home or self-care (01) ==
PROVIDERS: Emergency Provider Emergency Medicine; PCP Internal Medicine
DX: L03.115 Cellulitis of right lower limb (principal); L84 Corns and callosities; M79.671 Pain in right foot
CPT/HCPCS: 73630; 99281; 99283

== ENCOUNTER 2023-11-05 15:42 | Emergency (ER) | payer OTHER, SELFPAY ==
--- NOTE | ~2023-11-05 | XR_ITS ---
EXAMINATION: XR SHOULDER, RIGHT CLINICAL INFORMATION: Right shoulder pain, right posterior shoulder hematoma COMPARISON: None available. TECHNIQUE: AP external rotation, Grashey, scapular Y, and axillary views of the right shoulder. FINDINGS: No evidence of acute fracture or malalignment. Glenohumeral joint space is well-preserved. Acromioclavicular joint is unremarkable. Coracoclavicular distance is normal. Soft tissues are unremarkable. XR/XR shoulder RT min 2V IMPRESSION: Normal right shoulder radiographs.
[2023-11-05 17:38] VITALS: BP 167/91; PULSE 88; RESP 18; TEMP 36.7; O2SAT 96; BMI 27.8
--- NOTE | 2023-11-05 17:38 | ED_ITS ---
HPI - Extremity Injury (Upper) General Chief Complaint: Extremity Injury, Upper Stated Complaint: Rt should swollen/bruised/unknown why Time Seen by Provider: 11/05/23 19:22 Source: patient and RN notes reviewed Mode of arrival: ambulatory Limitations: no limitations History of Present Illness HPI narrative: This is a 38-lzbs-aht-male, with no known medical problems, presenting to the emergency department complaints of right shoulder pain and ecchymosis. Patient states that he has had ongoing right shoulder pain and problems for many years. He states that on Tuesday he played tackle football, and he also played basketball this week. He denies any known injury or trauma to his shoulder. He states that while using the locker room today his friend noticed an area of bruising to his right upper back. He is unsure where this bruising had come from. He does not drink alcohol. No other complaints or concerns at this time. MD complaint: injury to: right and shoulder Onset (ago): day(s) Other injuries: none Handedness: right Place: home Relieving factors: none Exacerbating factors: none Associated symptoms: denies other symptoms Related Data Previous Rx's Medication Instructions Recorded benzonatate 100 mg capsule 100 mg PO TID PRN cough #30 caps 11/11/22 ondansetron 4 mg disintegrating 4 mg PO Q8H PRN nausea and 11/11/22 tablet vomiting #7 tabs ondansetron 4 mg disintegrating 4 mg PO BEDTIME PRN nausea and 01/04/23 tablet vomiting 4 days #10 tabs benzonatate 200 mg capsule 200 mg PO TID PRN cough #20 caps 08/17/23 ondansetron 4 mg disintegrating 4 mg PO Q6H PRN nausea and 08/17/23 tablet vomiting #15 tabs cephalexin 500 mg capsule 500 mg PO Q8H 7 days #21 caps 10/30/23 naproxen 500 mg tablet (Naprosyn) 500 mg PO BID PRN PAIN #20 tabs 10/30/23 acetaminophen 500 mg tablet 500 mg PO Q6H PRN pain #30 tabs 11/05/23 (Tylenol Extra Strength) ibuprofen 600 mg tablet 600 mg PO Q6H PRN pain #30 tabs 11/05/23 lidocaine 5 % topical patch 1 patch topical DAILY #30 ea 11/05/23 (Lidoderm) Allergies Allergy/AdvReac Type Severity Reaction Status Date / Time No Known Allergies Allergy Verified 10/30/23 08:17 Review of Systems 2 Review of Systems: Yes all other systems are reviewed and are negative Constitutional: Constitutional: Reports as per [facility] Past Medical History Attestation statement: The following information was validated with the patient. Onset Date is defined in the Problem List Problems that require an onset date and time if occurred within 24 hrs of arrival to the ED Aortic Dissection and Rupture; Neurologic impairment; Cardiopulmonary Arrest; Endotracheal Intubation; Insertion or Replacement of Mechanical Circulatory Assist Device Medical History Asthma Social History Social History Substance Use Type: Marijuana Advance Directives: No Advance Directives Information Provided: Yes Physical Exam 2 Vital Signs: Vital Signs: Last Vital Signs Temp 98.1 F 11/05/23 17:38 Pulse 88 11/05/23 17:38 Resp 18 11/05/23 17:38 BP 167/91 H 11/05/23 17:38 Pulse Ox 96 11/05/23 17:38 O2 Del Method Room Air 11/05/23 17:38 BMI result Body Mass Index 27.8 Const: General: cooperative, comfortable and no acute distress O rientation/consciousness: patient oriented x3 Limitations: no limitations HEENT: Head: Yes normal to inspection, Yes normocephalic and Yes atraumatic Ears: hearing grossly normal bilaterally General nose exam: Normal external nose present Face and sinus: Yes normal facial exam Mouth: Normal oral and palatal mucosa present, oropharynx normal and moist mucous membranes Throat: Yes posterior oropharynx normal Eyes: General: appearance normal, both eyes and all related structures E yelids: Yes eyelids normal Conjunctivae: conjunctivae normal Sclerae: s clerae normal Pupils: Equal, round and reactive pupils present EOM: EOMs intact bilaterally Neck: Neck: Yes normal visual inspection, Yes full ROM and Yes no lymphadenopathy Lymphatic: no lymphadenopathy noted Chest: Chest palpation & inspection: normal inspection of the chest Resp: Effort & Inspection: normal respiratory effort and able to speak in complete sentences Auscultation: clear to auscultation bilaterally, no crackles, no rales, no rhonchi and no wheezes Cardio: Rate: regular rate Rhythm: regular rhythm Heart sounds: S1 normal heart sound present and S2 normal heart sound present GI: Inspection: Yes normal to inspection Skin: General skin exam: no rashes or lesions noted Trauma: no lacerations or abrasions Wounds: no wounds Neuro: General: patient oriented x3 and moves all extremities Cranial nerves: Yes Equal, round and reactive pupils present Extrem: Other: Right posterior shoulder with 4 x 4 cm ecchymotic/hematoma region that is tender to palpation not indurated no surrounding warmth or erythema. Right shoulder, no bony step-off or deformity range of motion, negative empty can test, negative lift-off test General: Yes normal to inspection Right upper extremity: normal to inspection Left upper extremity: normal to inspection Right lower extremity: normal to inspection Left lower extremity: normal to inspection Medical Decision Making Medical Decision Making [facility] Narrative: This is a 38-year-old male, with no known medical problems, presenting to the emergency department complaints of right shoulder pain and bruising. He has a history of chronic right shoulder pain. Circular hematoma ecchymotic region with central later ecchymotic region noted to the right shoulder, see photo for further image. I reviewed case with my attending physician, Dr. Ambriz. Labs were ordered, mild leukopenia at 3.9, H&H 11.7/35.8, normocytic anemia noted. He has a history of this. Normal platelets. Right shoulder x-ray obtained and was unremarkable. Patient has full range of motion of the right shoulder. I discussed workup with patient, advised to follow-up with primary care physician in 1 week to have repeat blood work. Advised to closely monitor region and to return if any new or worsening symptoms occur, patient understands and agrees with plan. Stable for discharge Differential Diagnosis Differential Diagnoses: The differential diagnosis associated with the presentation includes Hematoma, contusion, abscess, thrombocytopenia Lab Data [facility] Lab Attestation statement: I reviewed the patient's lab results. See MDM 11/05/23 17:58 11/05/23 17:58 Labs: Lab Results 11/05/23 Range/Units 17:58 WBC 3.9 L (4.8-10.8) X10*3/uL RBC 3.94 L (4.60-5.80) X10*6/uL Hgb 11.7 L (14.0-18.0) g/dl Hct 35.8 L (42.0-52.0) % MCV 90.9 (80.0-98.0) fL MCH 29.7 (27.0-33.0) pg MCHC 32.7 (31.0-36.0) g/dl RDW 13.7 (11.0-16.0) % Plt Count 276 (160-400) X10*3/uL MPV 8.6 L (9.4-12.4) fL Immature Gran % (Auto) 0.3 (0.0-0.4) % Neut % (Auto) 46.8 (45-73) % Lymph % (Auto) 40.6 H (20-40) % Wythe % (Auto) 8.4 (2-11) % Eos % (Auto) 3.6 (0-4) % Baso % (Auto) 0.3 (0-2) % Lymph # (Auto) 1.6 (1.2-4.9) X10*3/uL Wythe # (Auto) 0.3 (0.1-1.2) X10*3/uL Eos # (Auto) 0.1 (0.0-0.4) X10*3/uL Baso # (Auto) 0.0 (0.0-0.2) X10*3/uL Abs Immat Gran (auto) 0.01 (0.00-0.03) X10*3/uL Absolute Neuts (auto) 1.9 L (2.0-8.3) x10*3/uL Absolute Nucleated RBC 0.000 (0.0-0.012) X10*3/uL Nucleated RBC % (auto) 0.0 (0.0-0.2) /100WBC PT 10.6 L (11.1-13.3) SEC INR 0.9 (0.9-1.1) APTT 31.8 (26.0-36.4) SEC Sodium 141 (135-145) mmol/L Potassium 3.8 (3.3-5.1) mmol/L Chloride 105 (96-108) mmol/L Carbon Dioxide 29 (22-29) mmol/L Anion Gap 11 L (12-20) BUN 16 (9-16) mg/dL Creatinine 0.92 (0.5-1.4) mg/dL Estim Creat Clear Calc 117.1 Estimated GFR > 60 Random Glucose 98 (60-115) mg/dL Calcium 9.0 D (8.4-10.2) mg/dL Total Bilirubin 0.1 (0.0-1.0) mg/dL AST 13 (5-37) U/L ALT 13 (0-40) U/L Alkaline Phosphatase 73 (39-117) U/L Total Protein 7.6 (6.5-8.0) g/dL Albumin 4.0 (3.5-5.0) g/dL Radiology Impression Discussion of test interpretation with radiology: I have reviewed the radiologist's reading. Radiologist Impression: EXAMINATION: XR SHOULDER, RIGHT CLINICAL INFORMATION: Right shoulder pain, right posterior shoulder hematoma COMPARISON: None available. TECHNIQUE: AP external rotation, Grashey, scapular Y, and axillary views of the right shoulder. FINDINGS: No evidence of acute fracture or malalignment. Glenohumeral joint space is well-preserved. Acromioclavicular joint is unremarkable. Coracoclavicular distance is normal. Soft tissues are unremarkable. XR/XR shoulder RT min 2V IMPRESSION: Normal right shoulder radiographs. Dictated By: Bruno Colon MD Discharge Plan Discharge Clinical Impression: Hematoma of shoulder Leukopenia Qualifiers: Neutropenia type: unspecified Clinical Impression: (Ruled Out): Fracture of humerus Patient Disposition: Home, Self-Care Instructions: Contusion in Adults (ED) Additional Instructions: You were seen in the emergency department due to discoloration to your right shoulder. It is unclear what cause you to have this discoloration, however it does appear to be a bruise like you injured it on something. Please rest, ice, gentle range of motion and massage can also help with your symptoms. Take ibuprofen and/or Tylenol as directed for pain and symptoms. Please follow-up with your primary care physician. Your blood work does show mild leukopenia, this is a low white blood cell count, please follow-up with your primary care physician next week to have a repeat blood draw. If any new or worsening symptoms occur including but not limited chest pain, shortness of breath, worsening pain please report to nearest emergency room. Prescriptions: New ibuprofen 600 mg tablet 600 mg PO Q6H PRN (Reason: pain) Qty: 30 0RF acetaminophen [Tylenol Extra Strength] 500 mg tablet 500 mg PO Q6H PRN (Reason: pain) Qty: 30 0RF lidocaine [Lidoderm] 5 % adhesive patch,medicated 1 patch topical DAILY Qty: 30 0RF Rx Instructions: leave on most painful area for up to 12 hrs No Action ondansetron 4 mg tablet,disintegrating 4 mg PO Q8H PRN (Reason: nausea and vomiting) Qty: 7 0RF benzonatate 100 mg capsule 100 mg PO TID PRN (Reason: cough) Qty: 30 0RF ondansetron 4 mg tablet,disintegrating 4 mg PO BEDTIME PRN (Reason: nausea and vomiting) 4 Days Qty: 10 0RF naproxen [Naprosyn] 500 mg tablet 500 mg PO BID PRN (Reason: PAIN) Qty: 20 0RF cephalexin 500 mg capsule 500 mg PO Q8H 7 Days Qty: 21 0RF benzonatate 200 mg capsule 200 mg PO TID PRN (Reason: cough) Qty: 20 0RF ondansetron 4 mg tablet,disintegrating 4 mg PO Q6H PRN (Reason: nausea and vomiting) Qty: 15 0RF
[2023-11-05 18:01] LABS: MANUAL DIFF FLAG NO
[2023-11-05 18:03] LABS: Basophils Percent Auto 0.3 % (0-2); Eosinophils Absolute Auto 0.1 X10*3/uL (0.0-0.4); Eosinophils Percent Auto 3.6 % (0-4); Hematocrit 35.8 % (42.0-52.0); Hemoglobin 11.7 g/dl (14.0-18.0); Imm Gran Abs Auto 0.01 X10*3/uL (0.00-0.03); Imm Gran Pct Auto 0.3 % (0.0-0.4); Lymphocytes Absolute Auto 1.6 X10*3/uL (1.2-4.9); Lymphocytes Percent Auto 40.6 % (20-40); Mean Corpuscular HGB Conc 32.7 g/dl (31.0-36.0); Mean Corpuscular Hemoglobin 29.7 pg (27.0-33.0); Mean Corpuscular Volume 90.9 fL (80.0-98.0); Mean Platelet Volume 8.6 fL (9.4-12.4); Monocytes Absolute Auto 0.3 X10*3/uL (0.1-1.2); Monocytes Percent Auto 8.4 % (2-11); Neutrophils Absolute Auto 1.9 x10*3/uL (2.0-8.3); Neutrophils Percent Auto 46.8 % (45-73); Platelet Count 276 X10*3/uL (160-400); Red Blood Count 3.94 X10*6/uL (4.60-5.80); Red Cell Distribution Width 13.7 % (11.0-16.0); White Blood Count 3.9 X10*3/uL (4.8-10.8)
[2023-11-05 18:09] LABS: INTERNATIONAL NORM RATIO 0.9 (0.9-1.1); Prothrombin Time 10.6 SEC (11.1-13.3)
[2023-11-05 18:12] LABS: Partial Thromboplastin Time 31.8 SEC (26.0-36.4)
[2023-11-05 18:17] LABS: Alanine Aminotransferase 13 U/L (0-40); Alkaline Phosphatase 73 U/L (39-117); Anion Gap 11 (12-20); Aspartate Amino Transferase 13 U/L (5-37); Bilirubin Total 0.1 mg/dL (0.0-1.0); Blood Urea Nitrogen 16 mg/dL (9-16); Carbon Dioxide 29 mmol/L (22-29); Chloride 105 mmol/L (96-108); Creatinine Clr Calc Pharmacy 117.1; Estimated Glomerular Filt Rate > 60; Glucose Random 98 mg/dL (60-115); Potassium 3.8 mmol/L (3.3-5.1); Sodium 141 mmol/L (135-145); Total Protein 7.6 g/dL (6.5-8.0)
== END 2023-11-05 20:51 | disposition home or self-care (01) ==
PROVIDERS: Physician Assistant Medical; Emergency Provider Internal Medicine; PCP Internal Medicine
DX: M79.81 Nontraumatic hematoma of soft tissue (principal); D72.819 Decreased white blood cell count, unspecified; D64.9 Anemia, unspecified; M25.511 Pain in right shoulder
CPT/HCPCS: 36415; 73030; 80053; 85025; 85610; 85730; 99282; 99283

== ENCOUNTER 2023-11-24 19:46 | Emergency (ER) | payer OTHER, SELFPAY ==
[2023-11-24 19:53] VITALS: BP 130/98; PULSE 105; RESP 20; TEMP 36.2; O2SAT 96; BMI 27.1
--- NOTE | 2023-11-24 21:56 | ED_ITS ---
HPI - Wound/Laceration General Chief Complaint: Wound/Laceration Stated Complaint: joinery patternmaker to foot, still bleedin Time Seen by Provider: 11/24/23 21:18 Source: patient Mode of arrival: ambulatory Limitations: no limitations History of Present Illness HPI narrative: Patient is a 38-year-old male who presents emergency department for evaluation of a laceration to the sole of his left foot along the heel. He states his children were supposed to clean up a mess in the kitchen, however they left the Internal blade to the joinery patternmaker/mixer on the floor and he did not see it. When attempting to brain picker the bag of trash he cut his foot on the blade. Denies numbness tingling or cold sensation to the foot. Reports his last tetanus vaccination was 20 years ago. Requesting repair with butterfly stitches Related Data Previous Rx's Medication Instructions Recorded benzonatate 100 mg capsule 100 mg PO TID PRN cough #30 caps 11/11/22 ondansetron 4 mg disintegrating 4 mg PO Q8H PRN nausea and 11/11/22 tablet vomiting #7 tabs ondansetron 4 mg disintegrating 4 mg PO BEDTIME PRN nausea and 01/04/23 tablet vomiting 4 days #10 tabs benzonatate 200 mg capsule 200 mg PO TID PRN cough #20 caps 08/17/23 ondansetron 4 mg disintegrating 4 mg PO Q6H PRN nausea and 08/17/23 tablet vomiting #15 tabs cephalexin 500 mg capsule 500 mg PO Q8H 7 days #21 caps 10/30/23 naproxen 500 mg tablet (Naprosyn) 500 mg PO BID PRN PAIN #20 tabs 10/30/23 acetaminophen 500 mg tablet 500 mg PO Q6H PRN pain #30 tabs 11/05/23 (Tylenol Extra Strength) ibuprofen 600 mg tablet 600 mg PO Q6H PRN pain #30 tabs 11/05/23 lidocaine 5 % topical patch 1 patch topical DAILY #30 ea 11/05/23 (Lidoderm) Allergies Allergy/AdvReac Type Severity Reaction Status Date / Time No Known Allergies Allergy Verified 10/30/23 08:17 Review of Systems Review of Systems: Yes all other systems are reviewed and are negative PMFSH Past Medical History Attestation statement: The following information was validated with the patient. Source: old records reviewed Medical History Asthma Social History Social History Substance Use Type: Marijuana Advance Directives: No Advance Directives Information Provided: No Physical Exam Vital Signs: Vital Signs: Last Vital Signs Temp 97.2 F 11/24/23 19:53 Pulse 105 H 11/24/23 19:53 Resp 20 11/24/23 19:53 BP 130/98 H 11/24/23 19:53 Pulse Ox 96 11/24/23 19:53 O2 Del Method Room Air 11/24/23 19:53 BMI result Body Mass Index 27.1 Appearance: Alert.?Oriented to person, place and time. No acute distress.?Normal affect. Eyes: Pupils equal, round and reactive to light.? ENT: Pharynx normal.?? Neck: Normal inspection.? Neck supple.?? CVS: Heart sounds normal. Normal heart rate and rhythm.? Pulses normal.?? Respiratory: No respiratory distress.? Lung sounds clear to auscultation bilaterally?? Skin: Skin warm and dry.? Normal skin color.? 6 cm linear laceration to the heel of the right foot, superficial, no active bleeding, Extremities: No lower extremity edema. Neuro: Moves all extremities spontaneously. Sensation intact bilaterally. Ambulates with normal steady gait. Medical Decision Making Medical Decision Making [facility] Narrative: Patient is a 38 year old male presents emergency department for evaluation of a laceration to the left foot as per HPI. No active bleeding. Superficial laceration edges well-approximated, amenable to repair with skin adhesive and Steri-Strips after cleansing with Betadine/normal saline. Tdap updated. Full AROM to the foot, sensation intact Differential Diagnosis Differential Diagnoses: The differential diagnosis associated with the presentation includes (Laceration, less likely retained foreign body/ cellulitis. No evidence of neurovascular compromise or uncontrolled bleeding.) External Record Review External record reviewed: Outpatient record Prescription Management I considered prescription management with: Pain Medication (Acetaminophen/ibuprofen) Discharge Plan Discharge Clinical Impression: Laceration Patient Disposition: Home, Self-Care Instructions: Laceration (ED), Skin Adhesive Care (ED) Prescriptions: No Action ondansetron 4 mg tablet,disintegrating 4 mg PO Q8H PRN (Reason: nausea and vomiting) Qty: 7 0RF benzonatate 100 mg capsule 100 mg PO TID PRN (Reason: cough) Qty: 30 0RF ondansetron 4 mg tablet,disintegrating 4 mg PO BEDTIME PRN (Reason: nausea and vomiting) 4 Days Qty: 10 0RF naproxen [Naprosyn] 500 mg tablet 500 mg PO BID PRN (Reason: PAIN) Qty: 20 0RF cephalexin 500 mg capsule 500 mg PO Q8H 7 Days Qty: 21 0RF benzonatate 200 mg capsule 200 mg PO TID PRN (Reason: cough) Qty: 20 0RF ondansetron 4 mg tablet,disintegrating 4 mg PO Q6H PRN (Reason: nausea and vomiting) Qty: 15 0RF ibuprofen 600 mg tablet 600 mg PO Q6H PRN (Reason: pain) Qty: 30 0RF acetaminophen [Tylenol Extra Strength] 500 mg tablet 500 mg PO Q6H PRN (Reason: pain) Qty: 30 0RF lidocaine [Lidoderm] 5 % adhesive patch,medicated 1 patch topical DAILY Qty: 30 0RF Rx Instructions: leave on most painful area for up to 12 hrs Referrals: Harley Abad DO [Primary Care Provider] -
[2023-11-24] MEDS: Diphth,Pertus(ACell),Tet Adult 0.5 ML SYRINGE IM (22:17)
== END 2023-11-24 22:53 | disposition home or self-care (01) ==
PROVIDERS: Emergency Provider Student in an Organized Health Care Education/Training Program; PCP Internal Medicine
DX: S91.312A Laceration without foreign body, left foot, initial encounter (principal); W26.8XXA Contact with other sharp object(s), not elsewhere classified, initial encounter; Y93.E9 Activity, other interior property and clothing maintenance; Y92.019 Unspecified place in single-family (private) house as the place of occurrence of the external cause; Y99.9 Unspecified external cause status; Z23 Encounter for immunization
CPT/HCPCS: 12002; 90471; 90715; 99282; 99284

== ENCOUNTER 2024-03-20 15:25 | Emergency (ER) | payer OTHER, SELFPAY ==
--- NOTE | ~2024-03-20 | XR_ITS ---
EXAMINATION: XR CHEST CLINICAL INFORMATION: Chest pain COMPARISON: Chest x-ray August 17, 2023 TECHNIQUE: 2 views of the chest were obtained. FINDINGS: No significant abnormality is noted involving the heart, lungs, mediastinum, bony thorax or soft tissues. XR/XR chest 2V IMPRESSION: Unremarkable examination.
[2024-03-20 15:34] VITALS: BP 139/92; PULSE 85; RESP 18; TEMP 36.6; O2SAT 99; BMI 23.6
--- NOTE | 2024-03-20 15:34 | ED_ITS ---
HPI - General Adult General Chief complaint: Chest Pain Stated complaint: substance abuse Time Seen by Provider: 03/20/24 17:57 Source: patient Mode of arrival: ambulatory Limitations: no limitations History of Present Illness ED Provider: Roya Brown PA-C HPI narrative: Patient is a 38 year old assigned male at with no reported medical history presenting to the emergency department today with heart palpitations. Patient states that over the last 4 days he has been partying with cocaine and heroin. Patient states that he hasn't been able to sleep well because of it and is having palpitations. Patient denies any dizziness, lightheadedness, abdominal pain, nausea, vomiting, fever, chills, blurry vision, double vision, loss of vision, chest pain, difficulty breathing, shortness of breath, back pain, night sweats, pain with urination, increased urinary frequency, increased urinary urgency, blood in his urine or stool, syncope or a near syncopal episode, recent trauma or falls, bowel incontinence, bladder incontinence, bowel retention, bladder retention, or any other complaints at this time. Onset (ago): day(s) () Relieving factors: none Exacerbating factors: none Associated symptoms: denies other symptoms Treatments prior to arrival: none Related Data Previous Rx's ?Medication ?Instructions ?Recorded benzonatate 100 mg capsule 100 mg PO TID PRN cough #30 caps 11/11/22 ondansetron 4 mg disintegrating 4 mg PO Q8H PRN nausea and 11/11/22 tablet vomiting #7 tabs ondansetron 4 mg disintegrating 4 mg PO BEDTIME PRN nausea and 01/04/23 tablet vomiting 4 days #10 tabs benzonatate 200 mg capsule 200 mg PO TID PRN cough #20 caps 08/17/23 ondansetron 4 mg disintegrating 4 mg PO Q6H PRN nausea and 08/17/23 tablet vomiting #15 tabs cephalexin 500 mg capsule 500 mg PO Q8H 7 days #21 caps 10/30/23 naproxen 500 mg tablet (Naprosyn) 500 mg PO BID PRN PAIN #20 tabs 10/30/23 acetaminophen 500 mg tablet 500 mg PO Q6H PRN pain #30 tabs 11/05/23 (Tylenol Extra Strength) ibuprofen 600 mg tablet 600 mg PO Q6H PRN pain #30 tabs 11/05/23 lidocaine 5 % topical patch 1 patch topical DAILY #30 ea 11/05/23 (Lidoderm) Allergies Allergy/AdvReac Type Severity Reaction Status Date / Time No Known Allergies Allergy Verified 03/20/24 15:36 Review of Systems 2 Constitutional: Constitutional: Reports no additional constitutional complaints, Denies chills, Denies fever(s) and Denies night sweats Eyes: Eyes: Reports no additional eye complaints, Denies blurry vision, Denies change in vision, Denies diplopia, Denies eye discharge, Denies loss of vision and Denies eye pain ENT: Denies dizziness Cardiovascular: Cardiovascular: Reports no additional cardiovascular complaints, Denies chest pain, Denies lightheadedness, Denies Loss of Consciousness, Reports palpitations and Denies dyspnea Respiratory: Respiratory: Reports no additional respiratory complaints and Denies dyspnea Gastrointestinal: Gastrointestinal: Reports no additional gastrointestinal complaints, Denies abdominal pain, Denies melena, Denies hematochezia, Denies change in bowel habits and Denies change in stool character Genitourinary: Genitourinary: Reports no additional male genitourinary complaints, Denies hematuria, Denies oliguria, Denies difficulty urinating, Denies dysuria, Denies urinary frequency, Denies urinary hesitancy, Denies urinary incontinence and Denies urinary urgency Musculoskeletal: Musculoskeletal: Reports no additional musculoskeletal complaints, Denies numbness and Denies tingling Neurologic: Denies dizziness, Denies loss of vision, Denies numbness and Denies tingling Psychiatric: Psychiatric: Reports no additional psychiatric complaints Endocrine: Endocrine: Reports no additional endocrine complaints and Reports palpitations Hematologic/Lymphatic: Hematologic/Lymphatic: Reports no additional hematologic/lymphatic complaints Allergic/Immunologic: Allergic/Immunologic: Reports no additional allergic/immunologic complaints [facility] Past Medical History Attestation statement: The following information was validated with the patient. Source: old records reviewed and nursing notes reviewed Medical History Asthma Social History Social History Substance Use Type: Marijuana Advance Directives: No Advance Directives Information Provided: No Do you have a plan to hurt others: No Plan Physical Exam ED Vital Signs: Vital Signs - 24 hr 03/20/24 15:34 Temperature 97.9 F Pulse Rate 85 Respiratory Rate 18 Blood Pressure 139/92 H Pulse Oximetry 99 Oxygen Delivery Method Room Air BMI result Body Mass Index 23.6 Const General: cooperative, no acute distress, alert and awake Nutritional Appearance: well nourished Orientation/consciousness: patient oriented x3 Limitations: no limitations HENMT Head: Yes normal to inspection and Yes atraumatic Ears: hearing grossly normal bilaterally and external ears normal General nose exam: Normal external nose present, no nasal discharge noted and no epistaxis Face and sinus: Yes normal facial exam, No abrasion and No laceration Mouth: Normal oral and palatal mucosa present, no drooling and no muffled voice Eyes General: appearance normal, both eyes and all related structures Periorbital: periorbital findings normal Eyelids: Yes eyelids normal Conjunctivae: conjunctivae normal Pupils: Equal, round and reactive pupils present EOM: EOMs intact bilaterally Neck Neck: Yes normal visual inspection, Yes full ROM and Yes no lymphadenopathy Chest Chest palpation & inspection: normal inspection of the chest Resp Effort & Inspection: normal respiratory effort and able to speak in complete sentences GI Inspection: Yes normal to inspection Neuro General: patient oriented x3 and moves all extremities Cranial nerves: Yes Equal, round and reactive pupils present Cognition (Neuro): normal cognition Motor exam (neuro): 5/5 motor strength present throughout Sensory Exam: Normal double simultaneous stimulation for sensation Coordination: [id number] test normal Extrem General: Yes normal to inspection, Yes full ROM and Yes capillary refill normal Psych Appearance: grossly normal Mental Status: mental status grossly normal Affect: normal affect Attitude: cooperative Thought process: Normal thought process present Thought content: Normal thought content present Insight: Good insight present (Psych) Course Course Course Narrative: RME performed by Roya Brown PA-C. Patient is a 38 year old assigned male at presenting to the emergency department with palpitations. Patient states that he was using cocaine and heroin while partying over the last few days and now he is feeling generally unwell with palpitations. Detailed physical exam and review of systems are deferred to the manager primary care. EKG, labs, imaging, and swabs ordered. Patient placed back in the waiting room pending room availability and results. Medical Decision Making Medical Decision Making MDM Narrative: Patient is a 38 year old assigned male at with no reported medical history presenting to the emergency department today with palpitations. Patient's limited physical exam performed in triage was unremarkable. Patient's blood work was unremarkable. Patient's EKG was unremarkable. Patient's chest x-ray showed no acute process. Patient left the department without completing treatment. Patient left the department before myself or any of the other emergency department clinicians could explain to or review with the patient; physical exam findings, test results, need or lack there of for additional testing, need or lack there of for a procedure to be performed, need or lack there of for hospital admission / transfer, need or lack there of for prescription medication, treatment options, or a treatment plan. Differential Diagnosis Differential Diagnoses: The differential diagnosis associated with the presentation includes Palpitations Drug use Polysubstance abuse Anxiety Admission/Observation Consideration of admission/observation: Escalation of care including admission/observation considered Patient would have been admitted to the hospital had he completed his work up and it had any findings where hospital admission was appropriate, his clinical presentation warranted hospital admission, had myself or any other emergency supervisor fabrication department had the ability to discuss need or lack there of for hospital admission, and the patient hadn't left the department without completing treatment. Lab Data [facility] Lab Attestation statement: I reviewed the patient's lab results. My interpretation of these results are in the [facility] Rationale portion of this note. 03/20/24 15:45 03/20/24 15:45 Labs: Lab Results 03/20/24 Range/Units 15:45 WBC 7.1 (4.8-10.8) X10*3/uL RBC 4.63 (4.60-5.80) X10*6/uL Hgb 14.3 D (14.0-18.0) g/dl Hct 41.1 L (42.0-52.0) % MCV 88.8 (80.0-98.0) fL MCH 30.9 (27.0-33.0) pg MCHC 34.8 (31.0-36.0) g/dl RDW 13.9 (11.0-16.0) % Plt Count 352 D (160-400) X10*3/uL MPV 8.9 L (9.4-12.4) fL Immature Gran % (Auto) 0.3 (0.0-0.4) % Neut % (Auto) 72.9 (45-73) % Lymph % (Auto) 19.3 L (20-40) % [place] % (Auto) 7.2 (2-11) % Eos % (Auto) 0.0 (0-4) % Baso % (Auto) 0.3 (0-2) % Lymph # (Auto) 1.4 (1.2-4.9) X10*3/uL [place] # (Auto) 0.5 (0.1-1.2) X10*3/uL Eos # (Auto) 0.0 (0.0-0.4) X10*3/uL Baso # (Auto) 0.0 (0.0-0.2) X10*3/uL Abs Immat Gran (auto) 0.02 (0.00-0.03) X10*3/uL Absolute Neuts (auto) 5.2 (2.0-8.3) x10*3/uL Absolute Nucleated RBC 0.000 (0.0-0.012) X10*3/uL Nucleated RBC % (auto) 0.0 (0.0-0.2) /100WBC PT 13.9 H D (11.1-13.3) SEC INR 1.1 (0.9-1.1) APTT 29.9 (26.0-36.8) SEC Sodium 138 (135-145) mmol/L Potassium 3.4 (3.3-5.1) mmol/L Chloride 104 (96-108) mmol/L Carbon Dioxide 25 (22-29) mmol/L Anion Gap 12 (12-20) BUN 10 (9-16) mg/dL Creatinine 0.79 (0.5-1.4) mg/dL Estim Creat Clear Calc 136.4 Estimated GFR > 60 Random Glucose 114 (60-115) mg/dL Calcium 9.7 D (8.4-10.2) mg/dL Magnesium 2.1 (1.6-2.6) mg/dL Total Bilirubin 0.5 (0.0-1.0) mg/dL AST 11 (5-37) U/L ALT 11 (0-40) U/L Alkaline Phosphatase 76 (39-117) U/L Troponin I High Sens < 2.7 (<3.5-35.0) ng/L Total Protein 8.5 H (6.5-8.0) g/dL Albumin 4.6 (3.5-5.0) g/dL Influenza Type A (PCR) NEGATIVE (Negative) Influenza Type B (PCR) NEGATIVE (Negative) RSV RNA Qual (PCR) NEGATIVE (Negative) SARS-CoV-2 RNA (RT-PCR) NEGATIVE (Negative) Independent Interpretation I performed an independent interpretation of an: EKG and Plain X-Ray Interpretation: My interpretation is in agreement with the radiologist's impression of this imaging study. - EXAMINATION: XR CHEST CLINICAL INFORMATION: Chest pain COMPARISON: Chest x-ray August 17, 2023 TECHNIQUE: 2 views of the chest were obtained. FINDINGS: No significant abnormality is noted involving the heart, lungs, mediastinum, bony thorax or soft tissues. XR/XR chest 2V IMPRESSION: Unremarkable examination. Dictated By: Rakan Toro MD Signed By: Electronically signed by Rakan Toro MD 03/20/24 1626 - Vent. Rate: 076 BPM Atrial Rate: 076 BPM P-R Int: 142 ms QRS Dur: 088 ms QT Int: 400 ms P-R-T Axes: 029 030 027 degrees QTc Int: 450 ms Normal sinus rhythm with sinus arrhythmia Minimal voltage criteria for LVH, may be normal variant (Sokolow-Hameed) Borderline ECG When compared with ECG of 15-NOV-2022 16:46, No significant change was found DD/ 1537 Radiology Impression Discussion of test interpretation with radiology: I have reviewed the radiologist's reading. Discharge Plan Discharge Clinical Impression: Heart palpitations Patient Disposition: Left W/O Completing Treatment Prescriptions: No Action ondansetron 4 mg tablet,disintegrating 4 mg PO Q8H PRN (Reason: nausea and vomiting) Qty: 7 0RF benzonatate 100 mg capsule 100 mg PO TID PRN (Reason: cough) Qty: 30 0RF ondansetron 4 mg tablet,disintegrating 4 mg PO BEDTIME PRN (Reason: nausea and vomiting) 4 Days Qty: 10 0RF naproxen [Naprosyn] 500 mg tablet 500 mg PO BID PRN (Reason: PAIN) Qty: 20 0RF cephalexin 500 mg capsule 500 mg PO Q8H 7 Days Qty: 21 0RF benzonatate 200 mg capsule 200 mg PO TID PRN (Reason: cough) Qty: 20 0RF ondansetron 4 mg tablet,disintegrating 4 mg PO Q6H PRN (Reason: nausea and vomiting) Qty: 15 0RF ibuprofen 600 mg tablet 600 mg PO Q6H PRN (Reason: pain) Qty: 30 0RF acetaminophen [Tylenol Extra Strength] 500 mg tablet 500 mg PO Q6H PRN (Reason: pain) Qty: 30 0RF lidocaine [Lidoderm] 5 % adhesive patch,medicated 1 patch topical DAILY Qty: 30 0RF Rx Instructions: leave on most painful area for up to 12 hrs Discharge Date/Time: 03/20/24 18:14
--- NOTE | 2024-03-20 15:35 | ECG_ITS ---
Test Reason : CHEST PAIN Blood Pressure : / mmHG Vent. Rate : 076 BPM Atrial Rate : 076 BPM P-R Int : 142 ms QRS Dur : 088 ms QT Int : 400 ms P-R-T Axes : 029 030 027 degrees QTc Int : 450 ms Normal sinus rhythm with sinus arrhythmia Minimal voltage criteria for LVH, may be normal variant ( Sokolow-Hameed ) Borderline ECG When compared with ECG of 15-NOV-2022 16:46, No significant change was found Referred By: Roya Brown Electronically Signed By:FALGUNI FERRIS
[2024-03-20 15:52] LABS: MANUAL DIFF FLAG NO
[2024-03-20 15:54] LABS: Basophils Percent Auto 0.3 % (0-2); Hematocrit 41.1 % (42.0-52.0); Hemoglobin 14.3 g/dl (14.0-18.0); Imm Gran Abs Auto 0.02 X10*3/uL (0.00-0.03); Imm Gran Pct Auto 0.3 % (0.0-0.4); Lymphocytes Absolute Auto 1.4 X10*3/uL (1.2-4.9); Lymphocytes Percent Auto 19.3 % (20-40); Mean Corpuscular HGB Conc 34.8 g/dl (31.0-36.0); Mean Corpuscular Hemoglobin 30.9 pg (27.0-33.0); Mean Corpuscular Volume 88.8 fL (80.0-98.0); Mean Platelet Volume 8.9 fL (9.4-12.4); Monocytes Absolute Auto 0.5 X10*3/uL (0.1-1.2); Monocytes Percent Auto 7.2 % (2-11); Neutrophils Absolute Auto 5.2 x10*3/uL (2.0-8.3); Neutrophils Percent Auto 72.9 % (45-73); Platelet Count 352 X10*3/uL (160-400); Red Blood Count 4.63 X10*6/uL (4.60-5.80); Red Cell Distribution Width 13.9 % (11.0-16.0); White Blood Count 7.1 X10*3/uL (4.8-10.8)
[2024-03-20 16:08] LABS: INTERNATIONAL NORM RATIO 1.1 (0.9-1.1); Prothrombin Time 13.9 SEC (11.1-13.3)
[2024-03-20 16:10] LABS: Alanine Aminotransferase 11 U/L (0-40); Albumin Level 4.6 g/dL (3.5-5.0); Alkaline Phosphatase 76 U/L (39-117); Anion Gap 12 (12-20); Aspartate Amino Transferase 11 U/L (5-37); Bilirubin Total 0.5 mg/dL (0.0-1.0); Blood Urea Nitrogen 10 mg/dL (9-16); Calcium 9.7 mg/dL (8.4-10.2); Carbon Dioxide 25 mmol/L (22-29); Chloride 104 mmol/L (96-108); Creatinine Clr Calc Pharmacy 136.4; Estimated Glomerular Filt Rate > 60; Glucose Random 114 mg/dL (60-115); Magnesium 2.1 mg/dL (1.6-2.6); Partial Thromboplastin Time 29.9 SEC (26.0-36.8); Potassium 3.4 mmol/L (3.3-5.1); Sodium 138 mmol/L (135-145); Total Protein 8.5 g/dL (6.5-8.0)
[2024-03-20 16:15] LABS: Troponin-I High Sensitivity < 2.7 ng/L (<3.5-35.0)
[2024-03-20 16:33] LABS: Influenza A PCR NEGATIVE (Negative); Influenza B PCR NEGATIVE (Negative); Resp Syncy Virus RNA Qual PCR NEGATIVE (Negative); SARS COV2 PCR INHOUSE NEGATIVE (Negative)
== END 2024-03-20 18:14 | disposition left against medical advice (07) ==
LOC: HO.ED 18:07
PROVIDERS: Physician Assistant Medical; Emergency Provider Emergency Medicine
DX: R00.2 Palpitations (principal); R07.9 Chest pain, unspecified; Z03.818 Encounter for observation for suspected exposure to other biological agents ruled out
CPT/HCPCS: 0241U; 36415; 71046; 80053; 83735; 84484; 85025; 85610; 85730; 93005; 99283

== ENCOUNTER → 2024-03-20 15:35 | Outpatient (BNV) | payer OTHER, SELFPAY | PROVIDERS: Emergency Provider Emergency Medicine; Visit Provider Internal Medicine | DX: I49.9 Cardiac arrhythmia, unspecified (principal) | CPT/HCPCS: 93010 ==

== ENCOUNTER 2024-05-22 15:55 | Emergency (ER) | payer OTHER, SELFPAY ==
--- NOTE | ~2024-05-22 | CT_ITS ---
EXAMINATION: CT head/brain wo IV con CLINICAL INFORMATION: Reason for Exam headache s/p head injury COMPARISON: None. TECHNIQUE: Contiguous axial imaging was performed from the skull base to vertex without intravenous contrast. Sagittal and coronal reformatted images were obtained. This CT examination was performed using dose optimization techniques as appropriate, variously including the following: * Automated exposure control * Adjustment of mA and/or kV according to patient size (this includes techniques or standardized protocols for targeted exams where dose is matched to indication/reason for exam; i.e. extremities or head) Use of iterative reconstruction technique DLP: 652 mGy-cm FINDINGS: No acute osseous or soft tissue abnormality. The mastoid air cells and visualized portions of the paranasal sinuses are well aerated. There is no evidence of acute intracranial hemorrhage or territorial infarction. No abnormal mass effect or midline shift is seen. Pappas to white matter differentiation is well preserved. No extra-axial fluid collections are identified. No hydrocephalus. No significant volume loss. There is no abnormal attenuation within the brain parenchyma. CT/CT head/brain wo IV con IMPRESSION: No acute intracranial abnormality including hemorrhage, mass effect, hydrocephalus, or acute territorial edematous infarction.
[2024-05-22 16:14] VITALS: BP 141/109; PULSE 110; RESP 16; TEMP 36.8; O2SAT 94; BMI 25.4
--- NOTE | 2024-05-22 16:15 | ED_ITS ---
HPI - Head Injury General Chief complaint: Head Injury Stated complaint: Head inj Time Seen by Provider: 05/22/24 20:05 Source: patient Mode of arrival: ambulatory Limitations: no limitations History of Present Illness ED Provider: Jese León PA-C HPI Narrative: 38 yo male presents to the ER for evaluation of an 06/02 headache after hitting his head at a laundromat yesterday. he struck the top of his head on a machine when he stood up from kneeling. no loc. not on anticoagulation. developed headache today in the frontal portion where he hit his head. wants to make sure there is no bleeding in his head. he reports a bump and a small cut where he hit, but the bump was bigger yesterday. no lethargy, confusion, vomiting, amnesia. MD Complaint: head injury Onset (ago): day(s) (1) Place: other Loss of Consciousness: no Location of injury: frontal Severity: severe Severity scale (1-10): 8 Quality: aching Radiation: none Other Injuries: none Associated symptoms: denies other symptoms Related Data Previous Rx's ?Medication ?Instructions ?Recorded benzonatate 100 mg capsule 100 mg PO TID PRN cough #30 caps 11/11/22 ondansetron 4 mg disintegrating 4 mg PO Q8H PRN nausea and 11/11/22 tablet vomiting #7 tabs ondansetron 4 mg disintegrating 4 mg PO BEDTIME PRN nausea and 01/04/23 tablet vomiting 4 days #10 tabs benzonatate 200 mg capsule 200 mg PO TID PRN cough #20 caps 08/17/23 ondansetron 4 mg disintegrating 4 mg PO Q6H PRN nausea and 08/17/23 tablet vomiting #15 tabs cephalexin 500 mg capsule 500 mg PO Q8H 7 days #21 caps 10/30/23 naproxen 500 mg tablet (Naprosyn) 500 mg PO BID PRN PAIN #20 tabs 10/30/23 acetaminophen 500 mg tablet 500 mg PO Q6H PRN pain #30 tabs 11/05/23 (Tylenol Extra Strength) ibuprofen 600 mg tablet 600 mg PO Q6H PRN pain #30 tabs 11/05/23 lidocaine 5 % topical patch 1 patch topical DAILY #30 ea 11/05/23 (Lidoderm) Allergies Allergy/AdvReac Type Severity Reaction Status Date / Time No Known Allergies Allergy Verified 05/22/24 16:17 Review of Systems Review of Systems: Yes all other systems are reviewed and are negative [facility], [facility] Past Medical History Medical History Asthma Social History Social History Substance Use Type: Marijuana Advance Directives: No Advance Directives Information Provided: No Physical Exam Vital Signs: Vital Signs: Last Vital Signs Temp 97.6 F 05/22/24 20:09 Pulse 90 05/22/24 20:09 Resp 18 05/22/24 20:09 BP 115/84 05/22/24 20:09 Pulse Ox 97 05/22/24 20:09 O2 Del Method Room Air 05/22/24 20:09 BMI result Body Mass Index 25.4 Appearance: Alert. Oriented X3. No acute distress. Head: normocephalic, right ftonal area there is a approx 3cm area of swelling and tenderness, <1cm superficial abrasion, no bleeding, no skull depressions or crepitus. Eyes: Pupils equal, round and reactive to light. EOMI ENT: Pharynx normal. No tonsillar swelling or exudate. Normal TMs bilaterally. Neck: Normal inspection. Neck supple. No c-spine tenderness. CVS: Normal heart rate and rhythm. Pulses normal. Respiratory: No respiratory distress. Breath sounds normal. Skin: Skin warm and dry. Normal skin color. Normal skin turgor. No rashes. Extremities: No lower extremity edema. No joint swelling. Neuro/psych: Oriented X 3. No motor deficit. No sensory deficit. CN II-XII i ntact. Normal speech and cognition. Steady gait Medical Decision Making Medical Decision Making MDM Narrative: 38 yo male presenting with headache s/p head injury yesterday. neurologically intact. vss. superficial lac on the scalp without need for repair. CT head was done that was normal overall swelling and headache are improved with ice. he was counseled on head injury and precautions. stable for d/c home with supportive care Differential Diagnosis Differential Diagnoses: The differential diagnosis associated with the presentation includes concussion, closed head injury, epidural hematoma, SAH, skull fracture Independent Interpretation I performed an independent interpretation of an: CT Scan Interpretation: no acute intracranial bleed or edema Radiology Impression Discussion of test interpretation with radiology: I have reviewed the radiologis t's reading. Radiologist Impression: EXAMINATION: CT head/brain wo IV con CLINICAL INFORMATION: Reason for Exam headache s/p head injury COMPARISON: None. TECHNIQUE: Contiguous axial imaging was performed from the skull base to vertex without intravenous contrast. Sagittal and coronal reformatted images were obtained. This CT examination was performed using dose optimization techniques as appropriate, variously including the following: * Automated exposure control * Adjustment of mA and/or kV according to patient size (this includes techniques or standardized protocols for targeted exams where dose is matched to indication/reason for exam; i.e. extremities or head) Use of iterative reconstruction technique DLP: 652 mGy-cm FINDINGS: No acute osseous or soft tissue abnormality. The mastoid air cells and visualized portions of the paranasal sinuses are well aerated. There is no evidence of acute intracranial hemorrhage or territorial infarction. No abnormal mass effect or midline shift is seen. Pappas to white matter differentiation is well preserved. No extra-axial fluid collections are identified. No hydrocephalus. No significant volume loss. There is no abnormal attenuation within the brain parenchyma. CT/CT head/brain wo IV con IMPRESSION: No acute intracranial abnormality including hemorrhage, mass effect, hydrocephalus, or acute territorial edematous infarction. External Record Review External record reviewed: Outpatient record, Prior outpatient labs and Prior outpatient radiology Prescription Management I considered prescription management with: Pain Medication Critical Care Time Critical Care Time Critical Care Time: No Discharge Plan Discharge Clinical Impression: Closed head injury Patient Disposition: Home, Self-Care Instructions: Head Injury (ED) Additional Instructions: your CT scan was normal you may have a mild concussion rest. drink plenty of fluids avoid strenuous activities and screen time. allow your body and brain to rest take motrin and tylenol for headache follow up with your doctor. If you develop new or worsening symptoms call 911 or come back to the ER for further evaluation. Prescriptions: No Action ondansetron 4 mg tablet,disintegrating 4 mg PO Q8H PRN (Reason: nausea and vomiting) Qty: 7 0RF benzonatate 100 mg capsule 100 mg PO TID PRN (Reason: cough) Qty: 30 0RF ondansetron 4 mg tablet,disintegrating 4 mg PO BEDTIME PRN (Reason: nausea and vomiting) 4 Days Qty: 10 0RF naproxen [Naprosyn] 500 mg tablet 500 mg PO BID PRN (Reason: PAIN) Qty: 20 0RF cephalexin 500 mg capsule 500 mg PO Q8H 7 Days Qty: 21 0RF benzonatate 200 mg capsule 200 mg PO TID PRN (Reason: cough) Qty: 20 0RF ondansetron 4 mg tablet,disintegrating 4 mg PO Q6H PRN (Reason: nausea and vomiting) Qty: 15 0RF ibuprofen 600 mg tablet 600 mg PO Q6H PRN (Reason: pain) Qty: 30 0RF acetaminophen [Tylenol Extra Strength] 500 mg tablet 500 mg PO Q6H PRN (Reason: pain) Qty: 30 0RF lidocaine [Lidoderm] 5 % adhesive patch,medicated 1 patch topical DAILY Qty: 30 0RF Rx Instructions: leave on most painful area for up to 12 hrs Referrals: Harley Abad DO [Primary Care Provider] - Interventions: ED Discharge Assessment Last Done: 05/22/24 20:09 Discharge Date/Time: 05/22/24 20:11 Print Language: Somali
[2024-05-22 19:53] VITALS: BP 115/84; PULSE 90; RESP 18; TEMP 36.4; O2SAT 97
[2024-05-22 20:09] VITALS: BP 115/84; PULSE 90; RESP 18; TEMP 36.4; O2SAT 97
== END 2024-05-22 20:11 | disposition home or self-care (01) ==
LOC: HO.ED 20:10
PROVIDERS: Emergency Provider Emergency Medicine; PCP Internal Medicine
DX: S09.90XA Unspecified injury of head, initial encounter (principal); R51.9 Headache, unspecified; Y29.XXXA Contact with blunt object, undetermined intent, initial encounter; Y93.89 Activity, other specified; Y92.89 Other specified places as the place of occurrence of the external cause; Y99.8 Other external cause status
CPT/HCPCS: 70450; 99282; 99284

== ENCOUNTER 2024-08-16 10:49 | Inpatient (IN) | payer OTHER, SELFPAY ==
[2024-08-16] VITALS (12 sets, daily range): BP systolic 113–148; BP diastolic 68–80; PULSE 79–103; RESP 14–20; TEMP 36.1–36.8; O2SAT 90–98; BMI 27.2
--- NOTE | 2024-08-16 | ECG_ITS ---
Test Reason : PROLONGED QT Blood Pressure : / mmHG Vent. Rate : 084 BPM Atrial Rate : 084 BPM P-R Int : 164 ms QRS Dur : 084 ms QT Int : 414 ms P-R-T Axes : 048 020 014 degrees QTc Int : 489 ms Normal sinus rhythm Prolonged QT Abnormal ECG When compared with ECG of 20-MAR-2024 15:37, No significant change was found Referred By: Gilda William Electronically Signed By:Ismael Frank
--- NOTE | ~2024-08-16 | XR_ITS ---
EXAMINATION: XR CHEST 2 VIEW CLINICAL INFORMATION: Shortness of breath COMPARISON: 02/29/2024 TECHNIQUE: PA and lateral views of the chest obtained. FINDINGS: On the lateral radiograph, there are airspace opacities in the posterior inferior chest, probably in the left lower lobe. The right lung is clear. There are no pleural effusions. The cardiomediastinal silhouette is normal. XR/XR chest 2V IMPRESSION: Left lower lobe pneumonia. Follow-up is recommended to confirm clearing. Electronically signed by: Jewel Rahman MD 08/16/2024 12:05 PM EDT
--- NOTE | 2024-08-16 11:00 | ED_ITS ---
HPI - General Adult General Chief complaint: Upper Respiratory Symptoms Stated complaint: Flu symptoms Time Seen by Provider: 08/16/24 11:16 Source: patient Mode of arrival: ambulatory Limitations: no limitations History of Present Illness ED Provider: LEONELA HPI narrative: 39 yo male with PMH of asthma but has not used and inhaler in decades, quit smoking 2 months ago, occasionally sniffs drugs but no IVDA who notes that he has had cough, headaches, sore throat and some dyspnea going up the stairs x 3 days. Everyone in the house is sick. No recent travel. He came today as his body hurt and he had a worse headache. He didn't know that his breathing was that bad but it has been increasingly worse when he goes up the stairs. He has no chest pain. No OTC medications today. On arrival RA 90%. MD complaint: URI Onset (ago): day(s) (3) Location: chest Radiation: non-radiation Severity: moderate Relieving factors: immobilization Exacerbating factors: other (exertion) Associated symptoms: cough, fever/chills, headaches, loss of appetite, malaise and shortness of breath Treatments prior to arrival: none Related Data Previous Rx's ?Medication ?Instructions ?Recorded benzonatate 100 mg capsule 100 mg PO TID PRN cough #30 caps 11/11/22 ondansetron 4 mg disintegrating 4 mg PO Q8H PRN nausea and 11/11/22 tablet vomiting #7 tabs ondansetron 4 mg disintegrating 4 mg PO BEDTIME PRN nausea and 01/04/23 tablet vomiting 4 days #10 tabs benzonatate 200 mg capsule 200 mg PO TID PRN cough #20 caps 08/17/23 ondansetron 4 mg disintegrating 4 mg PO Q6H PRN nausea and 08/17/23 tablet vomiting #15 tabs cephalexin 500 mg capsule 500 mg PO Q8H 7 days #21 caps 10/30/23 naproxen 500 mg tablet (Naprosyn) 500 mg PO BID PRN PAIN #20 tabs 10/30/23 acetaminophen 500 mg tablet 500 mg PO Q6H PRN pain #30 tabs 11/05/23 (Tylenol Extra Strength) ibuprofen 600 mg tablet 600 mg PO Q6H PRN pain #30 tabs 11/05/23 lidocaine 5 % topical patch 1 patch topical DAILY #30 ea 11/05/23 (Lidoderm) Allergies Allergy/AdvReac Type Severity Reaction Status Date / Time No Known Allergies Allergy Verified 08/16/24 11:02 Review of Systems 2 Review of Systems: Constitutional : No Fever, pos Chills ENT/Mouth : No Hoarseness, pos sore throat, pos Rhinorrhea Eyes: No Redness, No Discharge, No Vision Changes Cardiovascular : No Chest Pain, positive SOB, positive Dyspnea on Exertion, No Edema Respiratory : positive Cough, pos Sputum, positive Wheezing, Gastrointestinal : No Nausea, No Vomiting, No Diarrhea, No abdominal Pain Genitourinary : No Dysuria, No Hematuria Musculoskeletal : No joint pain, No Myalgias Skin : No rash Neuro : pos Weakness, No Numbness, pos Headache Psych : No anxiety, depression Heme/Lymph: No Bruising, No Bleeding Endocrine : No Polyuria, No Polydipsia All other systems reviewed and are negative [facility] Past Medical History Attestation statement: The following information was validated with the patient. Source: old records reviewed Medical History Asthma Social History Social History Patient Tobacco Use Status: Former Tobacco user Smoked in Last 30 Days: No Use of substances other than those prescribed or required for medical reasons: No Substance Use Type: Marijuana Advance Directives: No Advance Directives Information Provided: Yes Do you have a plan to hurt others: No Plan Nutrition Risks: No Nutritional Risk Physical Exam ED Vital Signs: Vital Signs - 24 hr 08/16/24 10:59 08/16/24 11:27 08/16/24 12:06 Temperature 97.6 F 97.8 F Pulse Rate 99 88 Respiratory Rate 20 16 Blood Pressure 115/76 122/75 Pulse Oximetry 90 L 94 93 Oxygen Delivery Method Room Air Nasal Cannula Nasal Cannula Oxygen Flow Rate 2 08/16/24 12:41 08/16/24 12:42 Temperature Pulse Rate 79 Respiratory Rate 14 Blood Pressure Pulse Oximetry 91 L Oxygen Delivery Method Nasal Cannula Oxygen Flow Rate 2 BMI result Body Mass Index 27.2 Appearance: Alert. Oriented X3. No acute distress. Eyes: Pupils equal, round and reactive to light. ENT: Pharynx normal. Neck: Normal inspection. Neck supple. CVS: Normal heart rate and rhythm. Pulses normal. Respiratory: No respiratory distress. Breath sounds diminished throughout no wheezes heard has LL crackles Abdomen: Soft and nontender. Skin: Skin warm and dry. Normal skin color. Normal skin turgor. Extremities: No lower extremity edema. No calf ttp Neuro: Oriented X 3. No motor deficit. No sensory deficit. Course Course Course Narrative: RME, this is a rapid medical exam performed by Chance Stephenson please refer to primary provider for complete H&P- 39-year-old male presents for evaluation of flu-like symptoms including sore throat, headache, fevers, chills. Plan for viral swabs, strep throat swab. Patient was found to be hypoxic in his low as 88/89% in triage, plan for labs, chest x-ray as well. Medications Administered Generic Name Dose Route Start Last Admin Trade Name Freq PRN Reason Stop Dose Admin Azithromycin 500 mg/ Sodium 250 mls @ 125 mls/hr 08/16/24 12:11 08/16/24 12:39 Chloride IV 08/16/24 14:10 125 mls/hr ONCE ONE Administration Discontinued Medications Generic Name Dose Route Start Last Admin Trade Name Freq PRN Reason Stop Dose Admin Acetaminophen 975 mg 08/16/24 11:35 08/16/24 11:53 Acetaminophen 325 Mg Tablet PO 08/16/24 11:36 975 mg ONCE ONE Administration Albuterol Sulfate 5 mg 08/16/24 12:34 08/16/24 12:40 Albuterol Sulfate (0.083%) 2.5 Mg/3 Ml Vial.Neb INHALE 08/16/24 12:35 5 mg ONCE ONE Administration Ceftriaxone Sodium 1 gm 08/16/24 11:38 08/16/24 12:00 Ceftriaxone Sodium 1 Gm Vial IVPUSH 08/16/24 11:39 1 gm ONCE ONE Administration Ketorolac Tromethamine 15 mg 08/16/24 11:35 08/16/24 11:53 Ketorolac Tromethamine 15 Mg/Ml Vial IVPUSH 08/16/24 11:36 15 mg ONCE ONE Administration Methylprednisolone Sodium Succinate 60 mg 08/16/24 11:35 08/16/24 11:53 Methylprednisolone Sod Succ 125 Mg/2 Ml Vial IVPUSH 08/16/24 11:36 60 mg ONCE ONE Administration Medical Decision Making Medical Decision Making MDM Narrative: 39 yo male with PMH of asthma but has not used and inhaler in decades, quit smoking 2 months ago here with URI symptoms and hypoxia. He has no chest pain at this time will need basic labs, EKG, CXR, start steroids/nebs and empiric ceftriaxone. Suspect URI, viral syndrome, pneumonia Differential Diagnosis Differential Diagnoses: The differential diagnosis associated with the presentation includes URI, viral syndrome, pneumonia Admission/Observation Consideration of admission/observation: Escalation of care including admission/observation considered given degree of hypoxia will need admission desats to high 80s off O2 Consult Healthcare Provider Management of the patient was discussed with: Hospitalist will admit Lab Data MDM Lab Attestation statement: I reviewed the patient's lab results. 08/16/24 11:12 08/16/24 11:12 Labs: Lab Results 08/16/24 08/16/24 08/16/24 Range/Units 11:12 11:36 11:38 WBC 13.4 H (4.8-10.8) X10*3/uL RBC 4.04 L (4.60-5.80) X10*6/uL Hgb 12.5 L (14.0-18.0) g/dl Hct 36.4 L (42.0-52.0) % MCV 90.1 (80.0-98.0) fL MCH 30.9 (27.0-33.0) pg MCHC 34.3 (31.0-36.0) g/dl RDW 13.6 (11.0-16.0) % Plt Count 252 D (160-400) X10*3/uL MPV 9.1 L (9.4-12.4) fL Immature Gran % (Auto) 0.3 (0.0-0.4) % Neut % (Auto) 74.6 H (45-73) % Lymph % (Auto) 7.8 L (20-40) % [place] % (Auto) 15.7 H (2-11) % Eos % (Auto) 1.3 (0-4) % Baso % (Auto) 0.3 (0-2) % Lymph # (Auto) 1.1 L (1.2-4.9) X10*3/uL [place] # (Auto) 2.1 H (0.1-1.2) X10*3/uL Eos # (Auto) 0.2 (0.0-0.4) X10*3/uL Baso # (Auto) 0.0 (0.0-0.2) X10*3/uL Abs Immat Gran (auto) 0.04 H (0.00-0.03) X10*3/uL Absolute Neuts (auto) 10.0 H (2.0-8.3) x10*3/uL Absolute Nucleated RBC 0.000 (0.0-0.012) X10*3/uL Nucleated RBC % (auto) 0.0 (0.0-0.2) /100WBC Smear Tech's Comments VERIFIED PT 12.5 H (10.9-12.4) SEC INR 1.1 (0.9-1.1) Sodium 138 (135-145) mmol/L Potassium 3.9 (3.3-5.1) mmol/L Chloride 100 (96-108) mmol/L Carbon Dioxide 29 (22-29) mmol/L Anion Gap 13 (12-20) BUN 14 (9-16) mg/dL Creatinine 0.81 (0.5-1.4) mg/dL Estim Creat Clear Calc 131.7 Estimated GFR > 60 Random Glucose 116 H (60-115) mg/dL Lactic Acid 0.8 (0.5-2.0) mmol/L Calcium 9.6 (8.4-10.2) mg/dL C-Reactive Protein 21.69 H (< or = 0.50) mg/dL Procalcitonin 0.17 ng/mL Influenza Type A (PCR) NEGATIVE (Negative) Influenza Type B (PCR) NEGATIVE (Negative) RSV RNA Qual (PCR) NEGATIVE (Negative) SARS-CoV-2 RNA (RT-PCR) NEGATIVE (Negative) Independent Interpretation I performed an independent interpretation of an: EKG and Plain X-Ray (LLL opacity) Interpretation: Rate: 84 Rhythm: NSR [place]: normal Normal P waves. Normal PATRICK. Normal QRS complex. ST T wave : no AJ, inverted t wave III qTC: 489 prior studies: no acute ischemia, qtc prolonged The study has been interpreted contemporaneously by me. . Radiology Impression Discussion of test interpretation with radiology: I have reviewed the radiologist's reading. Discharge Plan Discharge Clinical Impression: Hypoxia Pneumonia Qualifiers: Pneumonia type: due to unspecified organism Laterality: left Lung location: l ower lobe of lung Qualified Code(s): J18.9 - Pneumonia, unspecified organism Elevated WBC count Qualifiers: Leukocytosis type: unspecified Qualified Code(s): D72.829 - Elevated white blood cell count, unspecified Patient Disposition: Admitted As Inpatient
[2024-08-16 11:36] LABS: Basophils Percent Auto 0.3 % (0-2); Eosinophils Absolute Auto 0.2 X10*3/uL (0.0-0.4); Eosinophils Percent Auto 1.3 % (0-4); Hematocrit 36.4 % (42.0-52.0); Hemoglobin 12.5 g/dl (14.0-18.0); Imm Gran Abs Auto 0.04 X10*3/uL (0.00-0.03); Imm Gran Pct Auto 0.3 % (0.0-0.4); Lymphocytes Absolute Auto 1.1 X10*3/uL (1.2-4.9); Lymphocytes Percent Auto 7.8 % (20-40); MANUAL DIFF FLAG SCAN; Mean Corpuscular HGB Conc 34.3 g/dl (31.0-36.0); Mean Corpuscular Hemoglobin 30.9 pg (27.0-33.0); Mean Corpuscular Volume 90.1 fL (80.0-98.0); Mean Platelet Volume 9.1 fL (9.4-12.4); Monocytes Absolute Auto 2.1 X10*3/uL (0.1-1.2); Monocytes Percent Auto 15.7 % (2-11); Neutrophils Percent Auto 74.6 % (45-73); Platelet Count 252 X10*3/uL (160-400); Red Blood Count 4.04 X10*6/uL (4.60-5.80); Red Cell Distribution Width 13.6 % (11.0-16.0); SCAN SMEAR FLAG 1; White Blood Count 13.4 X10*3/uL (4.8-10.8)
[2024-08-16 11:49] LABS: INTERNATIONAL NORM RATIO 1.1 (0.9-1.1); Prothrombin Time 12.5 SEC (10.9-12.4)
[2024-08-16 11:49] LABS: Anion Gap 13 (12-20); Blood Urea Nitrogen 14 mg/dL (9-16); Calcium 9.6 mg/dL (8.4-10.2); Carbon Dioxide 29 mmol/L (22-29); Chloride 100 mmol/L (96-108); Creatinine Clr Calc Pharmacy 131.7; Estimated Glomerular Filt Rate > 60; Glucose Random 116 mg/dL (60-115); Potassium 3.9 mmol/L (3.3-5.1); Sodium 138 mmol/L (135-145)
[2024-08-16] MEDS: Ketorolac Tromethamine 15 MG/ML VIAL IVPUSH (11:53)
[2024-08-16] MEDS: Acetaminophen 325 MG TABLET 975 MG PO (11:53)
[2024-08-16] MEDS: methylPREDNISolone Sod Succ 125 MG/2 ML VIAL 60 MG IVPUSH (11:53)
[2024-08-16 11:58] LABS: Lactic Acid 0.8 mmol/L (0.5-2.0)
[2024-08-16] MEDS: cefTRIAXone sodium 1 GM VIAL IVPUSH (12:00)
[2024-08-16 12:09] LABS: C Reactive Protein 21.69 mg/dL (< or = 0.50)
[2024-08-16 12:15] LABS: Influenza A PCR NEGATIVE (Negative); Influenza B PCR NEGATIVE (Negative); Resp Syncy Virus RNA Qual PCR NEGATIVE (Negative); SARS COV2 PCR INHOUSE NEGATIVE (Negative)
[2024-08-16 12:17] LABS: SLIDE REVIEW VERIFIED
[2024-08-16 12:24] LABS: Procalcitonin 0.17 ng/mL
[2024-08-16] MEDS: Azithromycin 500 MG in 0.9 % Sodium Chloride 250 ML 125 MG IV (12:39)
[2024-08-16] MEDS: Albuterol Sulfate (0.083%) 2.5 MG/3 ML VIAL.NEB 5 MG INHALE (12:40)
--- NOTE | 2024-08-16 13:07 | P.HPHOSP_ITS ---
History of Present Illness Date of Service: 08/16/24 Attending physician on admission: James Leary Chief Complaint: cough, congestion, headache Patient is a 39-year-old male with a past medical history significant for mild intermittent asthma (no home inhalers for years) who reported to the ED for cough, congestion, dyspnea with exertion and headache x3 days. He reports that everyone at home is also sick, but not as sick as him. His cough is productive with yellow sputum. He has a history of smoking but quit 2 months ago. He has been vomiting frequently, 8 times this morning. He reports it is bilious fluids, never undigested food or blood. Nausea is somewhat controlled at the moment. He denies chest pain, abdominal pain, diarrhea, or constipation. He reports no improvement with albuterol updraft. Review of Systems 2 Constitutional: Constitutional: Denies chills, Denies fever(s) and Reports headache(s) Eyes: Eyes: Denies change in vision ENT: Reports headache(s), Denies nasal congestion and Denies nasal discharge Cardiovascular: Cardiovascular: Denies chest pain, Denies rapid heart rate, Reports dyspnea and Reports dyspnea on exertion Respiratory: Respiratory: Reports pain with cough, Reports dyspnea and Reports dyspnea on exertion Gastrointestinal: Gastrointestinal: Denies constipation, Denies diarrhea, Reports nausea, Reports vomiting and Denies hematemesis Genitourinary: Genitourinary: Denies dysuria Musculoskeletal: Musculoskeletal: Denies myalgias Integumentary/Breasts: Skin/Breast: Denies rash Neurologic: Denies confusion and Reports headache(s) Psychiatric: Psychiatric: Denies confusion [facility] Medical History Asthma Functional capacity: independent ambulation Social History Patient Tobacco Use Status: Former Tobacco user Substance Use Type: Marijuana Meds Allergies Allergy/AdvReac Type Severity Reaction Status Date / Time No Known Allergies Allergy Verified 08/16/24 11:02 Active Medications: Current Medications Acetaminophen (Acetaminophen 325 Mg Tablet) 650 mg PO Q6H PRN PRN Reason: Pain, Mild (Pain Scale 1-3), fever or headache Benzonatate (Benzonatate 100 Mg Capsule) 100 mg PO TID PRN PRN Reason: Cough Calcium Carbonate (Calcium Carbonate 750 Mg Tab.Chew) 750 mg PO Q4H PRN PRN Reason: Heartburn Enoxaparin Sodium (Enoxaparin Sodium 40 Mg/0.4 Ml Syringe) 40 mg SUBCUT Q24H MICHELLE Azithromycin 500 mg/ Sodium (Chloride) 250 mls @ 125 mls/hr IV ONCE ONE Stop: 08/16/24 14:10 Last Admin: 08/16/24 12:39 Dose: 125 mls/hr Magnesium Hydroxide (Milk Of Magnesia 30 Ml Oral.Susp) 30 ml PO DAILY PRN PRN Reason: Constipation Melatonin (Melatonin 3 Mg Tablet) 6 mg PO BEDTIME PRN PRN Reason: Insomnia Ondansetron HCl (Ondansetron Hcl 4 Mg/2 Ml Vial) 4 mg IVPUSH Q8H PRN PRN Reason: Nausea and Vomiting Sodium Chloride (0.9 % Sodium Chloride Flush 3 Ml Syringe) 3 ml IVFLUSH QSHIFT [facility] Physical Exam 2 Vital Signs and Narrative: Vital Signs: Last Vital Signs Temp 97.8 F 08/16/24 12:06 Pulse 79 08/16/24 12:41 Resp 14 08/16/24 12:41 BP 122/75 08/16/24 12:06 Pulse Ox 91 L 08/16/24 12:42 O2 Del Method Nasal Cannula 08/16/24 12:42 O2 Flow Rate 2 08/16/24 12:42 Oxygen Flow Rate 2 08/16/24 11:27 BMI result Body Mass Index 27.2 General: AOx3, no acute distress Resp: rhonchi bilaterally, LLL fine crackles, no wheezing CVS: S1, S2, RRR GI: +BS, NT, no distention Skin: Warm, dry Extremities: No edema Psych: Appropriate affect Const: General: No confusion Orientation/consciousness: No confusion Neuro: General: No confusion Results Labs 08/16/24 11:12 08/16/24 11:12 Labs: Laboratory Results - last 24 hr 08/16/24 08/16/24 08/16/24 11:12 11:36 11:38 MCV 90.1 MCH 30.9 MCHC 34.3 RDW 13.6 Plt Count 252 D MPV 9.1 L Immature Gran % (Auto) 0.3 Neut % (Auto) 74.6 H Lymph % (Auto) 7.8 L [place] % (Auto) 15.7 H Eos % (Auto) 1.3 Baso % (Auto) 0.3 Lymph # (Auto) 1.1 L [place] # (Auto) 2.1 H Eos # (Auto) 0.2 Baso # (Auto) 0.0 Abs Immat Gran (auto) 0.04 H Absolute Neuts (auto) 10.0 H Absolute Nucleated RBC 0.000 Nucleated RBC % (auto) 0.0 Smear Tech's Comments VERIFIED PT 12.5 H INR 1.1 Anion Gap 13 Estim Creat Clear Calc 131.7 Estimated GFR > 60 Random Glucose 116 H Lactic Acid 0.8 Calcium 9.6 C-Reactive Protein 21.69 H Procalcitonin 0.17 Influenza Type A (PCR) NEGATIVE Influenza Type B (PCR) NEGATIVE RSV RNA Qual (PCR) NEGATIVE SARS-CoV-2 RNA (RT-PCR) NEGATIVE Imaging Radiologist's Impressions: Impressions Chest X-Ray 08/16/24 11:05 IMPRESSION: Left lower lobe pneumonia. Follow-up is recommended to confirm clearing. Electronically signed by: Jewel Rahman MD 08/16/2024 12:05 PM EDT RP Assessment and Plan (1) Sepsis: Status: Acute (2) Pneumonia: Qualifiers: Laterality: left Lung location: lower lobe of lung Pneumonia type: due to unspecified organism Qualified Code(s): J18.9 - Pneumonia, unspecified organism Status: Acute (3) Acute hypoxic respiratory failure: Status: Acute (4) Mild intermittent asthma: Status: Chronic Plan Patient is a 39-year-old male with a past medical history significant for mild intermittent asthma (no home inhalers for years) who reported to the ED for cough, congestion, dyspnea with exertion and headache x3 days. Labs significant for leukocytosis, hypoxic with episodes of tachycardia. Chest x-ray with left lower lobe pneumonia. Given ceftriaxone and azithromycin and ED. patient not wheezing but was also given albuterol. Sepsis with acute hypoxic respiratory failure secondary to community-acquired pneumonia - chest x-ray with left lower lobe pneumonia - leukocytosis on CBC, blood cultures x2 pending, lactic acid normal, procalcitonin normal - COVID/flu/RSV negative - EKG with prolonged QTc of 489 - check strep pneumo and Legionella urine antigens - continue ceftriaxone and switch from azithryomcin to doxy due to QTc - continue Zofran as needed for nausea - Tessalon TID as needed for cough - monitor CBC, BMP, procalcitonin Mild intermittent asthma - stable without exacerbation - no wheezing on exam - can continue albuterol nebs Q4H as needed - if wheezing develops, add Solu-Medrol and DuoNebs Q4H while awake Full code VTE prophylaxis: Pneumo boots and Lovenox Patient with sepsis, acute hypoxic respiratory failure secondary to community- acquired pneumonia and new oxygen requirement, requiring admission for at least 2 midnight stay for IV antibiotics and monitoring. Quality Stroke Does the patient have a stroke diagnosis?: No VTE Prior VTE?: No VTE Risk Level:: Medical - moderate - high VTE Device Contraindication: N/A - Device Ordered VTE Drug Contraindication: N/A - Med Ordered
--- NOTE | 2024-08-16 13:26 | PHA.MEDREC ---
Pharmacy Consult ? Medication Reconciliation Pharmacy has completed the medication reconciliation, spoke to patient at bedside - pt stated he does not take any prescription medications and only has been using tylenol OTC.
[2024-08-16] MEDS: Enoxaparin Sodium 40 MG/0.4 ML SYRINGE SUBCUT (14:26)
[2024-08-16] MEDS: Magnesium Sulfate/H2O 2 GM/50 ML PIGGYBACK IV (14:47)
[2024-08-16] MEDS: Albuterol/Iprat 2.5/0.5MG 3 ML AMPUL.NEB INHALE ×2 (15:53→20:28)
[2024-08-16] MEDS: Acetaminophen 325 MG TABLET 650 MG PO (16:55)
[2024-08-16] MEDS: guaiFENesin DM 200/20/10 ML 10 ML SYRUP PO ×2 (16:55→19:15)
[2024-08-16] MEDS: 0.9 % Sodium Chloride Flush 3 ML SYRINGE IVFLUSH ×2 (16:56→19:18)
[2024-08-16] MEDS: ondansetron HCL 4 MG/2 ML VIAL IVPUSH (19:14)
[2024-08-16] MEDS: Benzonatate 100 MG CAPSULE PO (19:15)
[2024-08-16] MEDS: Melatonin 3 MG TABLET 6 MG PO (19:15)
[2024-08-17] VITALS (9 sets, daily range): BP systolic 110–124; BP diastolic 51–71; PULSE 68–94; RESP 14–18; TEMP 36.6–37.1; O2SAT 90–98
[2024-08-17] MEDS: Acetaminophen 325 MG TABLET 650 MG PO (03:38)
[2024-08-17] MEDS: Calcium Carbonate 750 MG TAB.CHEW PO ×6 (05:00→23:30)
--- NOTE | 2024-08-17 05:04 | MHC.PIE ---
p; pt c/o heartburn. prn tums given per orders. when given med, pt reports taking tumsx3 at home for heartburn i; dr waters notified. ok to give 2 more tums e; will cont to monitor
[2024-08-17 06:58] LABS: Basophils Percent Auto 0.4 % (0-2); Eosinophils Percent Auto 0.1 % (0-4); Hematocrit 32.7 % (42.0-52.0); Hemoglobin 10.9 g/dl (14.0-18.0); Imm Gran Abs Auto 0.12 X10*3/uL (0.00-0.03); Imm Gran Pct Auto 1.1 % (0.0-0.4); Lymphocytes Absolute Auto 0.9 X10*3/uL (1.2-4.9); Lymphocytes Percent Auto 8.3 % (20-40); MANUAL DIFF FLAG SCAN; Mean Corpuscular HGB Conc 33.3 g/dl (31.0-36.0); Mean Corpuscular Hemoglobin 30.4 pg (27.0-33.0); Mean Corpuscular Volume 91.3 fL (80.0-98.0); Mean Platelet Volume 9.5 fL (9.4-12.4); Monocytes Absolute Auto 1.7 X10*3/uL (0.1-1.2); Monocytes Percent Auto 14.7 % (2-11); Neutrophils Absolute Auto 8.5 x10*3/uL (2.0-8.3); Neutrophils Percent Auto 75.4 % (45-73); Platelet Count 272 X10*3/uL (160-400); Red Blood Count 3.58 X10*6/uL (4.60-5.80); Red Cell Distribution Width 13.5 % (11.0-16.0); SCAN SMEAR FLAG 1; White Blood Count 11.3 X10*3/uL (4.8-10.8)
[2024-08-17 07:10] LABS: Anion Gap 14 (12-20); Blood Urea Nitrogen 16 mg/dL (9-16); Calcium 9.2 mg/dL (8.4-10.2); Carbon Dioxide 29 mmol/L (22-29); Chloride 99 mmol/L (96-108); Creatinine Clr Calc Pharmacy 136.7; Estimated Glomerular Filt Rate > 60; Glucose Random 133 mg/dL (60-115); Potassium 4.3 mmol/L (3.3-5.1); Sodium 138 mmol/L (135-145)
[2024-08-17 07:29] LABS: Procalcitonin 0.17 ng/mL
[2024-08-17 07:33] LABS: SLIDE REVIEW VERIFIED
[2024-08-17] MEDS: Albuterol/Iprat 2.5/0.5MG 3 ML AMPUL.NEB INHALE ×4 (07:57→18:58)
[2024-08-17] MEDS: Doxycycline Hyclate 100 MG in 0.9 % Sodium Chloride 250 ML 166.67 MG IV ×2 (08:11→20:18)
[2024-08-17] MEDS: 0.9 % Sodium Chloride Flush 3 ML SYRINGE IVFLUSH ×3 (08:11→20:22)
[2024-08-17] MEDS: guaiFENesin DM 200/20/10 ML 10 ML SYRUP PO ×4 (08:11→20:18)
[2024-08-17] MEDS: Butalb/Acetamin/Caff 50/325/40 TABLET 1 TAB PO (10:15)
[2024-08-17] MEDS: cefTRIAXone sodium 1 GM VIAL IVPUSH (10:15)
--- NOTE | 2024-08-17 10:20 | HO.PM.IMPN ---
Subjective Subjective Date of Service: 08/17/24 Interval History: Complaining of headache and no sleep, persistent cough, denies shortness of breath, no fevers, no acute events overnight, tolerating diet no nausea, no vomiting, no abdominal pain no diarrhea. Review of Systems All other system reviewed and are negative Physical Exam Vital Signs: Vital Signs: Last Vital Signs Temp 98.8 F 08/17/24 07:08 Pulse 87 08/17/24 07:59 Resp 16 08/17/24 07:59 BP 124/63 08/17/24 07:08 Pulse Ox 93 08/17/24 07:08 O2 Del Method Nasal Cannula 08/17/24 07:08 O2 Flow Rate 2 08/17/24 07:08 Oxygen Flow Rate 2 08/16/24 11:27 BMI result Body Mass Index 27.2 Const: Other: General in no acute distress. Anicteric sclera/moist mucous membrane Neck no JVD. CVS regular rate rhythm, Respiratory lungs coarse breath sounds bilaterally, left base rhonchi Gastrointestinal abdomen soft, non tender, bowel sounds audible, no guarding , no rigidity. Extremities no edema. Neuro non focal Skin no rash Appropriate affect Objective Data Active Medications Acetaminophen (Acetaminophen 325 Mg Tablet) 650 mg PO Q6H PRN PRN Reason: Pain, Mild (Pain Scale 1-3), fever or headache Last Admin: 08/17/24 03:38 Dose: 650 mg Documented By: JAY Albuterol Sulfate (Albuterol Sulfate (0.042%) 1.25 Mg/3 Ml Vial.Neb) 1.25 mg INHALE RQ4H PRN PRN Reason: Shortness of Breath/Wheezing Albuterol/Ipratropium (Albuterol/Iprat 2.5/0.5mg 3 Ml Ampul.Neb) 3 ml INHALE RQ4H WHILE AWAKE MICHELLE Last Admin: 08/17/24 07:57 Dose: 3 ml Documented By: TOSHIA Benzonatate (Benzonatate 100 Mg Capsule) 100 mg PO TID PRN PRN Reason: Cough Last Admin: 08/16/24 19:15 Dose: 100 mg Documented By: JAY Calcium Carbonate (Calcium Carbonate 750 Mg Tab.Chew) 750 mg PO Q4H PRN PRN Reason: Heartburn Last Admin: 08/17/24 05:09 Dose: 750 mg Documented By: JAY Comments: md thompson to give 2 extra dose Ceftriaxone Sodium (Ceftriaxone Sodium 1 Gm Vial) 1 gm IVPUSH Q24H [facility] Last Admin: 08/17/24 10:15 Dose: 1 gm Documented By: ROSENDO Enoxaparin Sodium (Enoxaparin Sodium 40 Mg/0.4 Ml Syringe) 40 mg SUBCUT Q24H [facility] Last Admin: 08/16/24 14:26 Dose: 40 mg Documented By: IVANA Guaifenesin/Dextromethorphan (Guaifenesin Dm 200/20/10 Ml 10 Ml Syrup) 10 ml PO QID [facility] Last Admin: 08/17/24 08:11 Dose: 10 ml Documented By: ROSENDO Doxycycline Hyclate 100 mg/ (Sodium Chloride) 250 mls @ 166.67 mls/hr IV Q12H [facility] Last Infusion: 08/17/24 09:54 Dose: Infused Documented By: ROSENDO Influenza Virus Vaccine (Flu Vacc [id number](6mos Up)/Pf 0.5 Ml Syringe) 0.5 ml IM .ONCE ONE Stop: 08/17/24 17:01 Magnesium Hydroxide (Milk Of Magnesia 30 Ml Oral.Susp) 30 ml PO DAILY PRN PRN Reason: Constipation Melatonin (Melatonin 3 Mg Tablet) 6 mg PO BEDTIME PRN PRN Reason: Insomnia Last Admin: 08/16/24 19:15 Dose: 6 mg Documented By: JAY Ondansetron HCl (Ondansetron Hcl 4 Mg/2 Ml Vial) 4 mg IVPUSH Q8H PRN PRN Reason: Nausea and Vomiting Last Admin: 08/16/24 19:14 Dose: 4 mg Documented By: JAY Sodium Chloride (0.9 % Sodium Chloride Flush 3 Ml Syringe) 3 ml IVFLUSH QSHIFT [facility] Last Admin: 08/17/24 08:11 Dose: 3 ml Documented By: ROSENDO Labs 08/17/24 06:00 08/17/24 06:00 Labs: Laboratory Results - last 24 hr 08/16/24 08/16/24 08/16/24 11:12 11:36 11:38 MCV 90.1 MCH 30.9 MCHC 34.3 RDW 13.6 Plt Count 252 D MPV 9.1 L Immature Gran % (Auto) 0.3 Neut % (Auto) 74.6 H Lymph % (Auto) 7.8 L [place] % (Auto) 15.7 H Eos % (Auto) 1.3 Baso % (Auto) 0.3 Lymph # (Auto) 1.1 L [place] # (Auto) 2.1 H Eos # (Auto) 0.2 Baso # (Auto) 0.0 Abs Immat Gran (auto) 0.04 H Absolute Neuts (auto) 10.0 H Absolute Nucleated RBC 0.000 Nucleated RBC % (auto) 0.0 Smear Tech's Comments VERIFIED PT 12.5 H INR 1.1 Anion Gap 13 Estim Creat Clear Calc 131.7 Estimated GFR > 60 Random Glucose 116 H Lactic Acid 0.8 Calcium 9.6 C-Reactive Protein 21.69 H Procalcitonin 0.17 Influenza Type A (PCR) NEGATIVE Influenza Type B (PCR) NEGATIVE RSV RNA Qual (PCR) NEGATIVE SARS-CoV-2 RNA (RT-PCR) NEGATIVE 08/17/24 06:00 MCV 91.3 MCH 30.4 MCHC 33.3 RDW 13.5 Plt Count 272 MPV 9.5 Immature Gran % (Auto) 1.1 H Neut % (Auto) 75.4 H Lymph % (Auto) 8.3 L [place] % (Auto) 14.7 H Eos % (Auto) 0.1 Baso % (Auto) 0.4 Lymph # (Auto) 0.9 L [place] # (Auto) 1.7 H Eos # (Auto) 0.0 Baso # (Auto) 0.0 Abs Immat Gran (auto) 0.12 H Absolute Neuts (auto) 8.5 H Absolute Nucleated RBC 0.000 Nucleated RBC % (auto) 0.0 Smear Tech's Comments VERIFIED PT INR Anion Gap 14 Estim Creat Clear Calc 136.7 Estimated GFR > 60 Random Glucose 133 H Lactic Acid Calcium 9.2 C-Reactive Protein Procalcitonin 0.17 Influenza Type A (PCR) Influenza Type B (PCR) RSV RNA Qual (PCR) SARS-CoV-2 RNA (RT-PCR) Assessment and Plan (1) Acute hypoxic respiratory failure: Status: Acute (2) Sepsis: Status: Acute (3) Pneumonia: Status: Acute Plan 39-year-old male with a past medical history significant for mild intermittent asthma (no home inhalers for years) who reported to the ED for cough, congestion, dyspnea with exertion and headache x3 days. Labs significant for leukocytosis, hypoxic with episodes of tachycardia. Chest x-ray with left lower lobe pneumonia. Given ceftriaxone and azithromycin and ED. patient not wheezing but was also given albuterol. Sepsis with acute hypoxic respiratory failure secondary to community-acquired pneumonia - chest x-ray with left lower lobe pneumonia - WBC trending down, blood cultures x2 pending, lactic acid normal, procalcitonin normal - COVID/flu/RSV negative - EKG with prolonged QTc of 489, CRP 21.69 - strep pneumo and Legionella urine antigens pending - continue ceftriaxone and iv doxy started on 08/16, add scheduled cough medication, Fioricet for headache - monitor CBC, BMP, and CRP Mild intermittent asthma - stable without exacerbation - no wheezing on exam - continue albuterol nebs Q4H as needed - hold IV steroids Full code VTE prophylaxis: Lovenox Patient requires continued inpatient hospitalization for sepsis, acute hypoxic respiratory failure secondary to community-acquired pneumonia and new oxygen requirement. Quality Stroke Does the patient have a stroke diagnosis?: No VTE Prior VTE?: No VTE Risk Level:: Medical - moderate - high VTE Device Contraindication: N/A - Device Ordered VTE Drug Contraindication: N/A - Med Ordered
--- NOTE | 2024-08-17 11:50 | MHC.CM.PN ---
EMR REVIEWED, PT ADMITTED W/LLL PNA, CM MET W/PT WHO REPORTS HE LIVES W/S.O., [place], DTR AND 3YO SON, PT IS FULLY INDEP W/ALL CARE, DENIES USE OF DME/SERVICES AND GOAL FOR DC IS HOME WHEN MEDICALLY CLEAR. PT VERIFIES PCP ON FILE IS CORRECT AND PT EDUCATED ON AND COMPLETED A HCP NAMING HI SS.OItalo SERGO MONAE [phone] HIS HCA, NO ALTERNATE CHOSEN, PT PRODIDED W/EDUCATIONAL HANDOUT AND ORGINAL, COPY UPLOADED TO [facility] AND PLACED IN CHART.
[2024-08-17] MEDS: Enoxaparin Sodium 40 MG/0.4 ML SYRINGE SUBCUT (12:36)
--- NOTE | 2024-08-17 23:32 | PC.NURSE ---
per dr Andrey thompson to radha 2 more tablets of tums total of 3 tabs given
--- NOTE | 2024-08-17 23:37 | PC.NURSE ---
patient says he usually take [address] Balderas notified and okayed to give 3.
--- NOTE | 2024-08-18 01:25 | PC.NURSE ---
spoke with dr Balderas r/r this patients requests to give 3 tabs of Tums . He agreed to place comment under medication . pt may take 3 tabs at one time
[2024-08-18 03:40] VITALS: BP 126/79; PULSE 72; RESP 16; TEMP 36.6; O2SAT 95
[2024-08-18 06:09] LABS: MANUAL DIFF FLAG NO
[2024-08-18 06:12] LABS: Basophils Percent Auto 0.4 % (0-2); Eosinophils Absolute Auto 0.2 X10*3/uL (0.0-0.4); Eosinophils Percent Auto 1.9 % (0-4); Hematocrit 32.2 % (42.0-52.0); Hemoglobin 10.4 g/dl (14.0-18.0); Imm Gran Abs Auto 0.16 X10*3/uL (0.00-0.03); Imm Gran Pct Auto 1.7 % (0.0-0.4); Lymphocytes Absolute Auto 1.8 X10*3/uL (1.2-4.9); Lymphocytes Percent Auto 19.5 % (20-40); Mean Corpuscular HGB Conc 32.3 g/dl (31.0-36.0); Mean Corpuscular Hemoglobin 30.1 pg (27.0-33.0); Mean Corpuscular Volume 93.3 fL (80.0-98.0); Mean Platelet Volume 9.2 fL (9.4-12.4); Monocytes Absolute Auto 1.1 X10*3/uL (0.1-1.2); Monocytes Percent Auto 12.1 % (2-11); Neutrophils Absolute Auto 5.9 x10*3/uL (2.0-8.3); Neutrophils Percent Auto 64.4 % (45-73); Platelet Count 264 X10*3/uL (160-400); Red Blood Count 3.45 X10*6/uL (4.60-5.80); Red Cell Distribution Width 13.8 % (11.0-16.0); White Blood Count 9.2 X10*3/uL (4.8-10.8)
[2024-08-18 06:30] LABS: Anion Gap 10 (12-20); Blood Urea Nitrogen 15 mg/dL (9-16); Calcium 9.4 mg/dL (8.4-10.2); Carbon Dioxide 32 mmol/L (22-29); Chloride 102 mmol/L (96-108); Creatinine Clr Calc Pharmacy 128.5; Estimated Glomerular Filt Rate > 60; Glucose Random 92 mg/dL (60-115); Potassium 4.1 mmol/L (3.3-5.1); Sodium 140 mmol/L (135-145)
[2024-08-18 07:39] VITALS: BP 141/86; PULSE 63; RESP 18; TEMP 36.7; O2SAT 95
[2024-08-18] MEDS: Albuterol/Iprat 2.5/0.5MG 3 ML AMPUL.NEB INHALE ×2 (07:48→11:23)
[2024-08-18 07:50] VITALS: PULSE 81; RESP 16; O2SAT 99
[2024-08-18] MEDS: guaiFENesin DM 200/20/10 ML 10 ML SYRUP PO (09:10)
[2024-08-18] MEDS: Doxycycline Hyclate 100 MG in 0.9 % Sodium Chloride 250 ML 166.67 MG IV (09:10)
[2024-08-18] MEDS: 0.9 % Sodium Chloride Flush 3 ML SYRINGE IVFLUSH (09:14)
--- NOTE | 2024-08-18 10:56 | MHC.CM.PN ---
Patient medically cleared for dc home self care via private transport.
[2024-08-18] MEDS: cefTRIAXone sodium 1 GM VIAL IVPUSH (11:06)
[2024-08-18 11:12] LABS: C Reactive Protein 7.51 mg/dL (< or = 0.50)
[2024-08-18 11:24] VITALS: PULSE 82; RESP 16; O2SAT 99
[2024-08-19 22:44] LABS: Strep Pneumo Ag urine Not Detected (Not Detected)
--- NOTE | 2024-08-20 16:03 | P.DS_ITS ---
DS: Providers Provider Date of Service: 08/18/24 Date of admission: 08/16/24 12:58 Date of discharge: 08/18/24 Primary care physician: Harley Abad DO DS: Diagnosis Discharge Diagnosis (1) Acute hypoxic respiratory failure: Status: Acute (2) Sepsis: Status: Acute (3) Pneumonia: Status: Acute DS: Summary Hospital Course Hospital Course: History of presenting illness: Date of Service: 08/16/24 Attending physician on admission: James Leary Chief Complaint: cough, congestion, headache Patient is a 39-year-old male with a past medical history significant for mild intermittent asthma (no home inhalers for years) who reported to the ED for cough, congestion, dyspnea with exertion and headache x3 days. He reports that everyone at home is also sick, but not as sick as him. His cough is productive with yellow sputum. He has a history of smoking but quit 2 months ago. He has been vomiting frequently, 8 times this morning. He reports it is bilious fluids, never undigested food or blood. Nausea is somewhat controlled at the moment. He denies chest pain, abdominal pain, diarrhea, or constipation. He reports no improvement with albuterol updraft. Hospital course: 39-year-old male with a past medical history significant for mild intermittent asthma (no home inhalers for years) who reported to the ED for cough, congestion, dyspnea with exertion and headache x3 days. Labs significant for leukocytosis, hypoxic with episodes of tachycardia, Chest x-ray showed left lower lobe pneumonia, patient admitted to [facility] with a diagnosis of Sepsis with acute hypoxic respiratory failure secondary to community-acquired pneumonia, treated with IV ceftriaxone and IV doxycycline, cough medications, COVID, flu and RSV were negative, blood cultures x2 normal, patient responded well to above treatment, therefore will discharge home to finish total 7 day course of antibiotics ,recommend to take cough medications, and analgesics as needed., strep pneumo and Legionella urine antigen pending. In regard to history of Mild intermittent asthma , noted to have no acute exacerbation recommend to continue home inhalers. Time Attestation Discharge Coordination Time (in mins): 36 Quality: Safe Use of Opioids Does Pt have an Active Cancer Diagnosis on the Problem List?: No Quality: Stroke Does the patient have a stroke diagnosis?: No Physical Exam Vital Signs: Vital Signs: Last Vital Signs Temp 98.0 F 08/18/24 07:39 Pulse 82 08/18/24 11:24 Resp 16 08/18/24 11:24 BP 141/86 H 08/18/24 07:39 Pulse Ox 95 08/18/24 07:39 O2 Del Method Room Air 08/18/24 07:39 O2 Flow Rate 2 08/17/24 07:08 Oxygen Flow Rate 2 08/16/24 11:27 BMI result Body Mass Index 27.2 Const: Other: General awake alert x3, in no acute distress. Anicteric sclera/moist mucous membrane Neck no JVD. CVS regular rate rhythm, Respiratory lungs left base rhonchi , no respiratory distress Gastrointestinal abdomen soft, non tender, bowel sounds audible, no guarding , no rigidity. Extremities no edema. Neuro non focal Skin no rash Appropriate affect DS: Data Data Completed and Pending Labs on day of discharge: Laboratory Results - last 24 hr 08/16/24 Unknown Ur Strep pneumoniae Ag Not Detected Preliminary micro results at discharge 08/16/24 11:59 Blood Culture - Preliminary Blood - Venous No growth after 48 hours. 08/16/24 11:59 Blood Culture - Preliminary Blood - Venous No growth after 48 hours. Discharge Plan Discharge Anticipated Discharge Date/Time: 08/18/24 10:49 Patient Disposition: Home, Self-Care Discharge Diagnosis: Acute hypoxic respiratory failure due to pneumonia Referrals: Harley Abad DO [Primary Care Provider] - 1 Week Discharge Medications: New cefuroxime axetil 500 mg tablet 500 mg PO Q12H Qty: 6 0RF dextromethorphan-guaifenesin 10-100 mg/5 mL Syrup 10 ml PO QID PRN (Reason: cough) Qty: 500 0RF albuterol sulfate [Ventolin HFA] 90 mcg/actuation Hfa Aerosol Inhaler 2 puff inhalation RQ4H PRN (Reason: sob) Qty: 8.5 0RF Continued acetaminophen [Tylenol Extra Strength] 500 mg tablet 500 mg PO Q6H PRN (Reason: pain) Qty: 30 0RF Discharge Orders: Discharge Order (Routine); Ordered 08/18/24 Ordered By: James Leary Diet: Advance to usual diet Activity on Discharge: As tolerated Stand Alone Forms: Patient Portal Discharge page Print Language: Welsh Care Plan Goals: Take Ceftin 1 tablet twice daily starting tomorrow morning, cough medication 4 times a day as needed, rest, fluids, and albuterol inhaler for shortness of breath as needed. Repeat chest x-ray in 2-3 weeks to check for clearance of infection. Health Concerns: Mild intermittent asthma Plan of Treatment: Outpatient follow-up with primary care physician call for appointment in 7-10 days Assessment: As above Discharge Date/Time: 08/18/24 12:03
[2024-08-21 07:28] LABS: Legionella Ag Urine Not Detected (Not Detected)
== END 2024-08-18 12:03 | disposition home or self-care (01) | DRG 720 ==
LOC: HO.ED 12:33 → HO.EDOVER 13:09 → HO.S3 14:16
PROVIDERS: Physician Assistant; Admitting Provider Physician Assistant; Emergency Provider Emergency Medicine; PCP Internal Medicine; Visit Provider Hospitalist
DX: A41.9 Sepsis, unspecified organism (principal); J18.9 Pneumonia, unspecified organism; J45.20 Mild intermittent asthma, uncomplicated; Z20.822 Contact with and (suspected) exposure to COVID-19; Z87.891 Personal history of nicotine dependence
CPT/HCPCS: 0241U; 36415; 71046; 80048; 83605; 84145; 85025; 85610; 86140; 87040; 87449; 87899; 93005; 94640; 99285; J0456; J0696; J1650; J1885; J2405; J2919; J3475

== ENCOUNTER 2024-08-16 12:58 | Outpatient (BNV) | payer OTHER, SELFPAY | END 2024-08-16 13:01 | PROVIDERS: Admitting Provider Physician Assistant; Emergency Provider Emergency Medicine; PCP Internal Medicine; Visit Provider Internal Medicine Cardiovascular Disease | DX: I45.81 Long QT syndrome (principal) | CPT/HCPCS: 93010 ==

== ENCOUNTER → 2024-08-16 12:58 | Outpatient (BNV) | payer OTHER, SELFPAY | PROVIDERS: Admitting Provider Physician Assistant; Emergency Provider Emergency Medicine; PCP Internal Medicine; Visit Provider Physician Assistant | DX: J96.01 Acute respiratory failure with hypoxia (principal); A41.9 Sepsis, unspecified organism; J18.9 Pneumonia, unspecified organism | CPT/HCPCS: 99233; 99239 ==

== ENCOUNTER 2024-11-10 01:25 | Emergency (ER) | payer OTHER, SELFPAY ==
--- NOTE | ~2024-11-10 | XR_ITS ---
CLINICAL HISTORY: pain, swelling 2 views left knee Comparison: None Findings: There appears to be anterior soft tissue swelling. There is no fracture or dislocation. Joint spaces appear normal. No effusion is seen. Impression: No osseous abnormality. This document has been electronically signed by: Axel Oliveira MD on 11/10/2024 03:29:06
[2024-11-10 01:30] VITALS: BP 141/83; PULSE 67; RESP 22; TEMP 36.8; O2SAT 95; BMI 27.1
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
[2024-11-10] MEDS: Famotidine 20 MG TABLET PO (02:29)
[2024-11-10] MEDS: diphenhydrAMINE HCL 50 MG/ML VIAL IM (02:29)
[2024-11-10] MEDS: methylPREDNISolone Sod Succ 125 MG/2 ML VIAL 60 MG IM (02:29)
[2024-11-10 04:00] VITALS: BP 142/78; PULSE 92; RESP 20; TEMP 36.4; O2SAT 97
== END 2024-11-10 04:02 | disposition home or self-care (01) ==
PROVIDERS: Emergency Provider Emergency Medicine; PCP Internal Medicine
DX: L84 Corns and callosities (principal); M25.561 Pain in right knee; M25.462 Effusion, left knee; L53.9 Erythematous condition, unspecified
CPT/HCPCS: 73560; 96372; 99283; 99284; J1200; J2919

== ENCOUNTER → 2024-11-10 02:17 | Outpatient (BNV) | payer OTHER, SELFPAY | PROVIDERS: Emergency Provider Emergency Medicine; PCP Internal Medicine; Visit Provider Radiology Diagnostic Radiology | DX: M25.562 Pain in left knee (principal) | CPT/HCPCS: 73560 ==

== ENCOUNTER 2025-01-28 15:18 | Emergency (ER) | payer OTHER, SELFPAY ==
--- NOTE | ~2025-01-28 | XR_ITS ---
EXAMINATION: XR CHEST CLINICAL INFORMATION: coughing. Pneumonia COMPARISON: 08/16/2024. TECHNIQUE: Frontal view of the chest was obtained. FINDINGS: The cardiac, hilar, and mediastinal contours are normal. The lungs are clear bilaterally. No pneumothorax or effusion. No focal osseous or soft tissue abnormality. XR/XR chest 1V IMPRESSION: No active pulmonary disease. Electronically signed by: Wesley Marin MD 01/28/2025 04:35 PM EDT
--- NOTE | 2025-01-28 15:20 | ECG_ITS ---
Test Reason : CP Blood Pressure : */* mmHG Vent. Rate : 119 BPM Atrial Rate : 119 BPM P-R Int : 150 ms QRS Dur : 86 ms QT Int : 340 ms P-R-T Axes : 63 35 22 degrees QTcB Int : 478 ms Sinus tachycardia Minimal voltage criteria for LVH, may be normal variant ( Sokolow-Hameed ) Nonspecific ST abnormality Abnormal ECG When compared with ECG of 16-Aug-2024 13:01, No significant change was found Referred By: Gato Mcdonough Electronically Signed By: Ismael Frank
--- NOTE | 2025-01-28 15:25 | ED_ITS ---
HPI - General Adult General Chief complaint: General Medical Stated complaint: chest pain,heart racing ,fatigue Time Seen by Provider: 01/28/25 16:18 Source: patient Limitations: no limitations History of Present Illness ED Provider: Massiel Payan PA-C HPI narrative: 39-year-old male with a history of asthma and anxiety presents with multiple complaints x1 week. Patient states he has been having ongoing nausea vomiting diarrhea, having up to 4 bowel movements 4 times a day over the past week. Associated generalized chest pain with subjective shortness of breath. Chest pain worse with movement of the left upper extremity. Patient denies mechanism of injury, repetitive activity, trauma, new exercise. Patient states he has not been able to sleep in a week and does not feel well. Denies sick contacts with same symptoms, recent travel, recent hospitalization or recent use of antibiotics. Related Data Previous Rx's ?Medication ?Instructions ?Recorded acetaminophen 500 mg tablet 500 mg PO Q6H PRN pain #30 tabs 11/05/23 (Tylenol Extra Strength) albuterol sulfate 90 mcg/actuation 2 puff inhalation RQ4H PRN sob 08/18/24 aerosol inhaler (Ventolin HFA) #8.5 grams cefuroxime axetil 500 mg tablet 500 mg PO Q12H #6 tabs 08/18/24 dextromethorphan-guaifenesin 10 10 ml PO QID PRN cough #500 mL 08/18/24 mg-100 mg/5 mL oral syrup hydrocortisone 1 % topical cream 1 appl topical TID PRN skin 11/10/24 (Cortisone (hydrocortisone)) irritation #28.4 grams hydroxyzine HCl 25 mg tablet 25 mg PO TID PRN itching #14 tabs 11/10/24 prednisone 50 mg tablet 50 mg PO DAILY #4 tabs 11/10/24 dicyclomine 20 mg tablet 20 mg PO BID PRN abdominal pain #7 01/28/25 tabs ondansetron HCl 4 mg tablet 4 mg PO Q8H PRN nausea and 01/28/25 vomiting #10 tabs Allergies Allergy/AdvReac Type Severity Reaction Status Date / Time No Known Allergies Allergy Verified 01/28/25 15:32 Review of Systems 2 Review of Systems: Yes all other systems are reviewed and are negative Constitutional: Constitutional: Denies fatigue, Denies fever(s) and Reports malaise Cardiovascular: Cardiovascular: Reports chest pain and Reports dyspnea Respiratory: Respiratory: Reports dyspnea Gastrointestinal: Gastrointestinal: Denies abdominal pain, Reports diarrhea, Reports nausea and Reports vomiting Endocrine: Endocrine: Denies fatigue [facility] Past Medical History Attestation statement: The following information was validated with the patient. Medical History Asthma Social History Social History Household Members: Family Housing: House Do you presently have visiting nurse or other home services: No Patient Tobacco Use Status: Never used Tobacco Smoked in Last 30 Days: No Use of substances other than those prescribed or required for medical reasons: No Substance Use Type: Marijuana Advance Directives: Yes Advance Directives on File: Yes Advance Directives Date on File: 08/20/24 Do you have a plan to hurt others: No Plan service: No Physical Exam ED Vital Signs: Vital Signs - 24 hr 01/28/25 15:30 01/28/25 17:58 01/28/25 20:09 Temperature 98.0 F 98.2 F Pulse Rate 112 H 87 87 Respiratory Rate 16 16 16 Blood Pressure 123/76 134/90 H 134/90 H Pulse Oximetry 100 96 96 Oxygen Delivery Method Room Air Room Air Room Air BMI result Body Mass Index 23.2 Const Other: Alert Orientation/consciousness: patient oriented x3 Resp Effort & Inspection: normal respiratory effort Cardio Other: Normal peripheral perfusion Skin Other: Warm dry no rash Neuro General: patient oriented x3, gait normal, no focal motor deficits and CN's II- XI intact bilaterally Psych Other: Cooperative, very anxious Course Course Course Narrative: RME: 39 yold male presents to the ED for chest pain, diarrhea, nausea, vomitting, and fatigue. LAbs, ekg, sars, and chest xray ordered. Patient well- appearing Reevaluation(s) Reevaluation #1: Patient's symptoms have improved since he was medicated with Bentyl and Zofran. He is still complaining of full body pain. His presentation is very odd, he is very anxious and jittery, almost manic in appearance, he will not sit still he keeps going to the bathroom with the his IV pole. I am offering to send him with the medications that I gave, he is now declining, he is asking for pain med. I am trying to ask further questions to try to figure out what is going on with the patient, at this point, he has become very agitated he is actively ripping out his IV. I was able to successfully remove it safely in place a Band-Aid. He is leaving without the benefit of his discharge instructions. I am sending medications to his pharmacy regardless. Time: 19:24 Medications Administered Discontinued Medications Generic Name Dose Route Start Last Admin Trade Name Claire PRN Reason Stop Dose Admin Dicyclomine HCl 20 mg 01/28/25 18:08 01/28/25 18:22 Dicyclomine Hcl 10 Mg Capsule PO 01/28/25 18:09 20 mg ONCE ONE Administration Sodium Chloride 1,000 mls @ 999 mls/hr 01/28/25 18:15 01/28/25 18:17 Ns IV 01/28/25 19:15 999 mls/hr .Q1H1M MICHELLE Administration Ondansetron HCl 4 mg 01/28/25 18:08 01/28/25 18:21 Ondansetron Hcl 4 Mg/2 Ml Vial IVPUSH 01/28/25 18:09 4 mg ONCE ONE Administration Medical Decision Making Medical Decision Making MDM Narrative: 39-year-old male with a history of asthma and anxiety presents with multiple complaints x1 week. Patient states he has been having ongoing nausea vomiting diarrhea, having up to 4 bowel movements 4 times a day over the past week. Associated generalized chest pain with subjective shortness of breath. Chest pain worse with movement of the left upper extremity. Patient denies mechanism of injury, repetitive activity, trauma, new exercise. Patient states he has not been able to sleep in a week and does not feel well. Denies sick contacts with same symptoms, recent travel, recent hospitalization or recent use of antibiotics. Problem: Anxiety History: Per patient I have considered the following differential diagnoses: Viral gastroenteritis, traveler's diarrhea, C diff, diverticulitis, colitis , ACS, anxiety Plan: Screening labs including a viral panel were obtained from triage, thus far everything is negative. He has no risk factors for traveler's diarrhea or C diff. He has no focal left lower quadrant pain to suggest diverticulitis. ACS was considered, however his chest discomfort is highly atypical and he has no risk factors for coronary artery disease. Troponin EKG and chest x-ray was obtained. I have independently reviewed the following tests: Labs: No leukocytosis, not anemic, no electrolyte abnormality, strep screen negative, troponin negative, viral panel negative EKG: Sinus tachycardia, rate of 119, no active ischemic changes no ectopy when compared to prior study QTC 470 Chest x-ray: XR/XR chest 1V IMPRESSION: No active pulmonary diseas Lab Data 01/28/25 15:48 01/28/25 15:48 Labs: Lab Results 01/28/25 Range/Units 15:48 WBC 6.6 (4.8-10.8) X10*3/uL RBC 4.47 L D (4.60-5.80) X10*6/uL Hgb 13.6 L D (14.0-18.0) g/dl Hct 39.5 L D (42.0-52.0) % MCV 88.4 (80.0-98.0) fL MCH 30.4 (27.0-33.0) pg MCHC 34.4 (31.0-36.0) g/dl RDW 13.8 (11.0-16.0) % Plt Count 301 (160-400) X10*3/uL MPV 8.7 L (9.4-12.4) fL Immature Gran % (Auto) 0.2 (0.0-0.4) % Neut % (Auto) 66.3 (45-73) % Lymph % (Auto) 25.0 (20-40) % [place] % (Auto) 7.6 (2-11) % Eos % (Auto) 0.6 (0-4) % Baso % (Auto) 0.3 (0-2) % Lymph # (Auto) 1.6 (1.2-4.9) X10*3/uL [place] # (Auto) 0.5 (0.1-1.2) X10*3/uL Eos # (Auto) 0.0 (0.0-0.4) X10*3/uL Baso # (Auto) 0.0 (0.0-0.2) X10*3/uL Abs Immat Gran (auto) 0.01 (0.00-0.03) X10*3/uL Absolute Neuts (auto) 4.4 (2.0-8.3) x10*3/uL Absolute Nucleated RBC 0.000 (0.0-0.012) X10*3/uL Nucleated RBC % (auto) 0.0 (0.0-0.2) /100WBC PT 12.9 H (10.9-12.4) SEC INR 1.1 (0.9-1.1) APTT 31.4 (26.0-36.8) SEC Sodium 140 (135-145) mmol/L Potassium 4.0 (3.3-5.1) mmol/L Chloride 106 (96-108) mmol/L Carbon Dioxide 26 (22-29) mmol/L Anion Gap 12 (12-20) BUN 15 (9-16) mg/dL Creatinine 0.77 (0.5-1.4) mg/dL Estim Creat Clear Calc 138.5 Estimated GFR > 60 Random Glucose 108 (60-115) mg/dL Calcium 9.7 (8.4-10.2) mg/dL Total Bilirubin 0.7 (0.0-1.0) mg/dL AST 14 (5-37) U/L ALT 9 (0-40) U/L Alkaline Phosphatase 76 (39-117) U/L Troponin I High Sens < 2.7 (<3.5-35.0) ng/L Total Protein 8.3 H (6.5-8.0) g/dL Albumin 4.4 (3.5-5.0) g/dL Influenza Type A (PCR) NEGATIVE (Negative) Influenza Type B (PCR) NEGATIVE (Negative) RSV RNA Qual (PCR) NEGATIVE (Negative) SARS-CoV-2 RNA (RT-PCR) NEGATIVE (Negative) S. pyogenes GrpA ELISA Negative (Negative) Discharge Plan Discharge Clinical Impression: Myalgia, Chest pain, Gastroenteritis Patient Disposition: Home, Self-Care Instructions: Gastroenteritis (ED), Musculoskeletal Pain (ED), Noncardiac Chest Pain (ED) Additional Instructions: All of your screening labs including a cardiac enzymes were normal. The viral panel is negative. There were no concerning changes on the EKG. The chest x- ray is clear. You have suspect viral gastroenteritis, such illness has been prevalent within the community. Uses Zofran as needed for nausea, use the dicyclomine as needed for diarrhea. Follow up with your primary care provider as needed. Prescriptions: New ondansetron HCl 4 mg tablet 4 mg PO Q8H PRN (Reason: nausea and vomiting) Qty: 10 0RF dicyclomine 20 mg tablet 20 mg PO BID PRN (Reason: abdominal pain) Qty: 7 0RF No Action hydroxyzine HCl 25 mg tablet 25 mg PO TID PRN (Reason: itching) Qty: 14 0RF prednisone 50 mg tablet 50 mg PO DAILY Qty: 4 0RF hydrocortisone [Cortisone (hydrocortisone)] 1 % cream 1 appl topical TID PRN (Reason: skin irritation) Qty: 28.4 0RF acetaminophen [Tylenol Extra Strength] 500 mg tablet 500 mg PO Q6H PRN (Reason: pain) Qty: 30 0RF cefuroxime axetil 500 mg tablet 500 mg PO Q12H Qty: 6 0RF dextromethorphan-guaifenesin 10-100 mg/5 mL Syrup 10 ml PO QID PRN (Reason: cough) Qty: 500 0RF albuterol sulfate [Ventolin HFA] 90 mcg/actuation Hfa Aerosol Inhaler 2 puff inhalation RQ4H PRN (Reason: sob) Qty: 8.5 0RF Interventions: ED Discharge Assessment Last Done: 01/28/25 20:09 Discharge Date/Time: 01/28/25 20:09 Print Language: South Korean
[2025-01-28 15:30] VITALS: BP 123/76; PULSE 112; RESP 16; TEMP 36.7; O2SAT 100; BMI 23.2
[2025-01-28 15:51] LABS: MANUAL DIFF FLAG NO
[2025-01-28 15:56] LABS: Basophils Percent Auto 0.3 % (0-2); Eosinophils Percent Auto 0.6 % (0-4); Hematocrit 39.5 % (42.0-52.0); Hemoglobin 13.6 g/dl (14.0-18.0); Imm Gran Abs Auto 0.01 X10*3/uL (0.00-0.03); Imm Gran Pct Auto 0.2 % (0.0-0.4); Lymphocytes Absolute Auto 1.6 X10*3/uL (1.2-4.9); Mean Corpuscular HGB Conc 34.4 g/dl (31.0-36.0); Mean Corpuscular Hemoglobin 30.4 pg (27.0-33.0); Mean Corpuscular Volume 88.4 fL (80.0-98.0); Mean Platelet Volume 8.7 fL (9.4-12.4); Monocytes Absolute Auto 0.5 X10*3/uL (0.1-1.2); Monocytes Percent Auto 7.6 % (2-11); Neutrophils Absolute Auto 4.4 x10*3/uL (2.0-8.3); Neutrophils Percent Auto 66.3 % (45-73); Platelet Count 301 X10*3/uL (160-400); Red Blood Count 4.47 X10*6/uL (4.60-5.80); Red Cell Distribution Width 13.8 % (11.0-16.0); White Blood Count 6.6 X10*3/uL (4.8-10.8)
[2025-01-28 16:05] LABS: INTERNATIONAL NORM RATIO 1.1 (0.9-1.1); Prothrombin Time 12.9 SEC (10.9-12.4)
[2025-01-28 16:07] LABS: IDNOW Serial# 55D5AD1C; Partial Thromboplastin Time 31.4 SEC (26.0-36.8); Strep A Nucleic Acid Negative (Negative)
[2025-01-28 16:24] LABS: Alanine Aminotransferase 9 U/L (0-40); Albumin Level 4.4 g/dL (3.5-5.0); Anion Gap 12 (12-20); Aspartate Amino Transferase 14 U/L (5-37); Bilirubin Total 0.7 mg/dL (0.0-1.0); Blood Urea Nitrogen 15 mg/dL (9-16); Calcium 9.7 mg/dL (8.4-10.2); Carbon Dioxide 26 mmol/L (22-29); Chloride 106 mmol/L (96-108); Creatinine Clr Calc Pharmacy 138.5; Estimated Glomerular Filt Rate > 60; Glucose Random 108 mg/dL (60-115); Sodium 140 mmol/L (135-145); Total Protein 8.3 g/dL (6.5-8.0)
[2025-01-28 16:31] LABS: Influenza A PCR NEGATIVE (Negative); Influenza B PCR NEGATIVE (Negative); Resp Syncy Virus RNA Qual PCR NEGATIVE (Negative); SARS COV2 PCR INHOUSE NEGATIVE (Negative)
[2025-01-28 16:36] LABS: Troponin-I High Sensitivity < 2.7 ng/L (<3.5-35.0)
[2025-01-28 16:49] LABS: Alkaline Phosphatase 76 U/L (39-117)
--- NOTE | 2025-01-28 17:56 | PC.NURSE ---
Patient present with N/V with assoc anorexia and palpiations for the past 4 days. Lungs clear bilat. Respirations even and non-labored.
[2025-01-28 17:58] VITALS: BP 134/90; PULSE 87; RESP 16; O2SAT 96
[2025-01-28] MEDS: 0.9 % Sodium Chloride 1,000 ML 999 ML IV (18:17)
[2025-01-28] MEDS: ondansetron HCL 4 MG/2 ML VIAL IVPUSH (18:21)
[2025-01-28] MEDS: Dicyclomine HCl 10 MG CAPSULE 20 MG PO (18:22)
[2025-01-28 20:09] VITALS: BP 134/90; PULSE 87; RESP 16; TEMP 36.8; O2SAT 96
== END 2025-01-28 20:09 | disposition home or self-care (01) ==
PROVIDERS: Physician Assistant; Emergency Provider Emergency Medicine; PCP Internal Medicine
DX: K52.9 Noninfective gastroenteritis and colitis, unspecified (principal); R07.89 Other chest pain; R11.2 Nausea with vomiting, unspecified; R06.02 Shortness of breath; M79.10 Myalgia, unspecified site; Z79.899 Other long term (current) drug therapy; Z03.818 Encounter for observation for suspected exposure to other biological agents ruled out
CPT/HCPCS: 0241U; 71045; 80053; 84484; 85025; 85610; 85730; 87651; 93005; 96374; 99284; 99285; J2405

== ENCOUNTER → 2025-01-28 15:20 | Outpatient (BNV) | payer OTHER, SELFPAY | PROVIDERS: Emergency Provider Emergency Medicine; PCP Internal Medicine; Visit Provider Internal Medicine Cardiovascular Disease | DX: R00.0 Tachycardia, unspecified (principal) | CPT/HCPCS: 93010 ==

== ENCOUNTER → 2025-01-28 15:38 | Outpatient (BNV) | payer OTHER, SELFPAY | PROVIDERS: Emergency Provider Emergency Medicine; PCP Internal Medicine; Visit Provider Radiology Diagnostic Radiology | DX: J18.9 Pneumonia, unspecified organism (principal); R05.9 Cough, unspecified | CPT/HCPCS: 71045 ==

== ENCOUNTER 2025-02-11 09:22 | Outpatient (AMB) | payer OTHER, SELFPAY ==
[2025-02-11 09:24] VITALS: BP 142/90; PULSE 90; RESP 16; TEMP 36.6; O2SAT 99; BMI 25.1
--- NOTE | 2025-02-11 09:24 | MHC.PC.OV ---
Vital Signs 02/11/25 09:24 Height 6 ft Weight 185 lb BMI 25.1 BP 142/90 H Respiration 16 Pulse 90 Pulse Source Pulse Oximeter Temp 97.8 F Temp Source Temporal Artery Scan Pulse Oximetry (%) 99 Oxygen Delivery Method Room Air Intake Visit Reasons: migraine headaches Cleaners Required: No Accompanied by: Self / Same As Patient Allergies No Known Allergies Allergy (Verified 02/11/25 09:58) Medication List - Last Reconciled 02/11/25 by Marlee Duarte PA-C acetaminophen (Tylenol Extra Strength) 500 mg PO Q6H PRN albuterol sulfate 90 mcg/actuation (Ventolin HFA) 2 puffs inhalation RQ4H PRN lisinopril 10 mg PO DAILY sumatriptan succinate (Imitrex) take 1 tab at onset of headache; if no relief may repeat 1 tab after at least 2 hrs; max = 4 tabs/24 hr PO valacyclovir (Valtrex) 1,000 mg PO DAILY 5 days Tobacco use date assessed: 02/11/25 Dental Screening Dental Screen Date: 02/11/25 Did you have a dental visit in the last 12 months?: Yes Did you have a dental problem in the last 6 months where you did not have access to dental care?: No Was dental information given to patient?: Patient has dentist HPI migraine headaches HPI Details The patient is a 39-year-old male presenting with headaches. He reports longstanding headaches that have become more intense, particularly in response to bright lights. The headaches, previously managed by a neurologist, have not significantly improved with past treatment. The patient denies visual changes, weakness, speech difficulties, seizures, recent falls, or head trauma. The headaches persist with a [id number]-mk-[id number]-head location similar to cluster headaches. The patient also reports increased frequency of illnesses, suggesting potential recurrent viral infections characterized by fever and chills. He has received hospital treatment with IV interventions, which provided temporary relief. Additionally, the patient experiences recurrent cold sores, worsened by stress, with an outbreak noted recently. His family history includes colon cancer due to his father's diagnosis and maternal breast cancer history. Social History - Family history significant for father who of colon cancer and mother with breast cancer. - Experiencing stress-related recurrent cold sores. [facility] Medical History Establishing care with new doctor, encounter for Colon cancer screening Overweight (BMI 25.0-29.9) Cold sore Hypertension Migraine headache Asthma Family History Father Heart problem Colon cancer Diabetes Mother Stroke Dementia Bone cancer Social History Household Members: Family Housing: House Do you presently have visiting nurse or other home services: No Alcohol intake: current Alcohol intake frequency: does not drink Patient Tobacco Use Status: Never used Tobacco Substance Use Type: Marijuana Advance Directives Date on File: 08/20/24 service: No Current occupational status: employed Cognitive needs: No Hearing needs: No Vision needs: No Questionnaire PHQ-9 Over the last 2 weeks, how often have you been bothered by any of the following problems? 1. Little interest or pleasure in doing things: not at all 2. Feeling down, depressed, or hopeless: not at all 3. Trouble falling or staying asleep, or sleeping too much: not at all 4. Feeling tired or having little energy: not at all 5. Poor appetite or overeating: not at all 6. Feeling bad about yourself - or that you are a failure or have let yourself or your family down: not at all 7. Trouble concentrating on things, such as reading the newspaper or watching television: not at all 8. Moving or speaking so slowly that other people could have noticed. Or the opposite - being so fidgety or restless that you have been moving around a lot more than usual: not at all 9. Thoughts that you would be better off or of hurting yourself in some way: not at all Total score: 0 Depression Screening Interpretation: Negative Depression Screening Done: Yes 90613 - PHQ-9 Billing: Yes Source: Developed by Drs. Harley Moncada, Kaycee Gomez, Franko Chang and colleagues, with an educational erum from [employer]. Thrive Questionnaire Date Thrive assessed: 02/11/25 I am a: Patient What is your living situation today?: I have a steady place to live Within the past 12 months, did the food you bought not last and you didn't have the money to get more?: Never true Within the past 12 months, did you worry whether your food would run out before you got money to buy more?: Never true Do you have trouble paying for medicines?: No Do you have trouble getting transportation to medical appointments?: No Do you have trouble paying your heating and electricity bill?: No Do you have trouble taking care of your child, family member or friend?: No Do you have trouble with day-to-day activities such as bathing, preparing meals, shopping, managing finances, etc.?: No Are you currently unemployed and looking for a job?: No Are you interested in more education?: No Please select the resources that you would like help with: None THRIVE Score: 0 AUDIT C Alcohol Use Questionnaire (AUDIT-C) 1. How often do you have a drink containing alcohol?: Never 3. How often do you have six or more drinks on one occasion?: Never Total Score: 0 Score Reviewed/Action Taken: No HUBERT-7 AMB Questionnaire HUBERT-7 Date HUBERT - 7 assessed: 02/11/25 Feeling nervous, anxious, or on edge: 1 = Several days Not being able to stop or control worryin = Several days Worrying too much about different things: 1 = Several days Trouble relaxin = Nearly every day Being so restless that it is hard to sit still: 1 = Several days Becoming easily annoyed or irritable: 0 = Not at all Feeling afraid as if something awful might happen: 3 = Nearly every day Total HUBERT-7 score (0-4 normal; 5-9 mild; 10-14 moderate; 15-21 severe): 10 Source: Developed by Drs. Harley Moncada, Kaycee Gomez, Franko Chang and colleagues, with an educational erum from [employer]. HUBERT-7 Assessment Billing HUBERT-7 Assessment Tool: HUBERT-7 Assessment 78472 Review of Systems Const Details: - Neurological: Reports headaches worsening with bright lights; Denies visual changes, weakness, speech difficulties, recent falls, head injuries, and seizures. - Constitutional: Reports recurrent illnesses with fever and chills. - Dermatological: Reports recurrent cold sores. Physical exam (Primary Care) Vital Signs: Last Vital Signs Temp 97.8 F 02/11/25 09:24 Pulse 90 02/11/25 09:24 Resp 16 02/11/25 09:24 BP 142/90 H 02/11/25 09:24 Pulse Ox 99 02/11/25 09:24 Oxygen Delivery Method Room Air 02/11/25 09:24 Care Plan Goal for BP management: <130/90 BMI result Body Mass Index 25.1 BMI Assessment/Plan discussion: High BMI High, discussed plan: lifestyle, weight reduction, dietary, physical activity and alcohol moderation Tobacco/Smoking Status: Tobacco use Status Tobacco use date assessed 02/11/25 02/11/25 09:34 Patient Tobacco Use Status Never used Tobacco 02/11/25 09:34 PHQ-9: PHQ-9 Score PHQ-9: Total score 0 02/11/25 09:55 Depression Screening Interpretation: Negative Thrive Assessment: Date of Thrive Assessment Date Thrive assessed 02/11/25 02/11/25 09:34 Const Other: Appearance: Alert. Oriented X3. No acute distress. Head: Normal external exam. Normocephalic. Atraumatic. Eyes: Pupils are equal, round, and reactive to light. Extraocular movements intact. Conjunctiva and sclera normal. Eyelids normal. Ears: External auditory canal normal. Tympanic membranes normal. No wax noted. Throat: Pharynx normal. Uvula midline. Moist mucous membranes. Sores noted to lower lip. No signs of infection. No angioedema is noted. Neck: Normal inspection. Neck supple. Full range of motion. No adenopathy. Cardiovascular: Normal heart rate and rhythm. Heart sound normal. No murmurs noted. Pulses normal throughout. Respiratory: No respiratory distress. Painless inspiration. Breath sounds normal. No wheezes/rales/rhonchi noted. Chest nontender. No accessory muscle usage noted or decreased air movement noted. Abdomen: Soft and nontender. Back: No costovertebral angle tenderness. Full range of motion noted. Skin: Skin warm and dry. Normal skin color. Normal skin turgor. No rashes/lesions/lacerations noted. Extremities: No lower extremity edema. Extremities exhibit normal range of motion. Neuro: Oriented X 3. No motor deficit. No sensory deficit. Reflexes normal. Results Reviewed Results Reviewed: - Labs: Past reports indicate anemia with a previously noted elevated total protein level. Coding Level of Care Code New Pt Level 4 (44220) Complex EM visit Add On G2211 Diagnoses Establishing care with new doctor, encounter for Z76.89 Migraine headache G43.909 Hypertension I10 Cold sore B00.1 Mild intermittent asthma J45.20 Anemia D64.9 Colon cancer screening Z12.11 Overweight (BMI 25.0-29.9) E66.3 Additional Codes HUBERT-7 Assessment Billing - HUBERT-7 Assessment Tool: HUBERT-7 Assessment 85850 ([id number]) PHQ-9 - 77618 - PHQ-9 Billing: Yes ([id number]) Assessment & Plan Assessment & Plan (1) Establishing care with new doctor, encounter for: Code(s): Z76.89 - Persons encountering health services in other specified circumstances Category: Medical Plan: Patient was a patient of Dr. Abad establishing care with a new provider. (2) Migraine headache: Code(s): G43.909 - Migraine, unspecified, not intractable, without status migrainosus Category: Medical Plan: Initiated sumatriptan for acute management of migraines, with doses allowed every two hours as needed. Neurology follow-up advised. Condition is chronic and stable continue to monitor. (3) Hypertension: Code(s): I10 - Essential (primary) hypertension Category: Medical Plan: Commenced lisinopril 10 mg once daily to address hypertension, with subsequent blood pressure monitoring and one-month follow-up. Condition is new and stable will continue to monitor. 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 Condition is chronic and stable no signs of acute infection. (5) Mild intermittent asthma: Code(s): J45.20 - Mild intermittent asthma, uncomplicated Category: Medical Plan: Patient to continue using his albuterol inhaler as needed for acute exacerbations. No acute exacerbation at this time. Condition is chronic and stable continue to monitor. (6) Anemia: Code(s): D64.9 - Anemia, unspecified Category: Medical Plan: Condition is chronic and stable will reassess H&H. (7) Colon cancer screening: Code(s): Z12.11 - Encounter for screening for malignant neoplasm of colon Category: Medical Plan: Patient has a family history of colon cancer will refer to GI for further evaluation and management possibly recommending colonoscopy due to family history of colon cancer. (8) Overweight (BMI 25.0-29.9): Code(s): E66.3 - Overweight Category: Medical Plan: Patient to improve his diet and exercise regimen. Condition is chronic and stable continue to monitor. Plan Plan Patient was informed and verbally consented to the use of an ambient scribe for clinic note documentation during this visit. 1. Increased Susceptibility To Viral Infections Evaluation for recurrent viral infections through comprehensive blood work. 2. Herpesviral vesicular dermatitis Prescribed valacyclovir for cold sore management with ongoing refills available. 3. Family History Of Colon Cancer Recommended gastroenterology referral for colonoscopy due to significant family history. 4. Anemia Past Conducted further testing with CBC and CMP to reassess for anemia and other conditions. 5. Migraine Initiated sumatriptan for acute management of migraines, with doses allowed every two hours as needed. Neurology follow-up advised. 6. Essential Hypertension Commenced lisinopril 10 mg once daily to address hypertension, with subsequent blood pressure monitoring and one-month follow-up. During our discussion, I addressed the patient's concern regarding persistent headaches and their association with hypertension, determining the need for enhanced headache management via medication shifts, implementing lisinopril for blood pressure regulation, and sumatriptan for acute migraine intervention. Risks, benefits, and the protocol for each medication were clearly communicated, focusing on managing symptoms while minimizing adverse reactions. Given his potent familial risk for colon cancer, a gastroenterology referral was arranged for a preliminary colonoscopy. Furthermore, the prescription of valacyclovir and its episodic usage instructions were conveyed to manage recurrent cold sores conditional on stress triggers. I recommended comprehensive blood work assessments, emphasizing fasting protocols, to address potential underlying conditions, considering his reported susceptibility to infections. Follow-up timelines for hypertension reassessment and blood work updates were meticulously scheduled, ensuring independent monitoring via home blood pressure logs and uninterrupted communication through our patient portal. Orders: Orders Comprehensive [place]. Panel Fast Today Z00.00 - Encounter for general adult medical examination without abnormal findings Magnesium Today Z00.00 - Encounter for general adult medical examination without abnormal findings PSA,Total (Free>4and<10) Today Z00.00 - Encounter for general adult medical examination without abnormal findings TSH reflex Free T4 Today Z00.00 - Encounter for general adult medical examination without abnormal findings Vitamin B12 and Folate Today Z00.00 - Encounter for general adult medical examination without abnormal findings IRON PROFILE Today D64.9 - Anemia, unspecified Complete Blood Count Auto Diff Today Z00.00 - Encounter for general adult medical examination without abnormal findings C Reactive Protein Today Z00.00 - Encounter for general adult medical examination without abnormal findings Erythrocyte Sedimentation Rate Today Z00.00 - Encounter for general adult medical examination without abnormal findings Liver Panel Today Z00.00 - Encounter for general adult medical examination without abnormal findings Lipid Panel Today Z00.00 - Encounter for general adult medical examination without abnormal findings Hemoglobin A1c Today Z00.00 - Encounter for general adult medical examination without abnormal findings Vitamin D 25-OH Total Today Z00.00 - Encounter for general adult medical examination without abnormal findings Ferritin Today D64.9 - Anemia, unspecified Referrals Gastroenterology Referral Z12.11 - Encounter for screening for malignant neoplasm of colon Neurology Referral G43.909 - Migraine, unspecified, not intractable, without status migrainosus Medications: New sumatriptan succinate (Imitrex) take 1 tab at onset of headache; if no relief may repeat 1 tab after at least 2 hrs; max = 4 tabs/24 hr PO 60 tabs 0RF G43.909 - Migraine, unspecified, not intractable, without status migrainosus, I10 - Essential (primary) hypertension lisinopril 10 mg PO DAILY 90 tabs 1RF G43.909 - Migraine, unspecified, not intractable, without status migrainosus, I10 - Essential (primary) hypertension valacyclovir (Valtrex) 1,000 mg PO DAILY 5 days 5 tabs 6RF B00.1 - Herpesviral vesicular dermatitis Discontinued cefuroxime axetil Discontinued Reason: Patient no longer taking 500 mg PO Q12H 6 tabs 0RF dextromethorphan-guaifenesin 10-100 mg/5 mL Discontinued Reason: Patient no longer taking 10 mL PO QID PRN 500 mL 0RF cough hydrocortisone 1% (Cortisone (hydrocortisone)) Discontinued Reason: Patient no longer taking 1 appl topical TID PRN 28.4 grams 0RF skin irritation hydroxyzine HCl Discontinued Reason: Patient no longer taking 25 mg PO TID PRN 14 tabs 0RF itching ondansetron HCl Discontinued Reason: Patient no longer taking 4 mg PO Q8H PRN 10 tabs 0RF nausea and vomiting prednisone Discontinued Reason: Patient no longer taking 50 mg PO DAILY 4 tabs 0RF dicyclomine Discontinued Reason: Patient no longer taking 20 mg PO BID PRN 7 tabs 0RF abdominal pain Patient Instructions: - Take the Imitrex as prescribed at the start of headache episodes, with a follow-up dose after two hours if needed. - Begin lisinopril daily for blood pressure management, and monitor your blood pressure at home, recording it daily. - Use valacyclovir as prescribed for cold sores. - Schedule fasting blood work to assess various health measures and get checked for anemia. - Attend follow-up appointments in one month for blood pressure reassessment. - Await calls for scheduled gastroenterology and neurology referrals. - Manage stress levels and report any new or worsening symptoms immediately.
== END 2025-02-11 09:55 | disposition home or self-care (01) ==
LOC: HO.HMCSH 09:22
PROVIDERS: PCP Internal Medicine; Visit Provider Physician Assistant Medical
DX: Z76.89 Persons encountering health services in other specified circumstances (principal); G43.909 Migraine, unspecified, not intractable, without status migrainosus; I10 Essential (primary) hypertension; B00.1 Herpesviral vesicular dermatitis; J45.20 Mild intermittent asthma, uncomplicated; D64.9 Anemia, unspecified; Z12.11 Encounter for screening for malignant neoplasm of colon; E66.3 Overweight

== ENCOUNTER → 2025-02-11 09:22 | Outpatient (BNVA) | payer OTHER, SELFPAY | PROVIDERS: PCP Internal Medicine; Visit Provider Physician Assistant Medical | DX: Z76.89 Persons encountering health services in other specified circumstances (principal); G43.909 Migraine, unspecified, not intractable, without status migrainosus; I10 Essential (primary) hypertension; B00.1 Herpesviral vesicular dermatitis; J45.20 Mild intermittent asthma, uncomplicated; E66.3 Overweight; Z68.25 Body mass index [BMI] 25.0-25.9, adult; Z79.899 Other long term (current) drug therapy | CPT/HCPCS: 96127; 99202 ==

== ENCOUNTER 2025-02-12 09:24 | Outpatient (REF) | payer OTHER, SELFPAY ==
[2025-02-12 09:49] LABS: MANUAL DIFF FLAG NO
[2025-02-12 11:20] LABS: Basophils Percent Auto 0.3 % (0-2); Eosinophils Absolute Auto 0.2 X10*3/uL (0.0-0.4); Eosinophils Percent Auto 2.5 % (0-4); Hemoglobin 10.8 g/dl (14.0-18.0); Imm Gran Abs Auto 0.06 X10*3/uL (0.00-0.03); Imm Gran Pct Auto 0.9 % (0.0-0.4); Lymphocytes Absolute Auto 1.6 X10*3/uL (1.2-4.9); Lymphocytes Percent Auto 23.8 % (20-40); Mean Corpuscular HGB Conc 31.8 g/dl (31.0-36.0); Mean Corpuscular Hemoglobin 29.4 pg (27.0-33.0); Mean Corpuscular Volume 92.6 fL (80.0-98.0); Mean Platelet Volume 9.3 fL (9.4-12.4); Monocytes Percent Auto 15.3 % (2-11); Neutrophils Absolute Auto 3.8 x10*3/uL (2.0-8.3); Neutrophils Percent Auto 57.2 % (45-73); Platelet Count 360 X10*3/uL (160-400); Red Blood Count 3.67 X10*6/uL (4.60-5.80); Red Cell Distribution Width 13.6 % (11.0-16.0); White Blood Count 6.7 X10*3/uL (4.8-10.8)
[2025-02-12 11:31] LABS: Estimated Average Glucose 108 mg/dL; Hemoglobin A1C 104.2518 umol/L; Hemoglobin A1c % 5.4 % (<6.0); Total Hemoglobin (HGBA1C) 2907.8392 umol/L
[2025-02-12 12:02] LABS: Erythrocyte Sedimentation Rate 34 MM/HR (0-15)
[2025-02-12 12:12] LABS: PSA,Total (Free>4and<10) 0.52 ng/mL (0.00-4.00)
[2025-02-12 12:22] LABS: Folate 13.1 ng/mL (> or = 4.0); Vitamin B12 558 pg/mL (200-900)
[2025-02-12 12:39] LABS: Alanine Aminotransferase 15 U/L (0-40); Albumin Level 4.1 g/dL (3.5-5.0); Alkaline Phosphatase 72 U/L (39-117); Anion Gap 12 (12-20); Aspartate Amino Transferase 24 U/L (5-37); Bilirubin Direct < 0.2 mg/dL (0.0-0.5); Bilirubin Total 0.2 mg/dL (0.0-1.0); Blood Urea Nitrogen 19 mg/dL (9-16); C Reactive Protein 0.69 mg/dL (< or = 0.50); Calcium 9.3 mg/dL (8.4-10.2); Carbon Dioxide 27 mmol/L (22-29); Chloride 105 mmol/L (96-108); Cholesterol 187 mg/dL (<200); Estimated Glomerular Filt Rate > 60; Glucose Fasting 110 mg/dL (60-99); HDL Cholesterol 50 mg/dL (>40); Iron 62 mcg/dL (45-160); LDL Cholesterol Calculated 131 mg/dL (<100); Magnesium 2.1 mg/dL (1.6-2.6); Percent Iron Saturation 26 % (15-50); Potassium 3.7 mmol/L (3.3-5.1); Sodium 140 mmol/L (135-145); Total Iron Binding Capacity 237 mcg/dL (228-428); Total Protein 7.5 g/dL (6.5-8.0); Triglycerides 32 mg/dL (<150); Unsaturated Iron Binding 175 ug/dL
[2025-02-12 12:53] LABS: Ferritin 118 ng/mL (20-250); TSH reflex Free T4 0.42 uIU/mL (0.32-4.0); Vitamin D 25-OH Total 39.3 ng/mL (>30)
== END 2025-02-12 09:25 | disposition home or self-care (01) ==
LOC: HO.LAB 09:24
PROVIDERS: PCP Physician Assistant Medical; Visit Provider Physician Assistant Medical
DX: Z00.00 Encounter for general adult medical examination without abnormal findings (principal); D64.9 Anemia, unspecified
CPT/HCPCS: 36415; 80053; 80061; 80076; 82248; 82306; 82607; 82728; 82746; 83036; 83540; 83735; 84153; 84443; 85025; 85652; 86140

== ENCOUNTER 2025-03-22 11:37 | Outpatient (AMB) | payer OTHER, SELFPAY ==
[2025-03-22 11:45] VITALS: BP 133/79; PULSE 78; RESP 14; TEMP 36.6; O2SAT 99; BMI 25.8
--- NOTE | 2025-03-22 11:45 | A.OFFPC_ITS ---
Vital Signs 03/22/25 11:45 Height 6 ft Weight 190 lb BMI 25.8 BP 133/79 Blood Pressure Location Rt brachial Position Sitting Respiration 14 Pulse 78 Pulse Source Pulse Oximeter Temp 97.8 F Temp Source Temporal Artery Scan Pulse Oximetry (%) 99 Oxygen Delivery Method Room Air Intake Visit Reasons: s/p rehab Food Service Associate Required: No Accompanied by: Self / Same As Patient Allergies No Known Allergies Allergy (Verified 03/22/25 13:38) Medication List - Last Reconciled 03/22/25 by Marlee Duarte PA-C acetaminophen (Tylenol Extra Strength) 500 mg PO Q6H PRN albuterol sulfate 90 mcg/actuation (Ventolin HFA) 2 puffs inhalation Q4-6H PRN lisinopril 10 mg PO DAILY quetiapine (Seroquel) 50 mg PO BEDTIME sumatriptan succinate (Imitrex) take 1 tab at onset of headache; if no relief may repeat 1 tab after at least 2 hrs; max = 4 tabs/24 hr PO valacyclovir (Valtrex) 1,000 mg PO DAILY 5 days Tobacco use date assessed: 03/22/25 Dental Screening Dental Screen Date: 02/11/25 HPI s/p rehab HPI Details The patient is a 39-year-old male presenting for a follow-up regarding his recent substance use disorder treatment and associated health issues. He completed a 30-day rehabilitation program in [place] for heroin addiction and has noted significant improvement post-rehabilitation, abstaining from heroin use since discharge. He has a history of essential hypertension and taking lisinopril as prescribed. Blood pressure in range today. The patient has recurrent herpes simplex labialis, exacerbated by stress and illness, for which he uses Valtrex. Additionally, a history of migraines is noted, with planned attempts to reestablish contact with his neurologist. His treatment for generalized anxiety disorder and depression includes Seroquel 50 mg for sleep. His opioid use began with post-incarceration Percocet use, escalating to heroin due to the cheaper cost of heroin. He mentions receiving a long-acting injection to aid with opioid cravings, reporting no cravings at present. The patient is taking steps to address these conditions with an existing supportive medication regimen for anxiety and depression. Social History - Substance Use: Former heroin use, init iated due to social influence and financial constraints. - Family: Lives with children and partne r. - Living Situation: Resides with family, providing self-care with support from his partner. - Stress and Pressure: Significant stres s from family and historical legal issue s, attending rehabilitation for substance abuse management. - Education and Employment: Employed, no details provided on current job or education background. - Familial and Social Support: Supported by his partner and motivated by his responsibilities towards his children. [facility] Medical History (Updated 03/22/25 @ 13:43 by Marlee Duarte PA-C) Depression Anxiety History of heroin use Establishing care with new doctor, encounter for Colon cancer screening Overweight (BMI 25.0-29.9) Cold sore Hypertension Migraine headache Asthma Family History Father Heart problem Colon cancer Diabetes Mother Stroke Dementia Bone cancer Social History Household Members: Family Housing: House Do you presently have visiting nurse or other home services: No Alcohol intake: current Alcohol intake frequency: does not drink Patient Tobacco Use Status: Never used Tobacco Substance Use Type: Marijuana Advance Directives Date on File: 08/20/24 service: No Current occupational status: employed Cognitive needs: No Hearing needs: No Vision needs: No Questionnaire PHQ-9 Over the last 2 weeks, how often have you been bothered by any of the following problems? 1. Little interest or pleasure in doing things: not at all 2. Feeling down, depressed, or hopeless: not at all 3. Trouble falling or staying asleep, or sleeping too much: not at all 4. Feeling tired or having little energy: not at all 5. Poor appetite or overeating: not at all 6. Feeling bad about yourself - or that you are a failure or have let yourself or your family down: not at all 7. Trouble concentrating on things, such as reading the newspaper or watching television: not at all 8. Moving or speaking so slowly that other people could have noticed. Or the opposite - being so fidgety or restless that you have been moving around a lot more than usual: not at all 9. Thoughts that you would be better off or of hurting yourself in some way: not at all Total score: 0 Depression Screening Interpretation: Negative Depression Screening Done: Yes 18862 - PHQ-9 Billing: Yes Source: Developed by Drs. Harley Moncada, Kaycee Gomez, Franko Chang and colleagues, with an educational erum from [employer]. Thrive Questionnaire Date Thrive assessed: 02/11/25 I am a: Patient What is your living situation today?: I have a steady place to live Within the past 12 months, did the food you bought not last and you didn't have the money to get more?: Never true Within the past 12 months, did you worry whether your food would run out before you got money to buy more?: Never true Do you have trouble paying for medicines?: No Do you have trouble getting transportation to medical appointments?: No Do you have trouble paying your heating and electricity bill?: No Do you have trouble taking care of your child, family member or friend?: No Do you have trouble with day-to-day activities such as bathing, preparing meals, shopping, managing finances, etc.?: No Are you currently unemployed and looking for a job?: No Are you interested in more education?: No Please select the resources that you would like help with: None THRIVE Score: 0 AUDIT C Alcohol Use Questionnaire (AUDIT-C) 1. How often do you have a drink containing alcohol?: Never 3. How often do you have six or more drinks on one occasion?: Never Total Score: 0 Score Reviewed/Action Taken: No HUBERT-7 AMB Questionnaire HUBERT-7 Date HUBERT - 7 assessed: 02/11/25 Feeling nervous, anxious, or on edge: 1 = Several days Not being able to stop or control worryin = Several days Worrying too much about different things: 1 = Several days Trouble relaxin = Nearly every day Being so restless that it is hard to sit still: 1 = Several days Becoming easily annoyed or irritable: 0 = Not at all Feeling afraid as if something awful might happen: 3 = Nearly every day Total HUBERT-7 score (0-4 normal; 5-9 mild; 10-14 moderate; 15-21 severe): 10 Source: Developed by Kaycee Andrew Kurt Kroenke and colleagues, with an educational erum from [employer]. HUBERT-7 Assessment Billing HUBERT-7 Assessment Tool: HUBERT-7 Assessment 51402 Review of Systems Const Details: - Neurological: Reports migraines, currently managing with available medication. - Psychiatric: Reports depression and anxiety, being managed with Seroquel. - Respiratory: Denies current respiratory symptoms; history of Ventolin inhaler use not currently available. - Dermatological: Reports recurring stress-induced herpes simplex labialis. - Cardiovascular: Reports stable blood pressure, though variability noted in home measurements. - General: Denies current substance use or cravings following rehabilitation. Physical exam (Primary Care) Vital Signs: Last Vital Signs Temp 97.8 F 03/22/25 11:45 Pulse 78 03/22/25 11:45 Resp 14 03/22/25 11:45 BP 141/79 H 03/22/25 11:45 Pulse Ox 99 03/22/25 11:45 Oxygen Delivery Method Room Air 03/22/25 11:45 Care Plan Goal for BP management: <140/90 at Goal BMI result Body Mass Index 25.8 BMI Assessment/Plan discussion: High BMI High, discussed plan: lifestyle, weight reduction, dietary, physical activity and alcohol moderation Tobacco/Smoking Status: Tobacco use Status Tobacco use date assessed 03/22/25 03/22/25 11:58 Patient Tobacco Use Status Never used Tobacco 03/22/25 11:58 PHQ-9: PHQ-9 Score PHQ-9: Total score 0 03/22/25 12:01 Depression Screening Interpretation: Negative Thrive Assessment: Date of Thrive Assessment Date Thrive assessed 02/11/25 03/22/25 11:58 Const Other: Appearance: Alert. Oriented X3. No acute distress. Head: Normal external exam. Normocephalic. Atraumatic. Eyes: Pupils are equal, round, and reactive to light. Extraocular movements intact. Conjunctiva and sclera normal. Eyelids normal. Throat: Pharynx normal. Uvula midline. Moist mucous membranes. Neck: Normal inspection. Neck supple. Full range of motion. No adenopathy. Thyroid Normal. No meningeal signs. No neck mass noted. Cardiovascular: Normal heart rate and rhythm. Heart sound normal. No murmurs noted. Pulses normal throughout. Respiratory: No respiratory distress. Painless inspiration. Breath sounds normal. No wheezes/rales/rhonchi noted. Chest nontender. No accessory muscle usage noted or decreased air movement noted. Back: Full range of motion noted. Skin: Skin warm and dry. Normal skin color. Normal skin turgor. No rashes/lesions/lacerations noted. Extremities: Extremities exhibit normal range of motion. Neuro: Oriented X 3. No motor deficit. No sensory deficit. Reflexes normal. Coding Level of Care Code Est Pt Level 4 (56630) Complex EM visit Add On G2211 Diagnoses History of heroin use F11.91 Hypertension I10 Cold sore B00.1 Migraine headache G43.909 Anxiety F41.9 Depression F32.A Additional Codes HUBERT-7 Assessment Billing - HUBERT-7 Assessment Tool: HUBERT-7 Assessment 90880 ([id number]) PHQ-9 - 40848 - PHQ-9 Billing: Yes ([id number]) Time Spent (min) 45 Assessment & Plan Assessment & Plan (1) History of heroin use: Code(s): F11.91 - Opioid use, unspecified, in remission Category: Social Hx Plan: Plan: Maintain adherence to post-rehabilitation strategies to prevent relapse, with ongoing evaluation of long-acting injectable therapy effects on craving control. (2) Hypertension: Code(s): I10 - Essential (primary) hypertension Category: Medical Plan: Patient to continue lisinopril 10 mg daily. Condition is chronic and stable continue to monitor. (3) Cold sore: Code(s): B00.1 - Herpesviral vesicular dermatitis Category: Medical Plan: Plan: Prescribe Valtrex upon initial symptom manifestation to control outbreaks, keep stock for recurrent issues. Condition is chronic and stable continue to monitor. (4) Migraine headache: Code(s): G43.909 - Migraine, unspecified, not intractable, without status migrainosus Category: Medical Plan: Plan: Encourage proactive neurologist engagement for exploring additional therapeutic avenues if needed, with attention to prescription sumatriptan. Condition is chronic and stable continue to monitor. (5) Anxiety: Code(s): F41.9 - Anxiety disorder, unspecified Category: Medical Plan: Plan: Continue Seroquel for anxiety-induced insomnia; watch for any side effects. Condition is chronic and stable continue to monitor. (6) Depression: Code(s): F32.A - Depression, unspecified Category: Medical Plan: Plan: Continue present treatment course, adjust if clinical evaluation indicates insufficient response or side effects. Condition is chronic and stable continue to monitor. Plan Plan Patient was informed and verbally consented to the use of an ambient scribe for clinic note documentation during this visit. 1. Substance Use Disorder, Opioid Plan: Maintain adherence to post-rehabilitation strategies to prevent relapse, with ongoing evaluation of long-acting injectable therapy effects on craving control. 2. Essential Hypertension Plan: Patient to continue lisinopril 10 mg daily. Condition is chronic and stable continue to monitor.. 3. Herpes Simplex Labialis Plan: Prescribe Valtrex upon initial symptom manifestation to control outbreaks, keep stock for recurrent issues. 4. Migraine Plan: Encourage proactive neurologist engagement for exploring additional therapeutic avenues if needed, with attention to prescription sumatriptan. 5. Generalized Anxiety Disorder Plan: Continue Seroquel for anxiety-induced insomnia; watch for any side effects. 6. Depression Plan: Continue present treatment course, adjust if clinical evaluation indicates insufficient response or side effects. We discussed the patient's recent completion of rehabilitation for opioid use and the effectiveness of the current long-acting injectable in preventing cravings. I emphasized the importance of adhering strictly to prescribed medications and therapies to ensure sustained substance abstinence. Discussions included adapting blood pressure monitoring to avoid incorrect cuff size and assessing for accurate readings. For recurrent herpes simplex, I advised initiating Valtrex treatment at the first signs of outbreak. Additionally, for migraines, I encouraged follow-up with a neurologist to broaden management options. We reviewed the current management strategies for anxiety and depression and confirmed the sleep-effective dosage of Seroquel. As the patient continues to manage these conditions, we agreed on necessary follow-ups to ensure adequate engagement and management of symptoms. Orders: Orders Comprehensive [place]. Panel Fast Today Z00.00 - Encounter for general adult medical examination without abnormal findings Complete Blood Count Auto Diff Today Z00.00 - Encounter for general adult medical examination without abnormal findings Medications: New quetiapine (Seroquel) 50 mg PO BEDTIME 90 tabs 1RF Changed From albuterol sulfate 90 mcg/actuation (Ventolin HFA) 2 puffs inhalation RQ4H PRN 8.5 grams 0RF sob To albuterol sulfate 90 mcg/actuation (Ventolin HFA) 2 puffs inhalation Q4-6H PRN 8.5 grams 1RF sob Refilled valacyclovir (Valtrex) 1,000 mg PO DAILY 5 days 5 tabs 8RF B00.1 - Herpesviral vesicular dermatitis Patient Instructions: - Monitor blood pressure at home using the correct cuff size. - Use Valtrex at the first sign of any cold sore outbreak or prodromal symptom. - Call or visit the neurologist in person to discuss your migraine treatment plan. - Take Seroquel at bedtime as prescribed for anxiety-related sleep disturbances. - Maintain sobriety and continue with injection therapy for opioid maintenance. - Follow up in three months or sooner if experiencing any new or worsening symptoms. - Sign up for the patient portal to track medical information and communicate easily regarding prescriptions and appointments.
== END 2025-03-22 12:22 | disposition home or self-care (01) ==
LOC: HO.HMCSH 11:37
PROVIDERS: PCP Physician Assistant Medical; Visit Provider Physician Assistant Medical
DX: F11.91 Opioid use, unspecified, in remission (principal); I10 Essential (primary) hypertension; B00.1 Herpesviral vesicular dermatitis; G43.909 Migraine, unspecified, not intractable, without status migrainosus; F41.9 Anxiety disorder, unspecified; F32.A Depression, unspecified

== ENCOUNTER → 2025-03-22 11:37 | Outpatient (BNVA) | payer OTHER, SELFPAY | PROVIDERS: PCP Physician Assistant Medical; Visit Provider Physician Assistant Medical | DX: F11.91 Opioid use, unspecified, in remission (principal); I10 Essential (primary) hypertension; B00.1 Herpesviral vesicular dermatitis; G43.909 Migraine, unspecified, not intractable, without status migrainosus; F41.1 Generalized anxiety disorder; F32.A Depression, unspecified; Z79.899 Other long term (current) drug therapy; Z13.31 Encounter for screening for depression | CPT/HCPCS: 96127; 99212 ==

== ENCOUNTER 2025-03-26 10:41 | Outpatient (REF) | payer OTHER, SELFPAY ==
[2025-03-26 10:49] LABS: MANUAL DIFF FLAG NO
[2025-03-26 11:17] LABS: Basophils Percent Auto 0.5 % (0-2); Eosinophils Absolute Auto 0.3 X10*3/uL (0.0-0.4); Hematocrit 36.9 % (42.0-52.0); Hemoglobin 12.1 g/dl (14.0-18.0); Imm Gran Abs Auto 0.01 X10*3/uL (0.00-0.03); Imm Gran Pct Auto 0.2 % (0.0-0.4); Lymphocytes Absolute Auto 1.5 X10*3/uL (1.2-4.9); Lymphocytes Percent Auto 23.9 % (20-40); Mean Corpuscular HGB Conc 32.8 g/dl (31.0-36.0); Mean Corpuscular Hemoglobin 29.8 pg (27.0-33.0); Mean Corpuscular Volume 90.9 fL (80.0-98.0); Monocytes Absolute Auto 0.7 X10*3/uL (0.1-1.2); Monocytes Percent Auto 10.4 % (2-11); Neutrophils Absolute Auto 3.8 x10*3/uL (2.0-8.3); Platelet Count 286 X10*3/uL (160-400); Red Blood Count 4.06 X10*6/uL (4.60-5.80); Red Cell Distribution Width 13.4 % (11.0-16.0); White Blood Count 6.3 X10*3/uL (4.8-10.8)
[2025-03-26 11:51] LABS: Alanine Aminotransferase 9 U/L (0-40); Albumin Level 4.1 g/dL (3.5-5.0); Alkaline Phosphatase 84 U/L (39-117); Anion Gap 10 (12-20); Aspartate Amino Transferase 15 U/L (5-37); Bilirubin Total 0.2 mg/dL (0.0-1.0); Blood Urea Nitrogen 17 mg/dL (9-16); Calcium 9.1 mg/dL (8.4-10.2); Carbon Dioxide 32 mmol/L (22-29); Chloride 104 mmol/L (96-108); Estimated Glomerular Filt Rate > 60; Glucose Fasting 91 mg/dL (60-99); Iron 44 mcg/dL (45-160); Percent Iron Saturation 17 % (15-50); Potassium 4.2 mmol/L (3.3-5.1); Sodium 142 mmol/L (135-145); Total Iron Binding Capacity 258 mcg/dL (228-428); Total Protein 7.6 g/dL (6.5-8.0); Unsaturated Iron Binding 214 ug/dL
[2025-03-26 12:15] LABS: Ferritin 56 ng/mL (20-250)
== END 2025-03-26 10:42 | disposition home or self-care (01) ==
LOC: HO.LAB 10:41
PROVIDERS: PCP Physician Assistant Medical; Visit Provider Physician Assistant Medical
DX: Z00.00 Encounter for general adult medical examination without abnormal findings (principal); D64.9 Anemia, unspecified
CPT/HCPCS: 36415; 80053; 82728; 83540; 85025

== ENCOUNTER 2025-04-16 09:56 | Outpatient (REF) | payer OTHER, SELFPAY ==
--- NOTE | ~2025-04-16 | XR_ITS ---
EXAMINATION: XR CHEST CLINICAL INFORMATION: R05.9 - Cough, unspecified COMPARISON: January 28, 2025 TECHNIQUE: 2 views of the chest were obtained. FINDINGS: No significant abnormality is noted involving the heart, lungs, mediastinum, bony thorax or soft tissues. XR/XR chest 2V IMPRESSION: No acute disease Electronically signed by: Delano Vang MD 04/16/2025 11:32 AM EDT
[2025-04-16 11:07] LABS: MANUAL DIFF FLAG NO
[2025-04-16 11:34] LABS: Basophils Percent Auto 0.4 % (0-2); Eosinophils Absolute Auto 0.1 X10*3/uL (0.0-0.4); Eosinophils Percent Auto 2.8 % (0-4); Hematocrit 38.9 % (42.0-52.0); Hemoglobin 13.1 g/dl (14.0-18.0); Imm Gran Abs Auto 0.01 X10*3/uL (0.00-0.03); Imm Gran Pct Auto 0.2 % (0.0-0.4); Lymphocytes Absolute Auto 1.5 X10*3/uL (1.2-4.9); Lymphocytes Percent Auto 33.2 % (20-40); Mean Corpuscular HGB Conc 33.7 g/dl (31.0-36.0); Mean Corpuscular Hemoglobin 30.4 pg (27.0-33.0); Mean Corpuscular Volume 90.3 fL (80.0-98.0); Mean Platelet Volume 9.1 fL (9.4-12.4); Monocytes Absolute Auto 0.5 X10*3/uL (0.1-1.2); Monocytes Percent Auto 10.8 % (2-11); Neutrophils Absolute Auto 2.4 x10*3/uL (2.0-8.3); Neutrophils Percent Auto 52.6 % (45-73); Platelet Count 234 X10*3/uL (160-400); Red Blood Count 4.31 X10*6/uL (4.60-5.80); Red Cell Distribution Width 14.1 % (11.0-16.0); White Blood Count 4.6 X10*3/uL (4.8-10.8)
[2025-04-16 12:03] LABS: Iron 68 mcg/dL (45-160); Percent Iron Saturation 24 % (15-50); Total Iron Binding Capacity 284 mcg/dL (228-428); Unsaturated Iron Binding 216 ug/dL
== END 2025-04-16 09:57 | disposition home or self-care (01) ==
LOC: HO.XRAY 09:56
PROVIDERS: PCP Physician Assistant Medical; Visit Provider Nurse Practitioner Family
DX: R05.1 Acute cough (principal); D64.9 Anemia, unspecified; K21.9 Gastro-esophageal reflux disease without esophagitis; K59.03 Drug induced constipation; F11.11 Opioid abuse, in remission
CPT/HCPCS: 36415; 71046; 83540; 85025; 99202

== ENCOUNTER 2025-04-16 09:56 | Outpatient (AMB) | payer OTHER, SELFPAY ==
--- NOTE | 2025-04-16 09:58 | MHC.OFFVIS ---
Vital Signs 04/16/25 10:04 Height 6 ft Weight 187 lb 6.287 oz BMI 25.4 BP 125/61 Blood Pressure Location Lt brachial Position Sitting Pulse 73 Intake Visit Reasons: Colonoscopy Screening Intake Note: Landon presents in the office as a colonoscopy screening. CC: Allergies No Known Allergies Allergy (Verified 04/16/25 10:04) Medication List - Last Reconciled 04/16/25 by Zulay Lan CNP acetaminophen (Tylenol Extra Strength) 500 mg PO Q6H PRN albuterol sulfate 90 mcg/actuation (Ventolin HFA) 2 puffs inhalation Q4-6H PRN buprenorphine ER (Sublocade) mg subcut lisinopril 10 mg PO DAILY quetiapine (Seroquel) 50 mg PO BEDTIME sertraline 25 mg PO DAILY sumatriptan succinate (Imitrex) take 1 tab at onset of headache; if no relief may repeat 1 tab after at least 2 hrs; max = 4 tabs/24 hr PO valacyclovir (Valtrex) 1,000 mg PO DAILY 5 days HPI HPI Colonoscopy Screening: Details: Patient is a 39-year-old male with PMH of anemia, depression, anxiety, opioid use disorder remission, hypertension, migraines and asthma. Referred by PCP for pre colonoscopy screening Landon reports early pre-colonoscopy screening owing to a significant family history of colon cancer. His father two years ago from colon cancer, and his paternal grandfather also had the condition. His constipation, previously induced by heroin use, persists somewhat with his current buprenorphine treatment, causing bowel movements approximately twice a week without straining or blood. He denies having abdominal pain, nausea, vomiting, or any stool changes from constipation to diarrhea. He reports having acid reflux symptoms daily, experiencing heartburn every day, and regurgitating a yellow substance 3-4 times a week, particularly in the mornings. He gets some relief from TUMs. He is otherwise asymptomatic concerning gastrointestinal issues. He has a history of occasional heroin and cocaine use, but has been sober for three months. Patient denies: fever/chills, appetite changes, dysphasia, unintentional wt loss or melena/hematochezia. Social History - Diet: Recently improved from a diet high in junk food to healthier eating habits - Alcohol/Tobacco/Drug Use: No current use of alcohol or drugs; past significant heroin and cocaine use; brief past tobacco use - family hx as below -denies personal hx of CA -denies significant cardiopulmonary history -tolerated anesthesia in the past without difficulty. [facility] Medical History (Updated 04/16/25 @ 15:24 by Zulay Lan CNP) Opioid use disorder, mild, in early remission Constipation Acid reflux Anemia Cough Depression Anxiety History of heroin use Establishing care with new doctor, encounter for Colon cancer screening Overweight (BMI 25.0-29.9) Cold sore Hypertension Migraine headache Asthma Surgical History (Updated 04/16/25 @ 10:06 by SYLWIA Diaz) Hx of colonoscopy History of esophagogastroduodenoscopy (EGD) Hx of cholecystectomy Family History (Updated 04/16/25 @ 10:05 by SYLWIA Diaz) Father Heart problem Colon cancer Diabetes Mother Stroke Dementia Bone cancer Paternal Grandfather Colon cancer Family/Other Colon cancer Social History Household Members: Family Housing: House Do you presently have visiting nurse or other home services: No Alcohol intake: current Alcohol intake frequency: does not drink Patient Tobacco Use Status: Never used Tobacco Substance Use Type: Marijuana Advance Directives Date on File: 08/20/24 service: No Current occupational status: employed Cognitive needs: No Hearing needs: No Vision needs: No Review of Systems Const Reports as per HPI ENT Reports as per HPI Card Reports as per HPI Resp Reports as per HPI GI Reports as per HPI Reports as per HPI Physical Exam Vital Signs: Last Vital Signs Pulse 73 04/16/25 10:04 BP 125/61 04/16/25 10:04 BMI result Body Mass Index 25.4 Const General: healthy appearing, no acute distress and well developed Nutritional Appearance: well nourished Orientation/consciousness: patient oriented x3 HEENT Head: Yes normal to inspection, Yes normocephalic and Yes atraumatic Face and sinus: Yes normal facial exam Eyes General: appearance normal, both eyes and all related structures Neck Neck: Yes normal visual inspection Resp Effort & Inspection: normal respiratory effort, able to speak in complete sentences, no tracheal deviation and symmetric chest movement Auscultation: crackles diffuse and wheezes inspiratory wheezes and throughout Cardio Jugular venous distension: no JVD Rate: regular rate Rhythm: regular rhythm Heart sounds: S1 normal heart sound present, S2 normal heart sound present, no gallops and no murmurs GI Inspection: Yes normal to inspection and No distended Palpation (GI): Soft to palpation, not firm, nontender and No hepatosplenomegaly present Auscultation: normal bowel sounds Neuro General: patient oriented x3 Gait exam (Neuro): Normal gait present Psych Appearance: grossly normal Mental Status: mental status grossly normal Speech and movement: Normal speech and movement present Affect: normal affect Attitude: cooperative Thought process: Normal thought process present Thought content: Normal thought content present Insight: Good insight present (Psych) Judgement: Good judgement present (Psych) Assessment & Plan Assessment & Plan (1) Cough: Code(s): R05.9 - Cough, unspecified Category: Medical Qualifiers: Cough type: acute Qualified Code(s): R05.1 - Acute cough Plan: New cough x4 days, hx pneumonia 4 mo ago, chest exam with wheeze/crackles; no fever/SOB. Additional Tests: CXR ordered to r/o pneumonia/other pathology Medications: Continue current asthma regimen Follow-Up: F/U if cough persists, worsens, or if new sx (fever, SOB); review CXR results-No news is good news (2) Anemia: Code(s): D64.9 - Anemia, unspecified Category: Medical Qualifiers: Anemia type: unspecified type Qualified Code(s): D64.9 - Anemia, unspecified Plan: Slightly low iron on recent labs; no current supplementation. Additional Tests: Repeat iron studies ordered (3) Colon cancer screening: Code(s): Z12.11 - Encounter for screening for malignant neoplasm of colon Category: Medical Plan: Strong family hx (father, grandfather); early screening indicated. Additional Tests: Colonoscopy scheduled; EGD to be performed concurrently Medications: -prescriptions for laxative tablets and MiraLax sent to pharmacy; instructions for Gatorade purchase and clear liquid diet given. Patient educated on scheduling process, procedure preparation, including avoiding certain foods and ensuring clear liquid intake Advised on necessity for ride post-procedure due to sedation. (4) Acid reflux: Code(s): K21.9 - Gastro-esophageal reflux disease without esophagitis Category: Medical Qualifiers: Esophagitis presence: esophagitis presence not specified Qualified Code(s): K21.9 - Gastro-esophageal reflux disease without esophagitis Plan: Daily heartburn, frequent regurgitation, and chronic symptoms refractory to antacids (Tums) suggest GERD. Family hx of GI malignancy increases concern for mucosal changes. Additional Tests: EGD recommended at time of colonoscopy to assess for esophagitis, Mendoza?s, or other pathology. Medications: - Omeprazole 20 mg PO QAM - Famotidine 20 mg PO PRN for breakthrough symptoms Encouraged to continue omeprazole as prescribed, taken approximately 30-60 minutes before meals. Education on GERD prevention-Advised against heavy meals. Encouraged small frequent meals VS large meals, remaining upright after meals x 2-3 hours, avoid late night eating/spicy foods/caffeine/alcohol/known triggers and tight fitting clothes (5) Constipation: Code(s): K59.00 - Constipation, unspecified Category: Medical Qualifiers: Constipation type: drug induced constipation Qualified Code(s): K59.03 - Drug induced constipation Plan: Ongoing drug-induced constipation (buprenorphine), BM 2x/week, no straining or blood, not on bowel regimen. Additional Tests: None indicated at this time; monitor for new/worsening sx. Medications: - Polyethylene glycol (Miralax) 1 capful in 8 oz fluid QAM Reinforced lifestyle modifications to promote regularity: -higher fiber diet, examples provided -adequate hydration with water -150 minutes of moderate intensity exercise per week (6) Opioid use disorder, mild, in early remission: Code(s): F11.11 - Opioid abuse, in remission Category: Medical Plan: recovery X 3 months established with [facility] for prescription management of Qmonthly buprenorphine ER injections. Plan Follow-up after endoscopy or sooner as needed Time: I spent a total of 45 minutes on the date of encounter which includes: Preparing to see the patient (reviewed previous documentation, test results and medical history) Performing a medically appropriate exam and/or evaluation Ordering medications, tests, and procedures Documenting clinical information in the health record Orders: Orders Complete Blood Count Auto Diff Today D64.9 - Anemia, unspecified IRON PROFILE Today D64.9 - Anemia, unspecified XR chest 2V Today R05.9 - Cough, unspecified Medications: New bisacodyl Take four tablets once for 1 day per colonoscopy instructions 5 mg PO ONCE 4 tabs 0RF 1 day polyethylene glycol 3350 (Miralax) Take 17G (one cap full) daily with 8oz of water 17 grams PO DAILY 510 grams 2RF constipation 30 days polyethylene glycol 3350 (Miralax) per colonoscopy prep instructions 238 grams PO ONCE 238 grams 0RF omeprazole 20 mg PO DAILY 90 caps 1RF famotidine Take one tablet daily as needed for acid reflux 20 mg PO DAILY PRN 90 tabs 1RF GERD Coding Level of Care Code New Pt New Pt Level 4 (28550) Patient Type New Diagnoses Acute cough R05.1 Cough type: acute Anemia, unspecified type D64.9 Anemia type: unspecified type Colon cancer screening Z12.11 Gastroesophageal reflux disease, unspecified whether esophagitis present K21.9 Esophagitis presence: esophagitis presence not specified Drug-induced constipation K59.03 Constipation type: drug induced constipation Opioid use disorder, mild, in early remission F11.11
[2025-04-16 10:04] VITALS: BP 125/61; PULSE 73; BMI 25.4
== END 2025-04-16 10:39 | disposition home or self-care (01) ==
LOC: HO.HGI 09:57
PROVIDERS: PCP Physician Assistant Medical; Visit Provider Nurse Practitioner Family
DX: Z01.818 Encounter for other preprocedural examination (principal); Z12.11 Encounter for screening for malignant neoplasm of colon; D64.9 Anemia, unspecified; K21.9 Gastro-esophageal reflux disease without esophagitis; R05.1 Acute cough; K59.03 Drug induced constipation
CPT/HCPCS: 99204

== ENCOUNTER → 2025-04-16 11:06 | Outpatient (BNV) | payer OTHER, SELFPAY | PROVIDERS: PCP Physician Assistant Medical; Visit Provider Radiology Diagnostic Radiology | DX: R05.9 Cough, unspecified (principal) | CPT/HCPCS: 71046 ==

== ENCOUNTER 2025-04-17 19:03 | Emergency (ER) | payer OTHER, SELFPAY ==
--- NOTE | ~2025-04-17 | XR_ITS ---
CLINICAL HISTORY: SOB 2 view chest x-ray Comparison: CR/SR - XR CHEST 2V - 04/16/25 11:24 EDT Findings: The lungs are clear. Normal size heart. No acute fracture. IMPRESSION: 1. No acute findings. This document has been electronically signed by: Latasha Clement MD on 04/17/2025 20:41:20
[2025-04-17 19:05] VITALS: BP 119/80; PULSE 75; RESP 20; TEMP 36.4; O2SAT 96; BMI 26.2
--- NOTE | 2025-04-17 19:05 | ED_ITS ---
HPI - General Adult General Chief complaint: Dyspnea Stated complaint: SOB; Wheezing Time Seen by Provider: 04/17/25 19:50 Source: patient Mode of arrival: ambulatory Limitations: no limitations History of Present Illness ED Provider: Reba Choi NP HPI narrative: Patient is a 39-year-old male who presents emergency department for evaluation. He had an outpatient appointment yesterday with Gastroenterology, this was for screening for colonoscopy as he has a family history of colon cancer. He has been experiencing intermittent nausea with bilious emesis at least 3-4 times weekly worse in the morning, associated heartburn daily intermittent relief from Tums, intermittent abdominal pain primarily to the epigastric region. Symptom onset was 5 years ago after his cholecystectomy. Has not sought prior evaluation for this. Prescription yesterday was sent for omeprazole and famotidine he has not yet taken this. He denies any constipation or diarrhea, no palpable lumps or masses to be abdomen. He had reported to Gastroenterology yesterday that he has been experiencing cough over the past 4 days, was treated for pneumonia approximately 4 months ago. Yesterday and today he has been experiencing increasing shortness of breath, reports a history of childhood asthma. Has no associated chest pain no recent fevers or chills, cough is nonproductive. He denies known sick contacts. Related Data Home Medications ?Medication ?Instructions ?Recorded ?Confirmed buprenorphine 300 mg/1.5 mL mg subcut 04/16/25 5 solution,exten.rel.subcutaneous syringe (Sublocade) sertraline 25 mg tablet 25 mg PO DAILY 04/16/2503/25 Previous Rx's ?Medication ?Instructions ?Recorded acetaminophen 500 mg tablet 500 mg PO Q6H PRN pain #30 tabs 11/05/23 (Tylenol Extra Strength) lisinopril 10 mg tablet 10 mg PO DAILY #90 tabs 01/23 11/17 sumatriptan succinate 25 mg tablet See Rx Instructions PO .COMPLEX 02/11/25 (Imitrex) #60 tabs albuterol sulfate 90 mcg/actuation 2 puff inhalation Q 4-6H PRN sob 03/22/25 aerosol inhaler (Ventolin HFA) #8.5 grams quetiapine 50 mg tablet (Seroquel) 50 mg PO BEDTIME #9 0 tabs 03/22/25 valacyclovir 1 gram tablet 1,000 mg PO DAILY 5 days #5 tabs 03/22/25 (Valtrex) bisacodyl 5 mg tablet,delayed 5 mg PO ONCE 1 day #4 ta bs 04/16/25 release famotidine 20 mg tablet 20 mg PO DAILY PRN GERD #90 tabs 04/16/25 omeprazole 20 mg capsule,delayed 20 mg PO DAILY #90 ca ps 04/16/25 release polyethylene glycol 3350 17 17 g PO DAILY constipation 30 days 04/16/25 gram/dose oral powder (Miralax) #510 grams polyethylene glycol 3350 17 238 g PO ONCE #238 grams 0 04/16/25 gram/dose oral powder (Miralax) albuterol sulfate 90 mcg/actuation 2 puff inhalation Q 4-6H PRN 04/17/25 aerosol inhaler (Ventolin HFA) shortness of breath or wheezing #6.7 grams prednisone 20 mg tablet 20 mg PO DAILY #5 tabs 04/17 Allergies Allergy/AdvReac Type Severity Reaction Status Date / Time No Known Allergies Allergy Verified 04/17/25 19:07 Review of Systems 2 Review of Systems: Yes all other systems are reviewed and are negative PMFSH Past Medical History Attestation statement: The following information was validated with the patient. Source: old records reviewed Medical History Opioid use disorder, mild, in early remission Constipation Acid reflux Anemia Cough Depression Anxiety History of heroin use Establishing care with new doctor, encounter for Colon cancer screening Overweight (BMI 25.0-29.9) Cold sore Hypertension Migraine headache Asthma Surgical History Hx of colonoscopy History of esophagogastroduodenoscopy (EGD) Hx of cholecystectomy Family History Family History (Updated 04/16/25 @ 10:05 by SYLWIA Diaz) Father Heart problem Colon cancer Diabetes Mother Stroke Dementia Bone cancer Paternal Grandfather Colon cancer Family/Other Colon cancer Social History Social History Household Members: Family Housing: House Do you presently have visiting nurse or other home services: No Alcohol intake: current Alcohol intake frequency: does not drink Patient Tobacco Use Status: Never used Tobacco Smoked in Last 30 Days: No Use of substances other than those prescribed or required for medical reasons: No Substance Use Type: Marijuana Advance Directives: Yes Advance Directives on File: Yes Advance Directives Date on File: 08/20/24 service: No Current occupational status: employed Cognitive needs: No Hearing needs: No Vision needs: No Physical Exam ED Vital Signs: Vital Signs - 24 hr 04/17/25 19:05 04/17/25 20:00 04/17/25 20:24 Temperature 97.6 F 97.8 F Pulse Rate 75 76 84 Respiratory Rate 20 22 H 18 Blood Pressure 119/80 124/65 Pulse Oximetry 96 95 Oxygen Delivery Method Room Air Room Air 04/17/25 20:30 04/17/25 22:00 04/17/25 23:50 Temperature 98.1 F Pulse Rate 86 78 81 Respiratory Rate 18 16 20 Blood Pressure 114/61 109/69 Pulse Oximetry 92 93 Oxygen Delivery Method Room Air Room Air BMI result Body Mass Index 26.2 Appearance: Alert.?Oriented to person, place and time. No acute distress.?Normal affect. Eyes: Pupils equal, round and reactive to light.? ENT: Pharynx normal.?? Neck: Normal inspection.? Neck supple.?? CVS: Heart sounds normal. Normal heart rate and rhythm.? Pulses normal.?? Respiratory: No respiratory distress.? Lung sounds with inspiratory and expiratory wheezing bilaterally? Abdomen: Soft with epigastric tenderness upon palpation. Normoactive bowel sounds. No CVA tenderness.?? Skin: Skin warm and dry.? Normal skin color.?? Extremities: No lower extremity edema.? Neuro: Moves all extremities spontaneously. Sensation intact bilaterally. Ambulates with normal steady gait. Course Course Course Narrative: This is an RME: Additional HPI, ROS, PE not included below will be deferred to primary provider. RME assessment and note performed by: Tonia Bustamante PA-C 39 yo M here due to wheezing and SOB. Has not been using inhaler or DUONEB at home. CXR taken yesterday and WNL. Reports associated abdominal pain without vomiting. PE: TTP periumbilical region. Lungs with inspiratory and expiratory wheeze throughout Plan: Labs, viral serology Reevaluation(s) Reevaluation #1: Sounds are clear to the apices bilaterally after receiving updraft. Abdominal pain has resolved. He is tolerating oral intake. At this time stable for discharge home, treatment for asthma exacerbation, reviewed instructions regarding gastritis outpatient follow-up with Gastroenterology. All questions answered. Stable for discharge Medications Administered Discontinued Medications Generic Name Dose Route Start Last Admin Trade Name Claire PRN Reason Stop Dose Admin Al Hydroxide/Mg Hydroxide 30 ml 04/17/25 20:49 04/17/25 21:01 Magnesium Hydrox/Alum Hydrox 30 Ml Oral.Susp PO 04/17/25 20:50 30 ml ONCE ONE Administration Albuterol/Ipratropium 3 ml 04/17/25 20:18 04/17/25 20:24 Albuterol/Iprat 2.5/0.5mg 3 Ml Ampul.Neb INHALE 04/17/25 20:19 3 ml ONCE ONE Administration Albuterol Sulfate 2.5 mg/ 0 mg 04/17/25 20:26 04/17/25 20:29 Albuterol/Ipratropium 3 ml INHALE 04/17/25 20:27 1 dose ONCE ONE Administration Famotidine 20 mg 04/17/25 20:49 04/17/25 21:01 Famotidine 20 Mg Tablet PO 04/17/25 20:50 20 mg ONCE ONE Administration Lidocaine HCl 15 ml 04/17/25 20:49 04/17/25 21:01 Lidocaine Hcl Viscous 2 % 15 Ml Solution MUCOUS MEM 04/17/25 20:50 15 ml ONCE ONE Administration Medical Decision Making Medical Decision Making [facility] Narrative: Patient is a 39-year-old male past medical history of asthma, depression, anxiety, substance use disorder, hypertension, migraine, family history of colon cancer presents emergency department today with primary concern of cough and shortness of breath over the past few days. He additionally reports having epigastric pain which is chronic as per HPI, with evaluated by Gastroenterology yesterday, prescriptions were sent for omeprazole and p.r.n. famotidine. On examination he does have mild epigastric tenderness otherwise no lower abdominal pain or tenderness, Minor sign, no left upper quadrant tenderness or pain. He is tolerating oral intake. Will trial GI cocktail suspect this is pain secondary to gastritis, lower suspicion your CBD stone history of cholecystectomy, lower suspicion for pancreatitis as he has no risk factors, unlikely PUD given no hematemesis. Does have a history of asthma, has been experiencing nonproductive cough and shortness of breath over the past few days, maybe exacerbation from the recent extreme temperatures. LS CTA. No associated chest pain. Lower suspicion for ACS. Will obtain CXR viral serologies and serum labs. He does have inspiratory and expiratory wheezing he will receive a breathing treatment as well as a dose of steroids. Differential Diagnosis Differential Diagnoses: The differential diagnosis associated with the presentation includes (See narrative above) Admission/Observation Consideration of admission/observation: Escalation of care including admission/observation considered Lab Data MDM Lab Attestation statement: I reviewed the patient's lab results. CBC is without leukocytosis, has a normocytic anemia that does not meet transfusion criteria, no thrombocytopenia. No electrolyte derangement. No ANNEL. LFTs and lipase are unremarkable. Viral serologies are negative. 04/17/25 19:21 04/17/25 19:21 Labs: Lab Results 04/17/25 Range/Units 19:21 WBC 5.2 (4.8-10.8) X10*3/uL RBC 4.37 L (4.60-5.80) X10*6/uL Hgb 13.4 L (14.0-18.0) g/dl Hct 39.8 L (42.0-52.0) % MCV 91.1 (80.0-98.0) fL MCH 30.7 (27.0-33.0) pg MCHC 33.7 (31.0-36.0) g/dl RDW 14.0 (11.0-16.0) % Plt Count 239 (160-400) X10*3/uL MPV 9.1 L (9.4-12.4) fL Immature Gran % (Auto) 0.2 (0.0-0.4) % Neut % (Auto) 49.4 (45-73) % Lymph % (Auto) 35.8 (20-40) % [place] % (Auto) 9.0 (2-11) % Eos % (Auto) 4.8 H (0-4) % Baso % (Auto) 0.8 (0-2) % Lymph # (Auto) 1.9 (1.2-4.9) X10*3/uL [place] # (Auto) 0.5 (0.1-1.2) X10*3/uL Eos # (Auto) 0.3 (0.0-0.4) X10*3/uL Baso # (Auto) 0.0 (0.0-0.2) X10*3/uL Abs Immat Gran (auto) 0.01 (0.00-0.03) X10*3/uL Absolute Neuts (auto) 2.6 (2.0-8.3) x10*3/uL Absolute Nucleated RBC 0.000 (0.0-0.012) X10*3/uL Nucleated RBC % (auto) 0.0 (0.0-0.2) /100WBC Sodium 140 (135-145) mmol/L Potassium 4.1 (3.3-5.1) mmol/L Chloride 107 (96-108) mmol/L Carbon Dioxide 26 (22-29) mmol/L Anion Gap 11 L (12-20) BUN 14 (9-16) mg/dL Creatinine 0.83 (0.5-1.4) mg/dL Estim Creat Clear Calc 128.5 Estimated GFR > 60 Random Glucose 97 (60-115) mg/dL Calcium 8.7 (8.4-10.2) mg/dL Magnesium 2.0 (1.6-2.6) mg/dL Total Bilirubin 0.2 (0.0-1.0) mg/dL AST 16 (5-37) U/L ALT 9 (0-40) U/L Alkaline Phosphatase 76 (39-117) U/L Total Protein 7.5 (6.5-8.0) g/dL Albumin 4.1 (3.5-5.0) g/dL Lipase 8 (8-78) U/L Influenza Type A (PCR) NEGATIVE (Negative) Influenza Type B (PCR) NEGATIVE (Negative) RSV RNA Qual (PCR) NEGATIVE (Negative) SARS-CoV-2 RNA (RT-PCR) NEGATIVE (Negative) Independent Interpretation I performed an independent interpretation of an: Plain X-Ray (No consolidation or infiltrate, no pleural effusions.) Radiology Impression Discussion of test interpretation with radiology: I have reviewed the radiologist's reading. Radiologist Impression: 2 view chest x-ray Comparison: CR/SR - XR CHEST 2V - 04/16/25 11:24 EDT Findings: The lungs are clear. Normal size heart. No acute fracture. IMPRESSION: 1. No acute findings. Chronic Conditions Patient?s care impacted by: Other (See narrative above) Discharge Plan Discharge Clinical Impression: Asthma exacerbation Qualifiers: Asthma severity: mild Asthma persistence: intermittent Qualified Code(s): J 45.21 - Mild intermittent asthma with (acute) exacerbation Gastritis Qualifiers: Gastritis type: unspecified gastritis Chronicity: acute Gastritis bleeding: w ithout bleeding Qualified Code(s): K29.00 - Acute gastritis without bleeding Patient Disposition: Home, Self-Care Instructions: Asthma (ED), Gastritis (ED) Additional Instructions: You are being treated for an asthma exacerbation, use albuterol inhaler as needed for shortness of breath, prescription for prednisone has been sent to the pharmacy. This medication may cause stomach upset, be certain that you are taking it with food to prevent such. Return to emergency department any new or worsening symptoms or concerns. Additionally it is very important that you take the medication as prescribed from the GI doctor yesterday omeprazole daily and famotidine as needed for symptoms. Follow-up with gastroenterology accordingly Prescriptions: New prednisone 20 mg tablet 20 mg PO DAILY Qty: 5 0RF albuterol sulfate [Ventolin HFA] 90 mcg/actuation HFA aerosol inhaler 2 puff inhalation Q4-6H PRN (Reason: shortness of breath or wheezing) Qty: 6.7 0RF No Action acetaminophen [Tylenol Extra Strength] 500 mg tablet 500 mg PO Q6H PRN (Reason: pain) Qty: 30 0RF sertraline 25 mg tablet 25 mg PO DAILY Sublocade 300 mg/1.5 mL solution, extended rel syringe subcut famotidine 20 mg tablet 20 mg PO DAILY PRN (Reason: GERD) Qty: 90 1RF Rx Instructions: Take one tablet daily as needed for acid reflux omeprazole 20 mg capsule,delayed release(DR/EC) 20 mg PO DAILY Qty: 90 1RF bisacodyl 5 mg tablet,delayed release (DR/EC) 5 mg PO ONCE 1 Days Qty: 4 0RF Rx Instructions: Take four tablets once for 1 day per colonoscopy instructions polyethylene glycol 3350 [Miralax] 17 gram/dose powder 17 g PO DAILY 30 Days Qty: 510 2RF Rx Instructions: Take 17G (one cap full) daily with 8oz of water polyethylene glycol 3350 [Miralax] 17 gram/dose powder 238 g PO ONCE Qty: 238 0RF Rx Instructions: per colonoscopy prep instructions valacyclovir [Valtrex] 1 gram tablet 1,000 mg PO DAILY 5 Days Qty: 5 8RF albuterol sulfate [Ventolin HFA] 90 mcg/actuation HFA aerosol inhaler 2 puff inhalation Q4-6H PRN (Reason: sob) Qty: 8.5 1RF quetiapine [Seroquel] 50 mg tablet 50 mg PO BEDTIME Qty: 90 1RF sumatriptan succinate [Imitrex] 25 mg tablet See Rx Instructions PO .COMPLEX Qty: 60 0RF Rx Instructions: take 1 tab at onset of headache; if no relief may repeat 1 tab after at least 2 hrs; max = 4 tabs/24 hr PO lisinopril 10 mg tablet 10 mg PO DAILY Qty: 90 1RF Referrals: Physician,Unknown J [Primary Care Provider, Medical] Print Language: Luxembourgish
[2025-04-17 19:26] LABS: MANUAL DIFF FLAG NO
[2025-04-17 19:32] LABS: Basophils Percent Auto 0.8 % (0-2); Eosinophils Absolute Auto 0.3 X10*3/uL (0.0-0.4); Eosinophils Percent Auto 4.8 % (0-4); Hematocrit 39.8 % (42.0-52.0); Hemoglobin 13.4 g/dl (14.0-18.0); Imm Gran Abs Auto 0.01 X10*3/uL (0.00-0.03); Imm Gran Pct Auto 0.2 % (0.0-0.4); Lymphocytes Absolute Auto 1.9 X10*3/uL (1.2-4.9); Lymphocytes Percent Auto 35.8 % (20-40); Mean Corpuscular HGB Conc 33.7 g/dl (31.0-36.0); Mean Corpuscular Hemoglobin 30.7 pg (27.0-33.0); Mean Corpuscular Volume 91.1 fL (80.0-98.0); Mean Platelet Volume 9.1 fL (9.4-12.4); Monocytes Absolute Auto 0.5 X10*3/uL (0.1-1.2); Neutrophils Absolute Auto 2.6 x10*3/uL (2.0-8.3); Neutrophils Percent Auto 49.4 % (45-73); Platelet Count 239 X10*3/uL (160-400); Red Blood Count 4.37 X10*6/uL (4.60-5.80); White Blood Count 5.2 X10*3/uL (4.8-10.8)
[2025-04-17 19:42] LABS: Alanine Aminotransferase 9 U/L (0-40); Albumin Level 4.1 g/dL (3.5-5.0); Alkaline Phosphatase 76 U/L (39-117); Anion Gap 11 (12-20); Aspartate Amino Transferase 16 U/L (5-37); Bilirubin Total 0.2 mg/dL (0.0-1.0); Blood Urea Nitrogen 14 mg/dL (9-16); Calcium 8.7 mg/dL (8.4-10.2); Carbon Dioxide 26 mmol/L (22-29); Chloride 107 mmol/L (96-108); Creatinine Clr Calc Pharmacy 128.5; Estimated Glomerular Filt Rate > 60; Glucose Random 97 mg/dL (60-115); Lipase 8 U/L (8-78); Potassium 4.1 mmol/L (3.3-5.1); Sodium 140 mmol/L (135-145); Total Protein 7.5 g/dL (6.5-8.0)
--- NOTE | 2025-04-17 19:53 | PC.NURSE ---
Pt sitting comfortably on stretcher. Call french in reach and patient educated on use.
[2025-04-17 20:00] VITALS: BP 124/65; PULSE 76; RESP 22; TEMP 36.6; O2SAT 95
[2025-04-17 20:03] LABS: Influenza A PCR NEGATIVE (Negative); Influenza B PCR NEGATIVE (Negative); Resp Syncy Virus RNA Qual PCR NEGATIVE (Negative); SARS COV2 PCR INHOUSE NEGATIVE (Negative)
[2025-04-17 20:24] VITALS: PULSE 84; RESP 18; O2SAT 96
[2025-04-17] MEDS: Albuterol/Iprat 2.5/0.5MG 3 ML AMPUL.NEB INHALE (20:24)
[2025-04-17] MEDS: Albuterol Sulfate 2.5 MG, Albuterol/Iprat 2.5/0.5MG 3 ML 3 ML INHALE (20:29)
[2025-04-17 20:30] VITALS: PULSE 86; RESP 18; O2SAT 96
[2025-04-17] MEDS: Magnesium Hydrox/Alum Hydrox 30 ML ORAL.SUSP PO (21:01)
[2025-04-17] MEDS: Famotidine 20 MG TABLET PO (21:01)
[2025-04-17] MEDS: Lidocaine HCl Viscous 2 % 15 ML SOLUTION MUCOUS MEM (21:01)
[2025-04-17 22:00] VITALS: BP 114/61; PULSE 78; RESP 16; TEMP 36.7; O2SAT 92
[2025-04-17 23:50] VITALS: BP 109/69; PULSE 81; RESP 20; O2SAT 93
[2025-04-18 00:03] VITALS: BP 109/69; PULSE 81; RESP 20; TEMP 36.7; O2SAT 93
== END 2025-04-18 00:06 | disposition home or self-care (01) ==
PROVIDERS: Emergency Provider Internal Medicine
DX: J45.21 Mild intermittent asthma with (acute) exacerbation (principal); K29.00 Acute gastritis without bleeding; R06.02 Shortness of breath; R05.9 Cough, unspecified; Z80.0 Family history of malignant neoplasm of digestive organs; Z03.818 Encounter for observation for suspected exposure to other biological agents ruled out; Z79.899 Other long term (current) drug therapy
CPT/HCPCS: 0241U; 71046; 80053; 83690; 83735; 85025; 94640; 99284

== ENCOUNTER → 2025-04-17 19:50 | Outpatient (BNV) | payer OTHER, SELFPAY | PROVIDERS: Visit Provider Radiology Diagnostic Radiology | DX: R06.02 Shortness of breath (principal) | CPT/HCPCS: 71046 ==

== ENCOUNTER 2025-06-20 09:06 | Outpatient (AMB) | payer OTHER, SELFPAY ==
--- NOTE | 2025-06-20 09:04 | A.OFFPC_ITS ---
Vital Signs 06/20/25 09:13 Height 6 ft 0.76 in Weight 194 lb BMI 25.8 BP 101/58 L Blood Pressure Location Rt femoral Position Sitting Respiration 20 Pulse 69 Pulse Source Pulse Oximeter Temp 97.9 F Temp Source Temporal Artery Scan Pulse Oximetry (%) 98 Oxygen Delivery Method Room Air Intake Visit Reasons: 3 month follow up Development Coordinator Required: No Accompanied by: Self / Same As Patient Allergies No Known Allergies Allergy (Verified 06/20/25 11:17) Medication List - Last Reconciled 06/20/25 by Marlee Duarte PA-C acetaminophen (Tylenol Extra Strength) 500 mg PO Q6H PRN albuterol sulfate 90 mcg/actuation (Ventolin HFA) 2 puffs inhalation Q4-6H PRN albuterol sulfate 90 mcg/actuation (Ventolin HFA) 2 puffs PO Q4-6H PRN bisacodyl 5 mg PO ONCE 1 day buprenorphine ER (Sublocade) mg subcut famotidine 20 mg PO DAILY PRN omeprazole 20 mg PO DAILY polyethylene glycol 3350 (Miralax) 17 grams PO DAILY 30 days polyethylene glycol 3350 (Miralax) 238 grams PO ONCE quetiapine (Seroquel) 50 mg PO BEDTIME sertraline 25 mg PO DAILY sumatriptan succinate (Imitrex) take 1 tab at onset of headache; if no relief may repeat 1 tab after at least 2 hrs; max = 4 tabs/24 hr PO valacyclovir (Valtrex) 1,000 mg PO DAILY 5 days Tobacco use date assessed: 03/22/25 Dental Screening Dental Screen Date: 02/11/25 Did you have a dental visit in the last 12 months?: Yes Did you have a dental problem in the last 6 months where you did not have access to dental care?: No Was dental information given to patient?: Patient has dentist HPI 3 month follow up HPI Details The patient is a 39-year-old male presenting for a three-month follow- up visit. The patient has a history of substance use disorder and is currently receiving a monthly injection of Sublocade to aid in abstinence from drug use. He reports that the treatment is effective and has helped him maintain sobriety. The patient has experienced episodes of low blood pressure, with a current reading of 101/58 mmHg, and reports occasional dizziness and lightheadedness. He was previously on antihypertensive medication, which has been discontinued due to low blood pressure readings. The patient has a history of anemia, which appears to be chronic. He denies any symptoms such as black stools. A colonoscopy is scheduled already. The patient is being treated for gastroesophageal reflux disease with famotidine and omeprazole. He reports adherence to the medication regimen. The patient has a history of asthma, which was previously managed with prednisone during an allergic reaction. He currently does not require daily asthma medication. The patient experiences cold sores and is prescribed Valtrex for management. The patient reports experiencing headaches and is prescribed sumatriptan for relief. 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 - Residence: Lives in [place]. [facility] Medical History (Updated 06/20/25 @ 13:18 by Marlee Duarte PA-C) Chronic headaches Chronic anemia Opioid use disorder, mild, in early remission Constipation Acid reflux Anemia Cough Depression Anxiety History of heroin use Establishing care with new doctor, encounter for Colon cancer screening Overweight (BMI 25.0-29.9) Cold sore Hypertension Migraine headache Asthma Surgical History Hx of colonoscopy History of esophagogastroduodenoscopy (EGD) Hx of cholecystectomy Family History Father Heart problem Colon cancer Diabetes Mother Stroke Dementia Bone cancer Paternal Grandfather Colon cancer Family/Other Colon cancer Social History Household Members: Family Housing: House Do you presently have visiting nurse or other home services: No Alcohol intake: current Alcohol intake frequency: does not drink Patient Tobacco Use Status: Never used Tobacco Substance Use Type: Marijuana Advance Directives Date on File: 08/20/24 service: No Current occupational status: employed Cognitive needs: No Hearing needs: No Vision needs: No Questionnaire PHQ-9 Over the last 2 weeks, how often have you been bothered by any of the following problems? 1. Little interest or pleasure in doing things: not at all 2. Feeling down, depressed, or hopeless: not at all 3. Trouble falling or staying asleep, or sleeping too much: not at all 4. Feeling tired or having little energy: not at all 5. Poor appetite or overeating: not at all 6. Feeling bad about yourself - or that you are a failure or have let yourself or your family down: not at all 7. Trouble concentrating on things, such as reading the newspaper or watching television: not at all 8. Moving or speaking so slowly that other people could have noticed. Or the opposite - being so fidgety or restless that you have been moving around a lot more than usual: not at all 9. Thoughts that you would be better off or of hurting yourself in some way: not at all Total score: 0 Depression Screening Interpretation: Negative Depression Screening Done: Yes 69135 - PHQ-9 Billing: Yes Source: Developed by Drs. Harley Moncada, Kaycee Gomez, Franko Chang and colleagues, with an educational erum from [employer]. Thrive Questionnaire Date Thrive assessed: 02/11/25 I am a: Patient What is your living situation today?: I have a steady place to live Within the past 12 months, did the food you bought not last and you didn't have the money to get more?: Never true Within the past 12 months, did you worry whether your food would run out before you got money to buy more?: Never true Do you have trouble paying for medicines?: No Do you have trouble getting transportation to medical appointments?: No Do you have trouble paying your heating and electricity bill?: No Do you have trouble taking care of your child, family member or friend?: No Do you have trouble with day-to-day activities such as bathing, preparing meals, shopping, managing finances, etc.?: No Are you currently unemployed and looking for a job?: No Are you interested in more education?: No Please select the resources that you would like help with: None THRIVE Score: 0 AUDIT C Alcohol Use Questionnaire (AUDIT-C) 1. How often do you have a drink containing alcohol?: Never 3. How often do you have six or more drinks on one occasion?: Never Total Score: 0 Score Reviewed/Action Taken: No HUBERT-7 AMB Questionnaire HUBERT-7 Date HUBERT - 7 assessed: 02/11/25 Feeling nervous, anxious, or on edge: 1 = Several days Not being able to stop or control worryin = Several days Worrying too much about different things: 1 = Several days Trouble relaxin = Nearly every day Being so restless that it is hard to sit still: 1 = Several days Becoming easily annoyed or irritable: 0 = Not at all Feeling afraid as if something awful might happen: 3 = Nearly every day Total HUBERT-7 score (0-4 normal; 5-9 mild; 10-14 moderate; 15-21 severe): 10 Source: Developed by Drs. Harley Moncada, Kaycee Gomez, Franko Chang and colleagues, with an educational erum from [employer]. HUBERT-7 Assessment Billing HUBERT-7 Assessment Tool: HUBERT-7 Assessment 45470 Review of Systems Const Details: - Cardiovascular: Reports occasional dizziness and lightheadedness. Denies chest pain or palpitations. - Gastrointestinal: Reports adherence to medication for gastroesophageal reflux disease. Denies black stools. - Neurological: Reports headaches. Denies seizures or syncope. - Respiratory: Denies current asthma symptoms. All systems reviewed & are unremarkable except as noted in HPI and below Physical exam (Primary Care) Vital Signs: Last Vital Signs Temp 97.9 F 06/20/25 09:13 Pulse 69 06/20/25 09:13 Resp 20 06/20/25 09:13 BP 101/58 L 06/20/25 09:13 Pulse Ox 98 06/20/25 09:13 Oxygen Delivery Method Room Air 06/20/25 09:13 Care Plan Goal for BP management: <140/90 at Goal BMI result Body Mass Index 25.8 BMI Assessment/Plan discussion: High BMI High, discussed plan: lifestyle, weight reduction, dietary, physical activity, alcohol moderation and other Tobacco/Smoking Status: Tobacco use Status Tobacco use date assessed 03/22/25 06/20/25 09:05 Patient Tobacco Use Status Never used Tobacco 06/20/25 09:05 PHQ-9: PHQ-9 Score PHQ-9: Total score 0 06/20/25 09:37 Depression Screening Interpretation: Negative Thrive Assessment: Date of Thrive Assessment Date Thrive assessed 02/11/25 06/20/25 09:05 Const Other: Appearance: Alert. Oriented X3. No acute distress. Head: Normal external exam. Normocephalic. Atraumatic. Eyes: Pupils are equal, round, and reactive to light. Extraocular movements intact. Conjunctiva and sclera normal. Eyelids normal. Throat: Pharynx normal. Uvula midline. Moist mucous membranes. Neck: Normal inspection. Neck supple. Full range of motion. Cardiovascular: Normal heart rate and rhythm. Back: Full range of motion noted. Skin: Skin warm and dry. Normal skin color. Extremities: No lower extremity edema. Extremities exhibit normal range of motion. Neuro: Oriented X 3. No motor deficit. No sensory deficit. Reflexes normal. Results Reviewed Results Reviewed: - Labs: Recent blood work indicates chronic anemia. - Tests: Colonoscopy planned to investigate anemia. Coding Level of Care Code Est Pt Level 4 (13545) Complex EM visit Add On G2211 Diagnoses Opioid use disorder, mild, in early remission F11.11 Hypertension I10 Chronic anemia D64.9 Gastroesophageal reflux disease, unspecified whether esophagitis present K21.9 Esophagitis presence: esophagitis presence not specified Asthma J45.909 Cold sore B00.1 Chronic headaches R51.9; G89.29 Additional Codes HUBERT-7 Assessment Billing - HUBERT-7 Assessment Tool: HUBERT-7 Assessment 00344 ([id number]) PHQ-9 - 01343 - PHQ-9 Billing: Yes ([id number]) Assessment & Plan Assessment & Plan (1) Opioid use disorder, mild, in early remission: Code(s): F11.11 - Opioid abuse, in remission Category: Medical Plan: The patient is receiving a monthly injection of Sublocade to maintain abstinence from drug use, which has been effective in supporting sobriety. Condition is chronic and stable continue to monitor (2) Hypertension: Code(s): I10 - Essential (primary) hypertension Category: Medical Plan: The patient's antihypertensive medication has been discontinued due to low blood pressure readings, and he is advised to monitor his blood pressure regularly. (3) Chronic anemia: Code(s): D64.9 - Anemia, unspecified Category: Medical Plan: The patient is scheduled for a colonoscopy to investigate the cause of chronic anemia, and dietary intake will be assessed to ensure adequate iron consumption. Condition is chronic and stable will continue to monitor. (4) Acid reflux: Code(s): K21.9 - Gastro-esophageal reflux disease without esophagitis Category: Medical Qualifiers: Esophagitis presence: esophagitis presence not specified Qualified Code(s): K21.9 - Gastro-esophageal reflux disease without esophagitis Plan: The patient continues treatment with famotidine and omeprazole for gastroesophageal reflux disease, with good adherence reported. Condition is chronic and stable continue to monitor (5) Asthma: Code(s): J45.909 - Unspecified asthma, uncomplicated Category: Medical Plan: The patient does not require daily asthma medication at this time, as symptoms are not currently present. 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 Condition is chronic and stable will continue to monitor (7) Chronic headaches: Code(s): R51.9 - Headache, unspecified; G89.29 - Other chronic pain Category: Medical Plan: The patient is prescribed sumatriptan for headache relief. Condition is chronic and stable will continue to monitor Plan Plan Patient was informed and verbally consented to the use of an ambient scribe for clinic note documentation during this visit. 1. Substance Use Disorder The patient is receiving a monthly injection of Sublocade to maintain abstinence from drug use, which has been effective in supporting sobriety. Condition is chronic and stable continue to monitor 2. Low Blood Pressure The patient's antihypertensive medication has been discontinued due to low blood pressure readings, and he is advised to monitor his blood pressure regularly. 3. Anemia The patient is scheduled for a colonoscopy to investigate the cause of chronic anemia, and dietary intake will be assessed to ensure adequate iron consumption. 4. Gastroesophageal Reflux Disease The patient continues treatment with famotidine and omeprazole for gastroesophageal reflux disease, with good adherence reported. 5. Asthma The patient does not require daily asthma medication at this time, as symptoms are not currently present. 6. Cold Sores The patient is prescribed Valtrex for the management of cold sores. 7. Headaches The patient is prescribed sumatriptan for headache relief. During the visit, we discussed the patient's current treatment regimen, including the effectiveness of Subaclip for substance use disorder and the discontinuation of antihypertensive medication due to low blood pressure. We also reviewed the patient's anemia and the plan for a colonoscopy to investigate further. The patient was advised to continue current medications for gastroesophageal reflux disease and cold sores, and to monitor blood pressure regularly. Medications: Refilled quetiapine (Seroquel) 50 mg PO BEDTIME 90 tabs 3RF acetaminophen (Tylenol Extra Strength) 500 mg PO Q6H PRN 30 tabs 3RF pain valacyclovir (Valtrex) 1,000 mg PO DAILY 5 tabs 8RF 5 days B00.1 - Herpesviral vesicular dermatitis bisacodyl Take four tablets once for 1 day per colonoscopy instructions 5 mg PO ONCE 4 tabs 0RF 1 day Discontinued prednisone Discontinued Reason: Doctor's Order 20 mg PO DAILY 5 tabs 0RF lisinopril Discontinued Reason: Doctor's Order 10 mg PO DAILY 90 tabs 1RF G43.909 - Migraine, unspecified, not intractable, without status migrainosus, I10 - Essential (primary) hypertension Patient Instructions: - Continue monthly Subaclip injections for substance use disorder. - Monitor blood pressure regularly and report any significant changes. - Adhere to prescribed medications for gastroesophageal reflux disease and cold sores. - Schedule and complete the colonoscopy as planned. - Follow up in six months or sooner if symptoms worsen.
[2025-06-20 09:13] VITALS: BP 101/58; PULSE 69; RESP 20; TEMP 36.6; O2SAT 98; BMI 25.8
== END 2025-06-20 09:36 | disposition home or self-care (01) ==
LOC: HO.HMCSH 09:06
PROVIDERS: Visit Provider Physician Assistant Medical
DX: F11.11 Opioid abuse, in remission (principal); I10 Essential (primary) hypertension; D64.9 Anemia, unspecified; K21.9 Gastro-esophageal reflux disease without esophagitis; J45.909 Unspecified asthma, uncomplicated; B00.1 Herpesviral vesicular dermatitis; R51.9 Headache, unspecified; G89.29 Other chronic pain

== ENCOUNTER → 2025-06-20 09:06 | Outpatient (BNVA) | payer OTHER, SELFPAY | PROVIDERS: Visit Provider Physician Assistant Medical | DX: F11.11 Opioid abuse, in remission (principal); K21.9 Gastro-esophageal reflux disease without esophagitis; J45.909 Unspecified asthma, uncomplicated; I10 Essential (primary) hypertension; D64.9 Anemia, unspecified; B00.1 Herpesviral vesicular dermatitis; R51.9 Headache, unspecified; G89.29 Other chronic pain; Z79.899 Other long term (current) drug therapy | CPT/HCPCS: 96127; 99212 ==

== ENCOUNTER 2025-07-30 13:18 | Outpatient (AMB) | payer OTHER, SELFPAY ==
[2025-07-30 13:35] VITALS: BP 120/60; PULSE 101; O2SAT 97; BMI 23.3
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
--- OUTSIDE RECORDS SUMMARY | 2025-07-30 16:17 | XMS_ITS | Clinical Summary ---
Author Organization [employer] Address [address] [place] [address] Care Team Providers Care Frame Operator Name Role Phone Unavailable Primary Care Provider Unavailabl e Encounters Date Type Department Care Team Description 07/02/2025 Patient Outreach [facility] [address] [place] [address] George Connors Recovery Supports from Last 3 Months Social History Tobacco Use Types Packs/Day Years Used Date Smoking Tobacco: Never Assessed Sex and Gender Information Value Date Recorded Sex Assigned at Male 07/02/2025 2:06 PM EDT Legal Sex Male 2:04 PM EDT Gender Identity Male 07/02/2025 2:06 PM EDT Sexual Orientation Straight 07/02/2025 2: 06 PM EDT Plan of Treatment Health Maintenance Due Date Last Done Comments Depression Screening 1983 HIV Screening 1983 Lipid Panel 1983 SDOH Screening 1983 Disability Screening 1983 Alcohol/Substance Use Screening 1995 Tobacco Screening 1995 Family Planning (PISQ) 1998 HPV Vaccines (1 - Male 3-dos e series) 1998 Hepatitis C Screening 2001 DTaP/Tdap/Td Vaccines (1 - Tdap) 2002 Hepatitis B Vaccines (1 of 3 - 19+ 3-dose series) 2002 COVID-19 Vaccine (1 - 2023-2 5 season) 2025 Influenza Vaccine (#1) 2025 Zoster Vaccines (1 of 2) 2033 RSV Patients and Pa tients Aged 60 years or older (1 - 1-dose 75+ series) 2058 HIB Vaccines Aged Out No longer eligi ble based on patient's age to complete this topic Hepatitis A Vaccines Aged Out No long er eligible based on patient's age to complete this topic IPV Vaccines Aged Out No longer eligi ble based on patient's age to complete this topic Meningococcal B Vaccine Aged Out No l onger eligible based on patient's age to complete this topic Meningococcal Vaccine Aged Out No abbe eladio eligible based on patient's age to complete this topic Pneumococcal Vaccine: Pediat rics (0 to 5 Years) and At-Risk Patients (6 to 49) Years Aged Out No longer eligible b ased on patient's age to complete this topic RSV under 20 months Aged Out No longe r eligible based on patient's age to complete this topic Rotavirus Vaccines Aged Out No longer eligible based on patient's age to complete this topic
== END 2025-07-30 14:59 | disposition home or self-care (01) ==
LOC: HO.HSMS 13:19
PROVIDERS: PCP Physician Assistant Medical; Visit Provider Nurse Practitioner Family
DX: D64.9 Anemia, unspecified (principal); R25.9 Unspecified abnormal involuntary movements; R51.9 Headache, unspecified; H53.149 Visual discomfort, unspecified; G47.19 Other hypersomnia; G47.9 Sleep disorder, unspecified; R06.83 Snoring; H53.2 Diplopia
CPT/HCPCS: 99204

== ENCOUNTER → 2025-07-30 13:18 | Outpatient (BNVA) | payer OTHER, SELFPAY | PROVIDERS: PCP Physician Assistant Medical; Visit Provider Nurse Practitioner Family | DX: H53.2 Diplopia (principal); D64.9 Anemia, unspecified; R25.9 Unspecified abnormal involuntary movements; H53.149 Visual discomfort, unspecified; G47.19 Other hypersomnia; R06.83 Snoring | CPT/HCPCS: 99202 ==

== ENCOUNTER 2025-10-20 12:46 | Outpatient (REF) | payer OTHER, SELFPAY ==
--- NOTE | ~2025-10-20 | MR_ITS ---
EXAMINATION: MR BRAIN WITHOUT THEN WITH IV CONTRAST HISTORY: R51.9 - Headache, unspecified TECHNIQUE: Sagittal T1, and axial T1, FLAIR, T2, gradient echo, and diffusion weighted MR images of the brain were obtained. Subsequently, axial, and coronal T1-weighted images were obtained after the administration of intravenous gadolinium. 9 mL Gadavist was administered. COMPARISON: There are no prior studies available for comparison. FINDINGS: The pituitary is normal in size. The cerebellar tonsils are normally located. The brain parenchyma is unremarkable, demonstrating normal waterman/white differentiation. No foci of abnormal signal intensity are identified. The ventricular system is normal in size and configuration. There is no mass effect or midline shift. No intra or extra-axial fluid collections are identified. There are no foci of restricted diffusion. There is no abnormal contrast enhancement. Normal vascular flow voids are noted in the basilar and carotid arteries. The visualized paranasal sinuses are clear. MR/MR head/brain wo/w con IMPRESSION: Unremarkable MRI of the brain without and with contrast. Electronically signed by: Harley Paul MD 10/21/2025 09:02 AM [facility]
--- OUTSIDE RECORDS SUMMARY | 2025-10-20 12:57 | XMS_ITS | Clinical Summary ---
Author Organization Kamla Cordon [facility] Address [address] [place] [id number] Care Team Providers Care Mapping Technician Name Role Phone Maikel Glover Primary Care Provider [phone] Allergies No known active allergies Social History Tobacco Use Types Packs/Day Years Used Date Smoking Tobacco: Never Assessed [facility] Utilities Answer Date Recorded In the past 12 months has th e electric, gas, oil, or water company threatened to shut off services in your home? No 02/19/2025 Humiliation, Afraid, Rape, and Kick questionnair e Answer Date Recorded Within the last year, have y ou been afraid of your partner or ex-partner? No 02/19/2025 Emotionally Abused Not on file 02/19/2025 Physically Abused Not on file 02/19/2025 Sexually Abused Not on file 02/19/2025 Overall Financial Resource Strain (CARDIA) Answe r Date Recorded How hard is it for you to pa y for the very basics like food, housing, medical care, and heating? Not very hard 02/19/2025 Hunger Vital Sign Answer Date Recorded Within the past 12 months, y ou worried that your food would run out before you got the money to buy more. Never true 02/20/20 25 Ran Out of Food in the Last Year Not on file 02/19/2025 PRAPARE - Transportation Answer Date Re corded In the past 12 months, has l ack of transportation kept you from medical appointments or from getting medications? No 01/23 In the past 12 months, has l ack of transportation kept you from meetings, work, or from getting things needed for daily living? No 02/19/2025 Housing Stability Vital Sign Answer Landon e Recorded In the last 12 months, was t here a time when you were not able to pay the mortgage or rent on time? No 02/19/2025 Number of Times Moved in the Last Year Not on fi le 02/19/2025 At any time in the past 12 m [facility], were you homeless or living in a snf (including now)? No 02/19/2025 Food Insecurity Answer Date Recorded Within the past 12 months, y ou worried that your food would run out before you got the money to buy more. Never true 02/20/20 25 Ran Out of Food in the Last Year Not on file 02/19/2025 Intimate Partner Violence Answer Date R ecorded Emotionally Abused Not on file 02/19/2025 Within the last year, have y ou been afraid of your partner or ex-partner? No 02/19/2025 Physically Abused Not on file 02/19/2025 Sexually Abused Not on file 02/19/2025 Housing Stability Answer Date Recorded Unstable Housing in the Last Year Not on file 02/19/2025 In the last 12 months, was t here a time when you were not able to pay the mortgage or rent on time? No 02/19/2025 Number of Places Lived in the Last Year Not on f ile 02/19/2025 Sex and Gender Information Value Date Recorded Sex Assigned at Male 02/19/2025 10:01 AM EDT Legal Sex Male 9:09 AM EDT Gender Identity Male 02/19/2025 10:01 AM EDT Sexual Orientation Not on file Last Filed Vital Signs Vital Sign Reading Time Taken Comments Blood Pressure 138/88 02/19/2025 1:37 PM EDT Pulse 76 02/19/2025 1:37 PM EDT Temperature 36.7 C (98 F) 02/19/2025 1:37 PM EDT Respiratory Rate 16 02/19/2025 1:37 PM EDT Oxygen Saturation 96% 02/19/2025 1:37 PM EDT Inhaled Oxygen Concentration - - Weight 83.9 kg (185 lb) 02/19/2025 9:15 AM EDT Height 182.9 cm (6') 02/19/2025 9:15 AM EDT Body Mass Index 25.09 02/19/2025 9:15 AM EDT Plan of Treatment Health Maintenance Due Date Last Done Comments Hemoglobin A1c 1983 Lipid Panel 1983 Depression Screening 1995 Hepatitis C Screening 2001 DTaP,Tdap,and Td Vaccines (1 - Tdap) 2002 COVID-19 Vaccine (1 - 2024-2 6 season) 2025 Influenza Vaccine (#1) 2025 Blood Pressure 02/19/2026 02/19/2025 Meningococcal B Vaccines Aged Out No longer eligible based on patient's age to complete this topic Meningococcal Vaccines Aged Out No lo nger eligible based on patient's age to complete this topic Pneumococcal Vaccine Aged Out No long er eligible based on patient's age to complete this topic Insurance Care Teams Mapping Technician Relationship Specialty Start Date End Date Maikel Glover [address] [place] [address] PCP - General 02/19/25
--- OUTSIDE RECORDS SUMMARY | 2025-10-20 12:57 | XMS_ITS | Clinical Summary ---
Author Organization [employer] Address [address] [place] [address] Care Team Providers Care Yarn Bleaching Machine Operator Name Role Phone Unavailable Primary Care Provider Unavailabl e Social History Tobacco Use Types Packs/Day Years [...] 3-dose series) 2002 COVID-19 Vaccine (1 - 2024-2 6 season) 2025 Influenza Vaccine (#1) 2025 Zoster [...]
== END 2025-10-20 12:47 | disposition home or self-care (01) ==
LOC: HO.MRI 12:46
PROVIDERS: Visit Provider Nurse Practitioner Family
DX: R51.9 Headache, unspecified (principal); F11.91 Opioid use, unspecified, in remission; R25.9 Unspecified abnormal involuntary movements
CPT/HCPCS: 70553; A9585

== ENCOUNTER → 2025-10-20 12:55 | Outpatient (BNV) | payer OTHER, SELFPAY | PROVIDERS: Visit Provider Radiology Diagnostic Radiology | DX: R51.9 Headache, unspecified (principal) | CPT/HCPCS: 70553 ==